=== PATIENT | male | born 1955 | race Caucasian/White ===

== ENCOUNTER 2016-11-05 18:14 | Inpatient (IN) | payer BC ==
[2016-11-05] MEDS ORDERED: Eptifibatide 20 mg/10mL Inj IVP ONE ×2 (18:24→18:26)
[2016-11-05] MEDS ORDERED: Morphine 2 mg/ml ISec IVP STA (18:27)
[2016-11-05] MEDS ORDERED: Morphine 2 mg/ml ISec ONE ×2 (18:34→19:10)
[2016-11-05] MEDS ORDERED: Eptifibatide 0.75 mg/ml 100 ML IV ONE (18:35)
[2016-11-05] MEDS ORDERED: Metoprolol 1 mg/ml Inj IVP STA (18:35)
[2016-11-05] MEDS ORDERED: Metoprolol 1 mg/ml Inj IVP ONE (18:38)
[2016-11-05] MEDS ORDERED: Lidocaine 2% Inj (20ml) ONE (18:38)
[2016-11-05] MEDS ORDERED: Phenylephrine 10 mg/ml Inj ONE (18:39)
[2016-11-05] MEDS ORDERED: Midazolam 2 MG/2 ML VIAL ONE ×2 (18:39→19:06)
[2016-11-05] MEDS ORDERED: Nitroglycerin 50mg in D5W 250 ML IV ONE ×2 (18:41→18:43)
[2016-11-05] MEDS ORDERED: Iodixanol 320 MG/ML 200 ML BOTTLE IV ONE (18:41)
[2016-11-05] MEDS ORDERED: Iodixanol 320 MG/ML 100 ML BOTTLE IV ONE (18:41)
[2016-11-05] MEDS ORDERED: Iohexol 350mgl/ml 50 ML ONE (18:41)
[2016-11-05 18:42] LABS: ADD MANUAL DIFF? NO
[2016-11-05 18:43] LABS: BASO # 0.03 K/mm3 (0.0-2.0); BASO % 0.4 % (0.0-3.0); EOS # 0.3 (0.0-0.7); EOS % 3.6 % (1.5-5.0); GRAN # 4.97 (1.4-6.5); GRAN % 59.3 % (50.0-68.0); HEMATOCRIT 29.1 % (42.0-52.0); LYMPH # 2.6 (1.2-3.4); LYMPH % 30.5 % (22.0-35.0); MEAN CELL VOLUME 72.4 fL (80.0-105.0); MEAN CORPUSCULAR HEMOGLOBIN 21.9 pg (25.0-35.0); MEAN CORPUSCULAR HGB CONC 30.2 g/dl (31.0-37.0); MEAN PLATELET VOLUME 9.6 fl (7.0-11.0); MONO # 0.5 (0.1-0.6); MONO % 6.2 % (1.0-6.0); PLATELET COUNT 239 10^3/uL (120.0-450.0); RED CELL DISTRIBUTION WIDTH 17.3 % (11.5-14.5); WHITE BLOOD COUNT 8.4 10^3/ul (4.5-11.0)
[2016-11-05 18:48] LABS: ALKALINE PHOSPHATASE 65 U/L (38-133); ALT/SGPT 15 U/L (7-56); AST/SGOT 54 U/L (15-59); BILIRUBIN,TOTAL 0.4 mg/dL (0.2-1.3); BLOOD UREA NITROGEN 19 mg/dL (7-21); CALCIUM 8.8 mg/dL (8.4-10.5); CARBON DIOXIDE 27 mmol/L (21-33); CHLORIDE 107 mmol/L (98-107); GFR AFRICAN-AMERICAN > 60; GLUCOSE,RANDOM 173 mg/dL (70-110); INR 1.04 (0.93-1.08); LIPASE 71 U/L (23-300); MAGNESIUM 1.9 mg/dL (1.7-2.2); PARTIAL THROMBOPLASTIN TIME 21.9 Seconds (23.7-30.8); POTASSIUM 3.7 mmol/L (3.6-5.0); SODIUM 146 mmol/L (132-148); TOTAL PROTEIN 7.9 g/dL (5.8-8.3)
--- NOTE | 2016-11-05 18:49 | ED PDOC ---
Arrival/HPI - General Chief Complaint: Chest Pain Time Seen by Provider: 11/05/16 18:22 Historian: Patient - History of Present Illness Narrative History of Present Illness (Text): 11/05/16 18:45 61 y.o. male whose pmhx includes anemia who is BIB EMS because he developed an acute substernal chest pain radiating to both shoulders associated with diaphoresis and n/v shortly prior to calling EMS. The patient had just begun shoveling snow. He took asa prior to EMS arriving. He said he had a heavy lunch earlier this afternoon. No fever or dizziness. Time/Duration: Prior to Arrival Past Medical History - Infectious Disease Hx of Infectious Diseases: None - Cardiac Hx Cardiac Disorders: No - Pulmonary Hx Respiratory Disorders: No - Neurological Hx Neurological Disorder: No - HEENT Hx HEENT Disorder: No - Renal Hx Renal Disorder: No - Endocrine/Metabolic Hx Endocrine Disorders: No - Hematological/Oncological Hx Blood Disorders: Yes - Integumentary Hx Dermatological Disorder: No - Musculoskeletal/Rheumatological Hx Musculoskeletal Disorders: No - Gastrointestinal Hx Gastrointestinal Disorders: Yes (RECTAL BLEEDING) - Genitourinary/Gynecological Hx Genitourinary Disorders: Yes (difficulty urinating) - Psychiatric Hx Psychophysiologic Disorder: No - Anesthesia Hx Anesthesia: No (denies) - Suicidal Assessment Feels Threatened In Home Enviroment: No Family/Social History Family/Social History: CAD/AR Smoking Status: Never Smoked Hx Alcohol Use: No Allergies/Home Meds Allergies/Adverse Reactions: Allergies No Known Allergies Allergy (Verified 01/16/12 14:37) Home Medications: Home Meds Medication Instructions Recorded Confirmed No Known Home Med 11/05/16 11/05/16 Review of Systems - Review of Systems Constitutional: absent: Fatigue, Fevers Eyes: Normal ENT: Normal Respiratory: absent: SOB Cardiovascular: Chest Pain Gastrointestinal: Nausea, Vomiting. absent: Abdominal Pain Genitourinary Male: Normal Musculoskeletal: Normal Skin: Normal Neurological: absent: Headache, Dizziness Endocrine: Normal Hemo/Lymphatic: Normal Psychiatric: Normal Physical Exam Vital Signs Temp Pulse Resp BP Pulse Ox 11/05/16 18:48 73 21 133/103 H 100 11/05/16 18:40 87 22 132/83 100 11/05/16 18:32 150 H 20 133/92 H 97 11/05/16 18:25 98.7 F 78 16 124/89 95 Temperature: Afebrile Blood Pressure: Normal Pulse: Regular Respiratory Rate: Normal Appearance: Positive for: Ill-Appearing Pain Distress: None Mental Status: Positive for: Alert and Oriented X 3 - Systems Exam Head: Present: Atraumatic, Normocephalic Pupils: Present: PERRL Conjunctiva: Present: Normal Mouth: Present: Moist Mucous Membranes Pharnyx: Present: Normal. No: ERYTHEMA Neck: Present: Normal Range of Motion Respiratory/Chest: Present: Clear to Auscultation, Good Air Exchange. No: Respiratory Distress, Accessory Muscle Use Cardiovascular: Present: Regular Rate and Rhythm, Normal S1, S2. No: Murmurs Abdomen: Present: Normal Bowel Sounds. No: Tenderness, Distention, Peritoneal Signs Back: Present: Normal Inspection Upper Extremity: Present: Normal Inspection. No: Cyanosis, Edema Lower Extremity: Present: Normal Inspection. No: Edema Neurological: Present: GCS=15, CN II-XII Intact, Speech Normal Skin: Present: Diaphoretic, Pale. No: Rashes Psychiatric: Present: Alert, Oriented x 3, Normal Insight, Normal Concentration Medical Decision Making ED Course and Treatment: 11/05/16 18:52 61 y.o. male presenting to the ED with acute SSCP and ill-appearing. EKG showing marked acute STEMI. Dr. Osullivan notified immediately. Code Heart called at 18:16. Patient given asa and integrillin (bolus x 2 and drip), per Dr. Osullivan. Also given a dose of lopressor, morphine, and zofran. Still c/o chest pain though appearing more comfortable. Started on nitro drip. 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 11/05/16 19:14 Case also discussed with Dr. Pizano as patient will wind up on her service. She did confirm that he has a history of anemia; she thinks with a usual Hgb of level around 9 - 10, so he is not far from his baseline. - Critical Care Critical Care Minutes: 30 minutes - Lab Interpretations Lab Results: 11/05/16 18:35 11/05/16 18:30 Lab Results 11/05/16 18:38: Blood Type Pending, Antibody Screen Pending, BBK History Checked No verified bt 11/05/16 18:35: WBC 8.4, RBC 4.02, Hgb 8.8 L, Hct 29.1 L, MCV 72.4 L, MCH 21.9 L , MCHC 30.2 L, RDW 17.3 H, Plt Count 239, MPV 9.6, Gran % 59.3, Lymph % (Auto) 30.5, [place] % (Auto) 6.2 H, Eos % (Auto) 3.6, Baso % (Auto) 0.4, Gran # 4.97, Lymph # 2.6, [place] # 0.5, Eos # 0.3, Baso # 0.03 11/05/16 18:30: PT 11.2, INR 1.04, APTT 21.9 L, Sodium 146, Potassium 3.7, Chloride 107, Carbon Dioxide 27, Anion Gap 16, BUN 19, Creatinine 0.8, Est GFR ( Amer) > 60, Est GFR (Non-Af Amer) > 60, Random Glucose 173 H, Calcium 8.8, Magnesium 1.9, Total Bilirubin 0.4, AST 54, ALT 15, Alkaline Phosphatase 65 , Lactate Dehydrogenase 302 L, Total Creatine Kinase 48, Troponin I < 0.01, NT- Pro-B Natriuret Pep 24.1, Total Protein 7.9, Albumin 3.9, Globulin 4.0, Albumin/ Globulin Ratio 1.0 L, Lipase 71 - RAD Interpretation Narrative RAD Interpretations (Text): 11/05/16 18:57 CXR: nad Radiology Orders: 11/05/16 18:25 CHEST PORTABLE [RAD] Stat - EKG Interpretation EKG Interpretation (Text): 11/05/16 18:57 NSR @ 79 with AMINAH v1-v6, I, avL with reciprocal changes inferiorly. Interpreted by ED Physician: Yes Type: 12 lead EKG - Medication Orders Current Medication Orders: Discontinued Medications Aspirin (Aspirin) Confirm Administered Dose 325 mg .ROUTE .STK-MED ONE Stop: 11/05/16 18:24 Last Admin: 11/05/16 18:23 Dose: Aspirin (Aspirin Chewable) 324 mg PO STAT STA Stop: 11/05/16 18:27 Last Admin: 11/05/16 18:26 Dose: Atropine Sulfate (Atropine) Confirm Administered Dose 1 mg .ROUTE .STK-MED ONE Stop: 11/05/16 18:39 Bivalirudin (Angiomax) Confirm Administered Dose 250 mg IV .STK-MED ONE Stop: 11/05/16 18:39 Eptifibatide (Integrilin Bolus) Confirm Administered Dose 20 mg IVP .STK-MED ONE Stop: 11/05/16 18:25 Last Admin: 11/05/16 18:26 Dose: 20 MG IVP Administration Document 11/05/16 18:26 [facility] (Rec: 11/05/16 18:56 [facility] [id number]) Charges for Administration # of IVP Administrations 1 Eptifibatide (Integrilin Bolus) Confirm Administered Dose 20 mg IVP .STK-MED ONE Stop: 11/05/16 18:27 Last Admin: 11/05/16 18:36 Dose: 20 MG IVP Administration Document 11/05/16 18:36 [facility] (Rec: 11/05/16 18:57 [facility] [id number]) Charges for Administration # of IVP Administrations 1 Fentanyl (Fentanyl) Confirm Administered Dose 100 mcg .ROUTE .STK-MED ONE Stop: 11/05/16 18:41 Heparin Sodium (Porcine) (Heparin) Confirm Administered Dose 10,000 units .ROUTE .STK-MED ONE Stop: 11/05/16 18:40 Eptifibatide (Integrilin) Confirm Administered Dose 100 mls @ ud IV .STK-MED ONE Stop: 11/05/16 18:36 Last Admin: 11/05/16 18:36 Dose: 12 MG Comments: 12ml eMAR Start Stop Document 11/05/16 18:36 [facility] (Rec: 11/05/16 19:03 [facility] [id number]) Intravenous Solution Start Date 11/05/16 Start Time 18:36 Nitroglycerin/Dextrose (Nitroglycerin 50 Mg/250 Ml D5w) Confirm Administered Dose 250 mls @ ud IV .STK-MED ONE Stop: 11/05/16 18:42 Last Admin: 11/05/16 18:48 Dose: Heparin Sodium (Porcine) (Heparin 1000 Units/500 Ml Ns) Confirm Administered Dose 1,500 mls @ ud IV .STK-MED ONE Stop: 11/05/16 18:42 Nitroglycerin/Dextrose (Nitroglycerin 50 Mg/250 Ml D5w) Confirm Administered Dose 250 mls @ ud IV .STK-MED ONE Stop: 11/05/16 18:44 Last Admin: 11/05/16 18:44 Dose: 3 MG Comments: 3 ml eMAR Start Stop Document 11/05/16 18:44 [facility] (Rec: 11/05/16 19:06 [facility] [id number]) Intravenous Solution Start Date 11/05/16 Start Time 18:44 Amiodarone HCl/Dextrose (Nexterone 150 Mg In Dextrose 100 Ml (Premix)) Confirm Administered Dose 100 mls @ ud .ROUTE .STK-MED ONE Stop: 11/05/16 19:13 Iodixanol (Visipaque 320 Mg/Ml 100 Ml) Confirm Administered Dose 100 ml IV .STK- MED ONE Stop: 11/05/16 18:42 Iodixanol (Visipaque 320 Mg/Ml 200 Ml) Confirm Administered Dose 200 ml IV .STK- MED ONE Stop: 11/05/16 18:42 Iohexol (Omnipaque 350mg/Ml 50 Ml) Confirm Administered Dose 50 ml .ROUTE .STK- MED ONE Stop: 11/05/16 18:42 Lidocaine HCl (Lidocaine 2% 20ml Vial) Confirm Administered Dose 20 ml .ROUTE .STK-MED ONE Stop: 11/05/16 18:39 Metoprolol Tartrate (Lopressor) 5 mg IVP STAT STA Stop: 11/05/16 18:36 Last Admin: 11/05/16 18:35 Dose: 5 MG IVP Administration Document 11/05/16 18:35 [facility] (Rec: 11/05/16 19:04 [facility] [id number]) Charges for Administration # of IVP Administrations 1 Metoprolol Tartrate (Lopressor) Confirm Administered Dose 5 mg IVP .STK-MED ONE Stop: 11/05/16 18:39 Last Admin: 11/05/16 18:38 Dose: Midazolam HCl (Versed Inj) Confirm Administered Dose 2 mg .ROUTE .STK-MED ONE Stop: 11/05/16 18:40 Midazolam HCl (Versed Inj) Confirm Administered Dose 2 mg .ROUTE .STK-MED ONE Stop: 11/05/16 19:07 Morphine Sulfate (Morphine) 2 mg IVP STAT STA Stop: 11/05/16 18:28 Last Admin: 11/05/16 18:21 Dose: 2 MG MAR Pain Assessment Document 11/05/16 18:21 [facility] (Rec: 11/05/16 18:58 [facility] [id number]) Pain Reassessment Is this a pain reassessment? Yes Sleep Is patient sleeping during reassessment? No Presence of Pain Presence of Pain Yes IVP Administration Document 11/05/16 18:21 [facility] (Rec: 11/05/16 18:58 [facility] [id number]) Charges for Administration # of IVP Administrations 1 Morphine Sulfate (Morphine) Confirm Administered Dose 2 mg .ROUTE .STK-MED ONE Stop: 11/05/16 18:35 Last Admin: 11/05/16 18:34 Dose: Morphine Sulfate (Morphine) Confirm Administered Dose 2 mg .ROUTE .STK-MED ONE Stop: 11/05/16 19:11 Ondansetron HCl (Zofran Inj) 4 mg IVP STAT STA Stop: 11/05/16 18:27 Last Admin: 11/05/16 18:20 Dose: 4 MG IVP Administration Document 11/05/16 18:20 [facility] (Rec: 11/05/16 18:58 [facility] [id number]) Charges for Administration # of IVP Administrations 1 Ondansetron HCl (Zofran Inj) Confirm Administered Dose 4 mg .ROUTE .STK-MED ONE Stop: 11/05/16 18:35 Last Admin: 11/05/16 18:36 Dose: Phenylephrine HCl (Phenylephrine Inj) Confirm Administered Dose 10 mg .ROUTE .STK-MED ONE Stop: 11/05/16 18:40 Ticagrelor (Brilinta) Confirm Administered Dose 180 mg .ROUTE .STK-MED ONE Stop: 11/05/16 18:47 Last Admin: 11/05/16 18:44 Dose: 180 MG Disposition/Present on Arrival - Present on Arrival Any Indicators Present on Arrival: No History of DVT/PE: No History of Uncontrolled Diabetes: No Urinary Catheter: No History of Decub. Ulcer: No History Surgical Site Infection Following: None - Disposition Have Diagnosis and Disposition been Completed?: Yes Diagnosis: Acute ST elevation myocardial infarction (STEMI), Anemia Disposition: HOSPITALIZED Disposition Time: 18:16 Patient Plan: Admission, ICU Patient Problems: Current Active Problems Problem Status Diagnosed Acute ST elevation myocardial infarction (STEMI) Acute Condition: CRITICAL
[2016-11-05 19:01] LABS: TROPONIN I < 0.01 ng/mL
[2016-11-05] MEDS ORDERED: Amiodarone 150 mg/D5W 100 ml 100 ML ONE (19:12)
--- NOTE | 2016-11-05 19:16 | CP.PCM.CON ---
<Danielle Perez - Last Filed: 11/05/16 22:57> History of Present Illness - History of Present Illness History of Present Illness: PGY-[address] Terry ICU consultation: Cardiac Cath pt s/p code heart 61 years old male with chronic anemia brought by EMS for an acute substernal chest pain radiating to both shoulders associated with diaphoresis and n/v shortly after just begun shoveling snow. He took asa prior to EMS arriving. He said he had a heavy lunch earlier this afternoon. No fever or dizziness. EKG on arrival showed acute STEMI. NSR @ 79 with AMINAH v1-v6, avL with reciprical changes inferiorly. Code heart called at 18:16. Pt was given ASA and integrillin (bolus x 2 and drip), lopressor x 1, morphine, zofran. Then started on nitro drip and went to laboratory animal facility supervisor. Pt had V. fib arrest requiring defibrillator to shock. His blood pressure was low from morphine and improves after narcan. Pt had a stenosis in LAD and had a DANIELLE placement. Seed Potato Cutter recommends amiodarone drip x 24 hours with integrillin. BP watch. Pt is in the ICU at this moment. Denies chest pain, SOB, N/V/D/C, dysuria. At baseline, pt has exertional chest pain, relieved at rest, no exertional dyspnea. Able to climb one flight of stairs w/o SOB. use 1 pillow at night. Last stress test was last year. Pt states that it was normal. PMH Chronic Anemia Gastritis Internal and external hemorroids PSH None FH Dad 70s for heart attack SH Denies ever smoke. Drink twice a year. Denies drug All NKDA Med None PMD - Dr. Pizano Seed Potato Cutter - Dr. Palma Past Patient History - Infectious Disease Hx of Infectious Diseases: None - Past Medical History & Family History Past Medical History?: Yes - Past Social History Smoking Status: Never Smoked - CARDIAC Hx Cardiac Disorders: No - PULMONARY Hx Respiratory Disorders: No - NEUROLOGICAL Hx Neurological Disorder: No - HEENT Hx HEENT Problems: No - RENAL Hx Chronic Kidney Disease: No - ENDOCRINE/METABOLIC Hx Endocrine Disorders: No - HEMATOLOGICAL/ONCOLOGICAL Hx Blood Disorders: Yes - INTEGUMENTARY Hx Dermatological Problems: No - MUSCULOSKELETAL/RHEUMATOLOGICAL Hx Musculoskeletal Disorders: No - GASTROINTESTINAL Hx Gastrointestinal Disorders: Yes (RECTAL BLEEDING) - GENITOURINARY/GYNECOLOGICAL Hx Genitourinary Disorders: Yes (difficulty urinating) - PSYCHIATRIC Hx Psychophysiologic Disorder: No - SURGICAL HISTORY Hx Surgeries: No (denies) - ANESTHESIA Hx Anesthesia: No (denies) Meds Allergies/Adverse Reactions: Allergies Allergy/AdvReac Type Severity Reaction Status Date / Time No Known Allergies Allergy Verified 01/16/12 14:37 Physical Exam - Constitutional Appears: No Acute Distress - Head Exam Head Exam: ATRAUMATIC, NORMOCEPHALIC - Eye Exam Eye Exam: EOMI, Normal appearance, PERRL - ENT Exam ENT Exam: Mucous Membranes Moist - Neck Exam Neck exam: Positive for: Normal Inspection - Respiratory Exam Respiratory Exam: Clear to Auscultation Bilateral, NORMAL BREATHING PATTERN. absent: Rales, Rhonchi, Wheezes - Cardiovascular Exam Cardiovascular Exam: REGULAR RHYTHM, +S1, +S2. absent: Systolic Murmur - GI/Abdominal Exam GI & Abdominal Exam: Normal Bowel Sounds, Soft. absent: Distended, Rigid, Tenderness - Extremities Exam Extremities exam: Positive for: normal capillary refill, pedal pulses present. Negative for: calf tenderness, pedal edema Additional comments: R groin dressing d/c/i - Neurological Exam Neurological exam: Alert, Oriented x3 - Skin Skin Exam: Dry, Warm Results - Vital Signs Recent Vital Signs: Last Vital Signs Temp 98.7 F 11/05/16 18:25 Pulse 73 11/05/16 18:48 Resp 21 11/05/16 18:48 BP 133/103 H 11/05/16 18:48 Pulse Ox 100 11/05/16 18:48 - Labs Result Diagrams: 11/05/16 18:35 11/05/16 18:30 Labs: Laboratory Results - last 24 hr 11/05/16 11/05/16 11/05/16 18:30 18:35 18:38 WBC 8.4 RBC 4.02 Hgb 8.8 L Hct 29.1 L MCV 72.4 L MCH 21.9 L MCHC 30.2 L RDW 17.3 H Plt Count 239 MPV 9.6 Gran % 59.3 Lymph % (Auto) 30.5 [place] % (Auto) 6.2 H Eos % (Auto) 3.6 Baso % (Auto) 0.4 Gran # 4.97 Lymph # 2.6 [place] # 0.5 Eos # 0.3 Baso # 0.03 PT 11.2 INR 1.04 APTT 21.9 L Sodium 146 Potassium 3.7 Chloride 107 Carbon Dioxide 27 Anion Gap 16 BUN 19 Creatinine 0.8 Est GFR ( Amer) > 60 Est GFR (Non-Af Amer) > 60 Random Glucose 173 H Calcium 8.8 Magnesium 1.9 Total Bilirubin 0.4 AST 54 ALT 15 Alkaline Phosphatase 65 Lactate Dehydrogenase 302 L Total Creatine Kinase 48 Troponin I < 0.01 NT-Pro-B Natriuret Pep 24.1 Total Protein 7.9 Albumin 3.9 Globulin 4.0 Albumin/Globulin Ratio 1.0 L Lipase 71 BBK History Checked No verified bt Assessment & Plan - Assessment and Plan (Free Text) Plan: 61 M, with Hx of stable angina and chronic anemia hx of IV Fe, had a STEMI today at anterior heart s/p PTCA. DANIELLE placed in LAD. He had v-fib s/p shock. BP was low from morphine and improves on narcan. Neuro: Mentation at baseline CV: Amiodarone drip Brilinta ASA 81 Integrillin drip Lipitor 40 Lisinopril 2.5 Lopressor 25 BID NS @ 100 Check lipid, a1c Pulm: Maintain [id number] Duoneb GI: Protonix ppx Heme: Microcytic anemia at 8.8 SCD unaffected leg Fe study, B12. folate, stool occult Renal/: Monitor Urine output Continue to monitor electrolytes will replace/replete as needed Endo: Maintain euglycemia Check TSH, T4 ID: None S/R/D/w Dr. Terry - Date & Time Date: 11/05/16 Time: 20:25 <Sam Terry MD - Last Filed: 11/06/16 07:22> Meds - Medications Medications: Current Medications Acetaminophen (Tylenol 325mg Tab) 650 mg PO Q4H PRN PRN Reason: Pain, Mild (1-3) Aspirin (Ecotrin) 81 mg PO DAILY RADHA Atorvastatin Calcium (Lipitor) 40 mg PO DIN RADHA Eptifibatide (Integrilin) 100 mls @ 11.322 mls/hr IV .Q8H50M RADHA; 2 MCG/KG/MIN PRN Reason: Protocol Stop: 11/06/16 12:00 Last Admin: 11/06/16 00:20 Dose: 11.322 mls/hr Amiodarone HCl/Dextrose (Nexterone 360 Mg In D5w 200 Ml (Premix)) 200 mls @ 16.667 mls/hr IV .Q12H RADHA; 0.5 MG/MIN PRN Reason: Protocol Last Admin: 11/06/16 02:05 Dose: 16.667 mls/hr Lisinopril (Zestril) 2.5 mg PO DAILY RADHA Metoprolol Tartrate (Lopressor) 25 mg PO BID RADHA Morphine Sulfate (Morphine) 2 mg IVP Q6H PRN PRN Reason: Pain, moderate (4-7) Pantoprazole Sodium (Protonix Inj) 40 mg IVP DAILY RADHA Ticagrelor (Brilinta) 90 mg PO BID RADHA Zolpidem Tartrate (Ambien) 5 mg PO HS PRN PRN Reason: Insomnia Results - Vital Signs Recent Vital Signs: Last Vital Signs Temp 97.5 F L 11/06/16 04:00 Pulse 75 11/06/16 04:00 Resp 22 11/06/16 04:00 BP 114/55 L 11/06/16 04:00 Pulse Ox 97 11/06/16 04:00 - Labs Result Diagrams: 11/06/16 05:30 11/06/16 05:30 Labs: Laboratory Results - last 24 hr 11/05/16 11/05/16 11/05/16 18:30 18:35 18:38 WBC 8.4 RBC 4.02 Hgb 8.8 L Hct 29.1 L MCV 72.4 L MCH 21.9 L MCHC 30.2 L RDW 17.3 H Plt Count 239 MPV 9.6 Gran % 59.3 Lymph % (Auto) 30.5 [place] % (Auto) 6.2 H Eos % (Auto) 3.6 Baso % (Auto) 0.4 Gran # 4.97 Lymph # 2.6 [place] # 0.5 Eos # 0.3 Baso # 0.03 PT 11.2 INR 1.04 APTT 21.9 L Sodium 146 Potassium 3.7 Chloride 107 Carbon Dioxide 27 Anion Gap 16 BUN 19 Creatinine 0.8 Est GFR ( Amer) > 60 Est GFR (Non-Af Amer) > 60 Random Glucose 173 H Calcium 8.8 Magnesium 1.9 Iron TIBC % Saturation Total Bilirubin 0.4 AST 54 ALT 15 Alkaline Phosphatase 65 Lactate Dehydrogenase 302 L Total Creatine Kinase 48 CK-MB (CK-2) CK-MB (CK-2) % Troponin I < 0.01 NT-Pro-B Natriuret Pep 24.1 Total Protein 7.9 Albumin 3.9 Globulin 4.0 Albumin/Globulin Ratio 1.0 L Triglycerides Cholesterol LDL Cholesterol Direct HDL Cholesterol Lipase 71 Free T4 Thyroxine (T4) TSH 3rd Generation Blood Type A POSITIVE Blood Type Confirm Antibody Screen Negative BBK History Checked No verified bt 11/05/16 11/06/16 11/06/16 18:45 02:33 05:30 WBC 12.8 H D 11.4 H RBC 4.41 4.22 Hgb 9.7 L 9.2 L Hct 31.9 L 30.4 L MCV 72.3 L 72.0 L MCH 22.0 L 21.8 L MCHC 30.4 L 30.3 L RDW 17.4 H 17.5 H Plt Count 251 258 MPV 9.7 10.4 Gran % 93.8 H Lymph % (Auto) 3.7 L [place] % (Auto) 2.4 Eos % (Auto) 0.0 L Baso % (Auto) 0.1 Gran # 11.97 H Lymph # 0.5 L [place] # 0.3 Eos # 0.0 Baso # 0.01 PT 11.1 INR 1.03 APTT 23.6 L Sodium 142 142 Potassium 4.7 4.4 Chloride 107 107 Carbon Dioxide 28 27 Anion Gap 12 12 BUN 18 18 Creatinine 0.8 0.7 Est GFR ( Amer) > 60 > 60 Est GFR (Non-Af Amer) > 60 > 60 Random Glucose 159 H 139 H Calcium 8.4 8.2 L Magnesium 1.9 Iron 11 L TIBC 389 % Saturation 3 L Total Bilirubin 0.3 AST 594 H ALT 88 H Alkaline Phosphatase 62 Lactate Dehydrogenase 1888 H Total Creatine Kinase 6320 H CK-MB (CK-2) 400.0 H CK-MB (CK-2) % 6.3 H Troponin I NT-Pro-B Natriuret Pep Total Protein 7.7 Albumin 3.8 Globulin 3.9 Albumin/Globulin Ratio 1.0 L Triglycerides 51 Cholesterol 161 LDL Cholesterol Direct 113 HDL Cholesterol 27 L Lipase Free T4 1.07 Thyroxine (T4) 6.3 TSH 3rd Generation 0.59 Blood Type Blood Type Confirm A POSITIVE Antibody Screen BBK History Checked Attending/Attestation - Attestation I have personally seen and examined this patient.: Yes I have fully participated in the care of the patient.: Yes I have reviewed all pertinent clinical information: Yes Notes (Text): 11/06/16 07:21 -I agree with the above consult note done by the resident physician. Briefly, the patient is a 61 year old man admitted for STEMI and taken directly to the laboratory animal facility supervisor where he received a DANIELLE to the LAD. The procedure was complicated by ventricular tachycardia requiring chest compressions defibrillation. The patient is now stable and chest pain free, on Amioadarone drip.
[2016-11-05] MEDS ORDERED: Naloxone 0.4 mg/ml Inj (Adult) ONE (19:27)
[2016-11-05] MEDS ORDERED: Sodium Chloride 0.9% 1,000 ML IV SCH (19:45)
[2016-11-05] MEDS ORDERED: Amiodarone 360 mg/D5W 200 ml 200 ML IV SCH ×2 (20:00→20:30)
[2016-11-05] MEDS: Eptifibatide 0.75 mg/ml 100 ML IV SCH (20:00)
[2016-11-05] MEDS ORDERED: Amiodarone 150 mg/D5W 100 ml 100 ML IVPB ONE (20:02)
--- NOTE | 2016-11-05 20:31 | CARDCATH ---
PROCEDURE DATE: 11/05/2016 HISTORY: The patient is a 61-year-old male who presents with an acute anterior wall myocardial infar ction to the Emergency Room. He presented to the Emergency Room approximately 30 minutes after his o nset of symptoms which were brought on after shoveling snow. PAST MEDICAL HISTORY: Notable for history of anemia with documented hemorrhoids in the past. No pre vious bleeding history or allergies known by the family. There is no previous cardiac history. The EKG in the Emergency Room showed anterolateral ST elevations across his anterior precordium. The patient was pretreated with p.o. 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 PROCEDURE: Emergency PTCA and stent of an LAD preceded by left heart catheterization with coronary a ngiography and left ventriculogram. The right femoral artery was cannulated with a 6-[place] sheath. The findings on catheterization revealed a left ventricle that showed marked anterior apical to akinetic segments. Estimated ejection fraction is approximately 30%. His coronary anatomy revealed a right dominant circulation. The RCA revealed diffuse atherosclerosis without critical lesions. The left main artery was unremarkable. The circumflex artery and obtuse marginal branches were free of significant disease. The LAD revealed a total occlusion in the proximal LAD with a filling defect consistent with a thromb us. During the catheterization, the patient developed ventricular fibrillation which required defibrillat ion. The patient was defibrillated with 200 joules with reversion to normal sinus rhythm. The patie nt required transient pressors to maintain blood pressure. The patient was given 4000 units of intravenous heparin. The XB guiding catheter was placed in the ostium of the left main. An 0.014 ATW wire was used to crop puller ss the total occlusion. A 2.0 balloon was utilized to predilate the lesion. A 3.5 mm x 15 mm drug-eluting stent was placed and deployed at 12 atmospheres of pressure. Repeat co ronary angiography revealed an excellent result with no residual stenosis and SENDY 3 flow. Cessation of electrical irritability of the left ventricle with obtained after the 150 IV bolus of amiodarone as well as reperfusion in his anterior wall. Angio-Seal was used to close the femoral artery site. The patient tolerated the procedure well. In summary, the procedure was successful for an emergency PTCA and stent of an occluded proximal LAD preceded by cardiac catheterization which reveals single vessel disease and marked anteroapical hypok inesis. The procedure was complicated by an episode of ventricular fibrillation requiring defibrillation. Given these findings, the patient will remain on Integrilin for 18 hours, intravenous amiodarone for 24 hours, and will be transferred to the CCU. He is transferred to the CCU in stable condition. Dave Osullivan MD cc: [id number] TT: 11/05/2016 20:30:06 rn
[2016-11-05 21:28] VITALS: BMI 25.8
[2016-11-06] MEDS: Eptifibatide 0.75 mg/ml 100 ML IV SCH ×2 (00:20→10:17)
[2016-11-06] MEDS ORDERED: Amiodarone 360 mg/D5W 200 ml 200 ML IV SCH (02:00)
[2016-11-06] MEDS ORDERED: Morphine 2 mg/ml ISec IVP ONE (02:28)
[2016-11-06 02:41] LABS: ADD MANUAL DIFF? NO
[2016-11-06 02:52] LABS: ALKALINE PHOSPHATASE 62 U/L (38-133); ALT/SGPT 88 U/L (7-56); AST/SGOT 594 U/L (15-59); BASO # 0.01 K/mm3 (0.0-2.0); BASO % 0.1 % (0.0-3.0); BILIRUBIN,TOTAL 0.3 mg/dL (0.2-1.3); BLOOD UREA NITROGEN 18 mg/dL (7-21); CALCIUM 8.4 mg/dL (8.4-10.5); CARBON DIOXIDE 28 mmol/L (21-33); CHLORIDE 107 mmol/L (98-107); GFR AFRICAN-AMERICAN > 60; GLUCOSE,RANDOM 159 mg/dL (70-110); GRAN # 11.97 (1.4-6.5); GRAN % 93.8 % (50.0-68.0); HEMATOCRIT 31.9 % (42.0-52.0); LYMPH # 0.5 (1.2-3.4); LYMPH % 3.7 % (22.0-35.0); MAGNESIUM 1.9 mg/dL (1.7-2.2); MEAN CELL VOLUME 72.3 fL (80.0-105.0); MEAN CORPUSCULAR HGB CONC 30.4 g/dl (31.0-37.0); MEAN PLATELET VOLUME 9.7 fl (7.0-11.0); MONO # 0.3 (0.1-0.6); MONO % 2.4 % (1.0-6.0); PLATELET COUNT 251 10^3/uL (120.0-450.0); POTASSIUM 4.7 mmol/L (3.6-5.0); RED CELL DISTRIBUTION WIDTH 17.4 % (11.5-14.5); SODIUM 142 mmol/L (132-148); TOTAL PROTEIN 7.7 g/dL (5.8-8.3); WHITE BLOOD COUNT 12.8 10^3/ul (4.5-11.0)
[2016-11-06 02:58] LABS: INR 1.03 (0.93-1.08); PARTIAL THROMBOPLASTIN TIME 23.6 Seconds (23.7-30.8)
[2016-11-06 06:39] LABS: HEMATOCRIT 30.4 % (42.0-52.0); MEAN CORPUSCULAR HEMOGLOBIN 21.8 pg (25.0-35.0); MEAN CORPUSCULAR HGB CONC 30.3 g/dl (31.0-37.0); MEAN PLATELET VOLUME 10.4 fl (7.0-11.0); PLATELET COUNT 258 10^3/uL (120.0-450.0); RED CELL DISTRIBUTION WIDTH 17.5 % (11.5-14.5); WHITE BLOOD COUNT 11.4 10^3/ul (4.5-11.0)
[2016-11-06 06:40] LABS: BLOOD UREA NITROGEN 18 mg/dL (7-21); CALCIUM 8.2 mg/dL (8.4-10.5); CARBON DIOXIDE 27 mmol/L (21-33); CHLORIDE 107 mmol/L (98-107); CHOLESTEROL 161 mg/dL (130-200); GFR AFRICAN-AMERICAN > 60; GLUCOSE,RANDOM 139 mg/dL (70-110); POTASSIUM 4.4 mmol/L (3.6-5.0); SODIUM 142 mmol/L (132-148)
[2016-11-06 06:48] LABS: ADD MANUAL DIFF? YES; IRON 11 ug/dL (45-180)
[2016-11-06 06:56] LABS: FREE T4 1.07 ng/dL (0.78-2.19); T4 6.3 ug/dL (5.5-11.0)
[2016-11-06 07:09] LABS: THYROID STIMULATING HORMONE 0.59 mIU/mL (0.46-4.68)
[2016-11-06] MEDS ORDERED: Morphine 2 mg/ml ISec IVP PRN (07:14)
--- NOTE | 2016-11-06 07:54 | CP.CCUPN ---
<Kaley Ivory - Last Filed: 11/06/16 13:08> CCU Subjective - Physician Review Events Since Last Encounter (Free Text): 11/06/16 08:08 Patient seen and examined bedside. Still complaining of substernal CP and nausea. Has not had any episodes of emesis. Patient denies abd pain, SOB. 11/06/16 12:09 Patient taken back to label cutter by cardiology team, new troponin 181. Critical Care Time Spent (in minutes): 35 CCU Objective - Vital Signs / Intake & Output Vital Signs (Last 4 hours): Vital Signs Temp Pulse Resp BP Pulse Ox 11/06/16 06:00 68 14 123/83 97 11/06/16 05:00 72 22 108/72 99 11/06/16 04:28 67 21 97 11/06/16 04:00 97.5 F L 75 22 114/55 L 97 11/06/16 03:57 84 97 Intake and Output (Last 8hrs): Intake & Output 11/05/16 11/06/16 11/06/16 22:59 06:59 14:59 Intake Total 901 Output Total 350 Balance 551 Weight 160 lb 161 lb 1.6 oz Intake: IV 781 Right Hand 400 Right Antecubital 132 Right External Jugular 249 Oral 120 Output: Urine 350 Urine, Voided 350 Emesis 0 Other: # Voids Urine, Voided 1 # Bowel Movements 0 - Physical Exam Head: Positive for: Atraumatic, Normocephalic Pupils: Positive for: PERRL Conjunctiva: Positive for: Normal Mouth: Positive for: Moist Mucous Membranes Pharnyx: Positive for: Normal. Negative for: ERYTHEMA Neck: Positive for: Normal Range of Motion Respiratory/Chest: Positive for: Clear to Auscultation, Good Air Exchange. Negative for: Respiratory Distress, Accessory Muscle Use Cardiovascular: Positive for: Regular Rate and Rhythm, Normal S1, S2. Negative for: Murmurs Abdomen: Positive for: Normal Bowel Sounds. Negative for: Tenderness, Distention, Peritoneal Signs Back: Positive for: Normal Inspection Upper Extremity: Positive for: Normal Inspection. Negative for: Cyanosis, Edema Lower Extremity: Positive for: Normal Inspection. Negative for: Edema Neurological: Positive for: GCS=15, CN II-XII Intact, Speech Normal Skin: Positive for: Diaphoretic, Pale. Negative for: Rashes Psychiatric: Positive for: Alert, Oriented x 3, Normal Insight, Normal Concentration - Medications Active Medications: Active Medications Generic Name Dose Route Start Last Admin Trade Name Freq PRN Reason Stop Dose Admin Acetaminophen 650 mg 11/05/16 19:40 Tylenol 325mg Tab PO Q4H PRN Pain, Mild (1-3) Aspirin 81 mg 11/06/16 10:00 Ecotrin PO DAILY RADHA Atorvastatin Calcium 40 mg 11/06/16 17:00 Lipitor PO DIN RADHA Eptifibatide 100 mls @ 11.322 mls/hr 11/05/16 19:45 11/06/16 00:20 Integrilin IV 11/06/16 12:00 11.322 mls/hr .Q8H50M RADHA Administration Protocol 2 MCG/KG/MIN Amiodarone HCl/Dextrose 200 mls @ 16.667 mls/hr 11/06/16 02:00 11/06/16 02:05 Nexterone 360 Mg In D5w 200 Ml (Premix) IV 16.667 mls/hr .Q12H RADHA Administration Protocol 0.5 MG/MIN Lisinopril 2.5 mg 11/06/16 10:00 Zestril PO DAILY RADHA Metoprolol Tartrate 25 mg 11/06/16 10:00 Lopressor PO BID RADHA Morphine Sulfate 2 mg 11/06/16 07:14 Morphine IVP Q6H PRN Pain, moderate (4-7) Nitroglycerin 0.4 mg 11/06/16 07:45 11/06/16 07:46 Nitrostat Sl Tab SL 11/06/16 07:56 0.4 mg Q5M RADHA Administration Pantoprazole Sodium 40 mg 11/06/16 10:00 Protonix Inj IVP DAILY RADHA Ticagrelor 90 mg 11/06/16 10:00 Brilinta PO BID RADHA Zolpidem Tartrate 5 mg 11/05/16 19:40 Ambien PO HS PRN Insomnia - Patient Studies Lab Studies: Lab Studies 11/06/16 11/06/16 11/05/16 Range/Units 05:30 02:33 18:45 WBC 11.4 H 12.8 H D (4.5-11.0) 10^3/ul RBC 4.22 4.41 (3.5-6.1) 10^6/uL Hgb 9.2 L 9.7 L (14.0-18.0) gm/dL Hct 30.4 L 31.9 L (42.0-52.0) % MCV 72.0 L 72.3 L (80.0-105.0) fL MCH 21.8 L 22.0 L (25.0-35.0) pg MCHC 30.3 L 30.4 L (31.0-37.0) g/dl RDW 17.5 H 17.4 H (11.5-14.5) % Plt Count 258 251 (120.0-450.0) 10^3/uL MPV 10.4 9.7 (7.0-11.0) fl Gran % 93.8 H (50.0-68.0) % Lymph % (Auto) 3.7 L (22.0-35.0) % [place] % (Auto) 2.4 (1.0-6.0) % Eos % (Auto) 0.0 L (1.5-5.0) % Baso % (Auto) 0.1 (0.0-3.0) % Gran # 11.97 H (1.4-6.5) Lymph # 0.5 L (1.2-3.4) [place] # 0.3 (0.1-0.6) Eos # 0.0 (0.0-0.7) Baso # 0.01 (0.0-2.0) K/mm3 PT 11.1 (9.9-11.8) Seconds INR 1.03 (0.93-1.08) APTT 23.6 L (23.7-30.8) Seconds Sodium 142 142 (132-148) mmol/L Potassium 4.4 4.7 (3.6-5.0) mmol/L Chloride 107 107 (98-107) mmol/L Carbon Dioxide 27 28 (21-33) mmol/L Anion Gap 12 12 (10-20) BUN 18 18 (7-21) mg/dL Creatinine 0.7 0.8 (0.5-1.4) mg/dL Est GFR ( Amer) > 60 > 60 Est GFR (Non-Af Amer) > 60 > 60 Random Glucose 139 H 159 H (70-110) mg/dL Calcium 8.2 L 8.4 (8.4-10.5) mg/dL Magnesium 1.9 (1.7-2.2) mg/dL Iron 11 L (45-180) ug/dL TIBC 389 (261-462) ug/dL % Saturation 3 L (20-55) % Total Bilirubin 0.3 (0.2-1.3) mg/dL AST 594 H (15-59) U/L ALT 88 H (7-56) U/L Alkaline Phosphatase 62 (38-133) U/L Lactate Dehydrogenase 1888 H (333-699) U/L Total Creatine Kinase 6320 H (35-230) U/L CK-MB (CK-2) 400.0 H (0.0-3.6) ng/mL CK-MB (CK-2) % 6.3 H (2.5-3.0) % Troponin I ng/mL NT-Pro-B Natriuret Pep (0-450) pg/mL Total Protein 7.7 (5.8-8.3) g/dL Albumin 3.8 (3.0-4.8) g/dL Globulin 3.9 gm/dL Albumin/Globulin Ratio 1.0 L (1.1-1.8) Triglycerides 51 (35-160) mg/dL Cholesterol 161 (130-200) mg/dL LDL Cholesterol Direct 113 (0-129) mg/dL HDL Cholesterol 27 L (29-60) mg/dL Lipase (23-300) U/L Free T4 1.07 (0.78-2.19) ng/dL Thyroxine (T4) 6.3 (5.5-11.0) ug/dL TSH 3rd Generation 0.59 (0.46-4.68) mIU/mL Blood Type Blood Type Confirm A POSITIVE Antibody Screen BBK History Checked 11/05/16 11/05/16 11/05/16 Range/Units 18:38 18:35 18:30 WBC 8.4 (4.5-11.0) 10^3/ul RBC 4.02 (3.5-6.1) 10^6/uL Hgb 8.8 L (14.0-18.0) gm/dL Hct 29.1 L (42.0-52.0) % MCV 72.4 L (80.0-105.0) fL MCH 21.9 L (25.0-35.0) pg MCHC 30.2 L (31.0-37.0) g/dl RDW 17.3 H (11.5-14.5) % Plt Count 239 (120.0-450.0) 10^3/uL MPV 9.6 (7.0-11.0) fl Gran % 59.3 (50.0-68.0) % Lymph % (Auto) 30.5 (22.0-35.0) % [place] % (Auto) 6.2 H (1.0-6.0) % Eos % (Auto) 3.6 (1.5-5.0) % Baso % (Auto) 0.4 (0.0-3.0) % Gran # 4.97 (1.4-6.5) Lymph # 2.6 (1.2-3.4) [place] # 0.5 (0.1-0.6) Eos # 0.3 (0.0-0.7) Baso # 0.03 (0.0-2.0) K/mm3 PT 11.2 (9.9-11.8) Seconds INR 1.04 (0.93-1.08) APTT 21.9 L (23.7-30.8) Seconds Sodium 146 (132-148) mmol/L Potassium 3.7 (3.6-5.0) mmol/L Chloride 107 (98-107) mmol/L Carbon Dioxide 27 (21-33) mmol/L Anion Gap 16 (10-20) BUN 19 (7-21) mg/dL Creatinine 0.8 (0.5-1.4) mg/dL Est GFR ( Amer) > 60 Est GFR (Non-Af Amer) > 60 Random Glucose 173 H (70-110) mg/dL Calcium 8.8 (8.4-10.5) mg/dL Magnesium 1.9 (1.7-2.2) mg/dL Iron (45-180) ug/dL TIBC (261-462) ug/dL % Saturation (20-55) % Total Bilirubin 0.4 (0.2-1.3) mg/dL AST 54 (15-59) U/L ALT 15 (7-56) U/L Alkaline Phosphatase 65 (38-133) U/L Lactate Dehydrogenase 302 L (333-699) U/L Total Creatine Kinase 48 (35-230) U/L CK-MB (CK-2) (0.0-3.6) ng/mL CK-MB (CK-2) % (2.5-3.0) % Troponin I < 0.01 ng/mL NT-Pro-B Natriuret Pep 24.1 (0-450) pg/mL Total Protein 7.9 (5.8-8.3) g/dL Albumin 3.9 (3.0-4.8) g/dL Globulin 4.0 gm/dL Albumin/Globulin Ratio 1.0 L (1.1-1.8) Triglycerides (35-160) mg/dL Cholesterol (130-200) mg/dL LDL Cholesterol Direct (0-129) mg/dL HDL Cholesterol (29-60) mg/dL Lipase 71 (23-300) U/L Free T4 (0.78-2.19) ng/dL Thyroxine (T4) (5.5-11.0) ug/dL TSH 3rd Generation (0.46-4.68) mIU/mL Blood Type A POSITIVE Blood Type Confirm Antibody Screen Negative BBK History Checked No verified bt Laboratory Results - last 24 hr 11/05/16 11/05/16 11/05/16 18:30 18:35 18:38 WBC 8.4 RBC 4.02 Hgb 8.8 L Hct 29.1 L MCV 72.4 L MCH 21.9 L MCHC 30.2 L RDW 17.3 H Plt Count 239 MPV 9.6 Gran % 59.3 Lymph % (Auto) 30.5 [place] % (Auto) 6.2 H Eos % (Auto) 3.6 Baso % (Auto) 0.4 Gran # 4.97 Lymph # 2.6 [place] # 0.5 Eos # 0.3 Baso # 0.03 PT 11.2 INR 1.04 APTT 21.9 L Sodium 146 Potassium 3.7 Chloride 107 Carbon Dioxide 27 Anion Gap 16 BUN 19 Creatinine 0.8 Est GFR ( Amer) > 60 Est GFR (Non-Af Amer) > 60 Random Glucose 173 H Calcium 8.8 Magnesium 1.9 Iron TIBC % Saturation Total Bilirubin 0.4 AST 54 ALT 15 Alkaline Phosphatase 65 Lactate Dehydrogenase 302 L Total Creatine Kinase 48 CK-MB (CK-2) CK-MB (CK-2) % Troponin I < 0.01 NT-Pro-B Natriuret Pep 24.1 Total Protein 7.9 Albumin 3.9 Globulin 4.0 Albumin/Globulin Ratio 1.0 L Triglycerides Cholesterol LDL Cholesterol Direct HDL Cholesterol Lipase 71 Free T4 Thyroxine (T4) TSH 3rd Generation Blood Type A POSITIVE Blood Type Confirm Antibody Screen Negative BBK History Checked No verified bt 11/05/16 11/06/16 11/06/16 18:45 02:33 05:30 WBC 12.8 H D 11.4 H RBC 4.41 4.22 Hgb 9.7 L 9.2 L Hct 31.9 L 30.4 L MCV 72.3 L 72.0 L MCH 22.0 L 21.8 L MCHC 30.4 L 30.3 L RDW 17.4 H 17.5 H Plt Count 251 258 MPV 9.7 10.4 Gran % 93.8 H Lymph % (Auto) 3.7 L [place] % (Auto) 2.4 Eos % (Auto) 0.0 L Baso % (Auto) 0.1 Gran # 11.97 H Lymph # 0.5 L [place] # 0.3 Eos # 0.0 Baso # 0.01 PT 11.1 INR 1.03 APTT 23.6 L Sodium 142 142 Potassium 4.7 4.4 Chloride 107 107 Carbon Dioxide 28 27 Anion Gap 12 12 BUN 18 18 Creatinine 0.8 0.7 Est GFR ( Amer) > 60 > 60 Est GFR (Non-Af Amer) > 60 > 60 Random Glucose 159 H 139 H Calcium 8.4 8.2 L Magnesium 1.9 Iron 11 L TIBC 389 % Saturation 3 L Total Bilirubin 0.3 AST 594 H ALT 88 H Alkaline Phosphatase 62 Lactate Dehydrogenase 1888 H Total Creatine Kinase 6320 H CK-MB (CK-2) 400.0 H CK-MB (CK-2) % 6.3 H Troponin I NT-Pro-B Natriuret Pep Total Protein 7.7 Albumin 3.8 Globulin 3.9 Albumin/Globulin Ratio 1.0 L Triglycerides 51 Cholesterol 161 LDL Cholesterol Direct 113 HDL Cholesterol 27 L Lipase Free T4 1.07 Thyroxine (T4) 6.3 TSH 3rd Generation 0.59 Blood Type Blood Type Confirm A POSITIVE Antibody Screen BBK History Checked EKG/Cardiology Studies: Cardiology / EKG Studies 11/05/16 18:22 EKG [ELECTROCARDIOGRAM] Stat Comment: Reason For Exam: CHEST PAIN 11/05/16 19:38 ELECTROCARDIOGRAM Urgent Comment: 12 lead EKG upon arrival in unit Reason For Exam: post ptca 11/05/16 19:45 ELECTROCARDIOGRAM DAILY Comment: Reason For Exam: chest pain 11/06/16 02:22 EKG [ELECTROCARDIOGRAM] Stat Comment: Reason For Exam: new onset 3/10 chest pain goint to back 11/06/16 07:42 EKG [ELECTROCARDIOGRAM] Stat Comment: Reason For Exam: CP 11/06/16 19:45 ELECTROCARDIOGRAM DAILY Comment: Reason For Exam: chest pain Review of Systems - Constitutional Constitutional: absent: Fever, Chills - EENT Eyes: absent: Change in Vision Ears: absent: Dizziness - Cardiovascular Cardiovascular: Chest Pain. absent: Dyspnea - Respiratory Respiratory: absent: Dyspnea, Pain on Inspiration - Gastrointestinal Gastrointestinal: Nausea. absent: Abdominal Pain, Vomiting - Genitourinary Genitourinary: absent: Dysuria - Neurological Neurological: absent: Headaches Critical Care Progress Note - Ventilator Checklist PUD Prophalyxis: Yes DVT Prophylaxis: Yes - Nutrition Nutrition: Nutrition Category Date Time Status Heart Healthy Diet [DIET] Diets 11/06/16 Breakfast Ordered Assessment/Plan - Assessment and Plan (Free Text) Assessment: 61 yo M w h/o chronic anemia and gastritis admitted to ICU with anterolateral STEMI now s/p PCI with DANIELLE to LAD, course complicated by need for repeat cath this morning Plan: Neuro: AAOx3, NAD. Maintain normothermia CV: s/p anterolateral STEMI with DANIELLE to LAD. No need for additional stents on repeat procedure. 2D ECHO LVEF 55% Continue cardiac meds as per cardio - amio, lasix, brilinta, lopressor, lisinopril, ASA, Morphine PRN CP Pulm: Maintain SpO2>90. No active issues. GI: GI ppx Renal: renal function stable. Continue to monitor Endo: No acute issues ID: Afebrile. No leukocytosis. No signs of infection. Will continue to monitor. Heme: Microcytic anemia of iron deficiency. Hb 9.2 today. No signs of bleeding. Continue to monitor. DVT/GI ppx: Protonix, HHD - Date & Time Date: 11/06/16 Time: 13:11 <Lucius Andres - Last Filed: 11/06/16 13:34> CCU Objective - Vital Signs / Intake & Output Vital Signs (Last 4 hours): Vital Signs Pulse BP 11/06/16 09:47 89 115/61 Intake and Output (Last 8hrs): Intake & Output 11/05/16 11/06/16 11/06/16 22:59 06:59 14:59 Intake Total 901 Output Total 350 Balance 551 Weight 160 lb 161 lb 1.6 oz Intake: IV 781 Right Hand 400 Right Antecubital 132 Right External Jugular 249 Oral 120 Output: Urine 350 Urine, Voided 350 Emesis 0 Other: Voiding Method Urinal # Voids Urine, Voided 1 # Bowel Movements 0 - Medications Active Medications: Active Medications Generic Name Dose Route Start Last Admin Trade Name Freq PRN Reason Stop Dose Admin Acetaminophen 650 mg 11/05/16 19:40 Tylenol 325mg Tab PO Q4H PRN Pain, Mild (1-3) Amiodarone HCl 400 mg 11/06/16 12:30 Cordarone PO BID [facility] Aspirin 81 mg 11/06/16 10:00 11/06/16 09:46 Ecotrin PO 81 mg DAILY RADHA Administration Atorvastatin Calcium 40 mg 11/06/16 17:00 Lipitor PO DIN RADHA Furosemide 40 mg 11/06/16 22:00 Lasix IVP Q12 RADHA Lisinopril 2.5 mg 11/06/16 10:00 11/06/16 09:47 Zestril PO 2.5 mg DAILY RAHDA Administration Metoprolol Tartrate 25 mg 11/06/16 10:00 11/06/16 09:47 Lopressor PO 25 mg BID RADHA Administration Morphine Sulfate 2 mg 11/06/16 07:14 11/06/16 10:13 Morphine IVP 2 mg Q6H PRN Administration Pain, moderate (4-7) Ondansetron HCl 4 mg 11/06/16 08:09 Zofran Inj IVP Q4H PRN Nausea/Vomiting Pantoprazole Sodium 40 mg 11/06/16 10:00 11/06/16 09:47 Protonix Inj IVP 40 mg DAILY RADHA Administration Ticagrelor 90 mg 11/06/16 10:00 11/06/16 09:46 Brilinta PO 90 mg BID RADHA Administration Zolpidem Tartrate 5 mg 11/05/16 19:40 Ambien PO HS PRN Insomnia - Patient Studies Lab Studies: Lab Studies 11/06/16 11/06/16 11/06/16 Range/Units 11:20 08:00 05:30 WBC 11.4 H (4.5-11.0) 10^3/ul RBC 4.22 (3.5-6.1) 10^6/uL Hgb 9.2 L (14.0-18.0) gm/dL Hct 30.4 L (42.0-52.0) % MCV 72.0 L (80.0-105.0) fL MCH 21.8 L (25.0-35.0) pg MCHC 30.3 L (31.0-37.0) g/dl RDW 17.5 H (11.5-14.5) % Plt Count 258 (120.0-450.0) 10^3/uL MPV 10.4 (7.0-11.0) fl Gran % (50.0-68.0) % Lymph % (Auto) (22.0-35.0) % [place] % (Auto) (1.0-6.0) % Eos % (Auto) (1.5-5.0) % Baso % (Auto) (0.0-3.0) % Gran # (1.4-6.5) Lymph # (1.2-3.4) [place] # (0.1-0.6) Eos # (0.0-0.7) Baso # (0.0-2.0) K/mm3 Neutrophils % (Manual) 90 H (50.0-70.0) % Band Neutrophils % 2 (0-2) % Lymphocytes % (Manual) 6 L (22.0-35.0) % Monocytes % (Manual) 2 (1.0-6.0) % Platelet Evaluation Normal (NORMAL) Polychromasia Slight Hypochromasia 1+ Poikilocytosis (manual Slight Anisocytosis (manual) 2+ Microcytosis (manual) 2+ Ovalocytes Slight Rouleaux Slight PT (9.9-11.8) Seconds INR (0.93-1.08) APTT (23.7-30.8) Seconds Sodium 142 (132-148) mmol/L Potassium 4.4 (3.6-5.0) mmol/L Chloride 107 (98-107) mmol/L Carbon Dioxide 27 (21-33) mmol/L Anion Gap 12 (10-20) BUN 18 (7-21) mg/dL Creatinine 0.7 (0.5-1.4) mg/dL Est GFR ( Amer) > 60 Est GFR (Non-Af Amer) > 60 Random Glucose 139 H (70-110) mg/dL Calcium 8.2 L (8.4-10.5) mg/dL Magnesium (1.7-2.2) mg/dL Iron 11 L (45-180) ug/dL TIBC 389 (261-462) ug/dL % Saturation 3 L (20-55) % Transferrin 304.89 (206-381) mg/dL Total Bilirubin (0.2-1.3) mg/dL AST (15-59) U/L ALT (7-56) U/L Alkaline Phosphatase (38-133) U/L Lactate Dehydrogenase 2193 H (333-699) U/L Total Creatine Kinase 6036 H (35-230) U/L CK-MB (CK-2) 451.0 H (0.0-3.6) ng/mL CK-MB (CK-2) % 7.5 H (2.5-3.0) % Troponin I 181.00 H* D ng/mL Total Protein (5.8-8.3) g/dL Albumin (3.0-4.8) g/dL Globulin gm/dL Albumin/Globulin Ratio (1.1-1.8) Triglycerides 51 (35-160) mg/dL Cholesterol 161 (130-200) mg/dL LDL Cholesterol Direct 113 (0-129) mg/dL HDL Cholesterol 27 L (29-60) mg/dL Free T4 1.07 (0.78-2.19) ng/dL Thyroxine (T4) 6.3 (5.5-11.0) ug/dL TSH 3rd Generation 0.59 (0.46-4.68) mIU/mL Urine Color Yellow (YELLOW) Urine Appearance Clear (CLEAR) Urine pH 6.0 (4.7-8.0) Ur Specific [place] >= 1.030 (1.005-1.035) Urine Protein Negative (<30 mg/dL) mg/dL Urine Glucose (UA) 500 H (NEGATIVE) mg/dL Urine Ketones Negative (NEGATIVE) mg/dL Urine Blood Negative (NEGATIVE) Urine Nitrate Negative (NEGATIVE) Urine Bilirubin Negative (NEGATIVE) Urine Urobilinogen 0.2 (<1 E.U./dL) E.U./dL Ur Leukocyte Esterase Negative (NEGATIVE) Kell/uL 11/06/16 Range/Units 02:33 WBC 12.8 H D (4.5-11.0) 10^3/ul RBC 4.41 (3.5-6.1) 10^6/uL Hgb 9.7 L (14.0-18.0) gm/dL Hct 31.9 L (42.0-52.0) % MCV 72.3 L (80.0-105.0) fL MCH 22.0 L (25.0-35.0) pg MCHC 30.4 L (31.0-37.0) g/dl RDW 17.4 H (11.5-14.5) % Plt Count 251 (120.0-450.0) 10^3/uL MPV 9.7 (7.0-11.0) fl Gran % 93.8 H (50.0-68.0) % Lymph % (Auto) 3.7 L (22.0-35.0) % [place] % (Auto) 2.4 (1.0-6.0) % Eos % (Auto) 0.0 L (1.5-5.0) % Baso % (Auto) 0.1 (0.0-3.0) % Gran # 11.97 H (1.4-6.5) Lymph # 0.5 L (1.2-3.4) [place] # 0.3 (0.1-0.6) Eos # 0.0 (0.0-0.7) Baso # 0.01 (0.0-2.0) K/mm3 Neutrophils % (Manual) (50.0-70.0) % Band Neutrophils % (0-2) % Lymphocytes % (Manual) (22.0-35.0) % Monocytes % (Manual) (1.0-6.0) % Platelet Evaluation (NORMAL) Polychromasia Hypochromasia Poikilocytosis (manual Anisocytosis (manual) Microcytosis (manual) Ovalocytes Rouleaux PT 11.1 (9.9-11.8) Seconds INR 1.03 (0.93-1.08) APTT 23.6 L (23.7-30.8) Seconds Sodium 142 (132-148) mmol/L Potassium 4.7 (3.6-5.0) mmol/L Chloride 107 (98-107) mmol/L Carbon Dioxide 28 (21-33) mmol/L Anion Gap 12 (10-20) BUN 18 (7-21) mg/dL Creatinine 0.8 (0.5-1.4) mg/dL Est GFR ( Amer) > 60 Est GFR (Non-Af Amer) > 60 Random Glucose 159 H (70-110) mg/dL Calcium 8.4 (8.4-10.5) mg/dL Magnesium 1.9 (1.7-2.2) mg/dL Iron (45-180) ug/dL TIBC (261-462) ug/dL % Saturation (20-55) % Transferrin (206-381) mg/dL Total Bilirubin 0.3 (0.2-1.3) mg/dL AST 594 H (15-59) U/L ALT 88 H (7-56) U/L Alkaline Phosphatase 62 (38-133) U/L Lactate Dehydrogenase 1888 H (333-699) U/L Total Creatine Kinase 6320 H (35-230) U/L CK-MB (CK-2) 400.0 H (0.0-3.6) ng/mL CK-MB (CK-2) % 6.3 H (2.5-3.0) % Troponin I ng/mL Total Protein 7.7 (5.8-8.3) g/dL Albumin 3.8 (3.0-4.8) g/dL Globulin 3.9 gm/dL Albumin/Globulin Ratio 1.0 L (1.1-1.8) Triglycerides (35-160) mg/dL Cholesterol (130-200) mg/dL LDL Cholesterol Direct (0-129) mg/dL HDL Cholesterol (29-60) mg/dL Free T4 (0.78-2.19) ng/dL Thyroxine (T4) (5.5-11.0) ug/dL TSH 3rd Generation (0.46-4.68) mIU/mL Urine Color (YELLOW) Urine Appearance (CLEAR) Urine pH (4.7-8.0) Ur Specific [place] (1.005-1.035) Urine Protein (<30 mg/dL) mg/dL Urine Glucose (UA) (NEGATIVE) mg/dL Urine Ketones (NEGATIVE) mg/dL Urine Blood (NEGATIVE) Urine Nitrate (NEGATIVE) Urine Bilirubin (NEGATIVE) Urine Urobilinogen (<1 E.U./dL) E.U./dL Ur Leukocyte Esterase (NEGATIVE) Kell/uL Laboratory Results - last 24 hr 11/06/16 11/06/16 11/06/16 02:33 05:30 08:00 WBC 12.8 H D 11.4 H RBC 4.41 4.22 Hgb 9.7 L 9.2 L Hct 31.9 L 30.4 L MCV 72.3 L 72.0 L MCH 22.0 L 21.8 L MCHC 30.4 L 30.3 L RDW 17.4 H 17.5 H Plt Count 251 258 MPV 9.7 10.4 Gran % 93.8 H Lymph % (Auto) 3.7 L [place] % (Auto) 2.4 Eos % (Auto) 0.0 L Baso % (Auto) 0.1 Gran # 11.97 H Lymph # 0.5 L [place] # 0.3 Eos # 0.0 Baso # 0.01 Neutrophils % (Manual) 90 H Band Neutrophils % 2 Lymphocytes % (Manual) 6 L Monocytes % (Manual) 2 Platelet Evaluation Normal Polychromasia Slight Hypochromasia 1+ Poikilocytosis (manual Slight Anisocytosis (manual) 2+ Microcytosis (manual) 2+ Ovalocytes Slight Rouleaux Slight PT 11.1 INR 1.03 APTT 23.6 L Sodium 142 142 Potassium 4.7 4.4 Chloride 107 107 Carbon Dioxide 28 27 Anion Gap 12 12 BUN 18 18 Creatinine 0.8 0.7 Est GFR ( Amer) > 60 > 60 Est GFR (Non-Af Amer) > 60 > 60 Random Glucose 159 H 139 H Calcium 8.4 8.2 L Magnesium 1.9 Iron 11 L TIBC 389 % Saturation 3 L Transferrin 304.89 Total Bilirubin 0.3 AST 594 H ALT 88 H Alkaline Phosphatase 62 Lactate Dehydrogenase 1888 H 2193 H Total Creatine Kinase 6320 H 6036 H CK-MB (CK-2) 400.0 H 451.0 H CK-MB (CK-2) % 6.3 H 7.5 H Troponin I 181.00 H* D Total Protein 7.7 Albumin 3.8 Globulin 3.9 Albumin/Globulin Ratio 1.0 L Triglycerides 51 Cholesterol 161 LDL Cholesterol Direct 113 HDL Cholesterol 27 L Free T4 1.07 Thyroxine (T4) 6.3 TSH 3rd Generation 0.59 Urine Color Urine Appearance Urine pH Ur Specific [place] Urine Protein Urine Glucose (UA) Urine Ketones Urine Blood Urine Nitrate Urine Bilirubin Urine Urobilinogen Ur Leukocyte Esterase 11/06/16 11:20 WBC RBC Hgb Hct MCV MCH MCHC RDW Plt Count MPV Gran % Lymph % (Auto) [place] % (Auto) Eos % (Auto) Baso % (Auto) Gran # Lymph # [place] # Eos # Baso # Neutrophils % (Manual) Band Neutrophils % Lymphocytes % (Manual) Monocytes % (Manual) Platelet Evaluation Polychromasia Hypochromasia Poikilocytosis (manual Anisocytosis (manual) Microcytosis (manual) Ovalocytes Rouleaux PT INR APTT Sodium Potassium Chloride Carbon Dioxide Anion Gap BUN Creatinine Est GFR ( Amer) Est GFR (Non-Af Amer) Random Glucose Calcium Magnesium Iron TIBC % Saturation Transferrin Total Bilirubin AST ALT Alkaline Phosphatase Lactate Dehydrogenase Total Creatine Kinase CK-MB (CK-2) CK-MB (CK-2) % Troponin I Total Protein Albumin Globulin Albumin/Globulin Ratio Triglycerides Cholesterol LDL Cholesterol Direct HDL Cholesterol Free T4 Thyroxine (T4) TSH 3rd Generation Urine Color Yellow Urine Appearance Clear Urine pH 6.0 Ur Specific [place] >= 1.030 Urine Protein Negative Urine Glucose (UA) 500 H Urine Ketones Negative Urine Blood Negative Urine Nitrate Negative Urine Bilirubin Negative Urine Urobilinogen 0.2 Ur Leukocyte Esterase Negative EKG/Cardiology Studies: Cardiology / EKG Studies 11/06/16 02:22 EKG [ELECTROCARDIOGRAM] Stat Comment: Reason For Exam: new onset 3/10 chest pain goint to back 11/06/16 07:42 EKG [ELECTROCARDIOGRAM] Stat Comment: Reason For Exam: CP Attending/Attestation - Attestation I have personally seen and examined this patient.: Yes I have fully participated in the care of the patient.: Yes I have reviewed all pertinent clinical information: Yes Notes (Text): 11/06/16 13:33 The patient was seen and examined at the bedside. Patient care was discussed with resident Medical records, lab studies, and imaging were reviewed and management issues were discussed and formulated. Last 24H events reviewed. Agree with above treatment plans as outlined in 's note Continue management as per cardiology team
[2016-11-06 08:08] LABS: ANISOCYTOSIS 2+; BAND 2 % (0-2); HYPOCHROMIA 1+; MICROCYTOSIS 2+; NEUTROPHIL 90 % (50.0-70.0); PLATELET ESTIMATE NORMAL (NORMAL); POIKILOCYTOSIS SLIGHT; POLYCHROMASIA SLIGHT
[2016-11-06 08:09] LABS: OVALOCYTES SLIGHT
--- NOTE | 2016-11-06 08:37 | PN ---
DATE: 11/06/2016 The patient complains of atypical chest pain which is nondescript. PHYSICAL EXAMINATION: VITAL SIGNS: Blood pressure 123/83, heart rates in the 60s. NECK: Negative JVD. LUNGS: Without rales. HEART: Reveals S1, S2. EXTREMITIES: Without edema. EKG shows evolving anterior wall IN. LABORATORY DATA: Hemoglobin is 9.2. Chemistries: The BUN and creatinine are unremarkable. IMPRESSION: 1. Status post acute anterior wall myocardial infarction. 2. Status post successful percutaneous transluminal coronary angioplasty and stent of an occluded le ft anterior descending. 3. Ventricular fibrillation. 4. Recurrent chest pain post myocardial infarction. PLAN: Given these findings, will try nitroglycerin to see if we can relieve pain. If necessary, mor phine will be used. Dave Osullivan MD cc: [id number] TT: 11/06/2016 08:36:27 Confirmation # [id number] Dictation # [id number] mn
--- NOTE | 2016-11-06 10:00 | RAD ---
HISTORY: chest pain COMPARISON: No prior. FINDINGS: LUNGS: No active pulmonary disease. PLEURA: No significant pleural effusion identified, no pneumothorax apparent. CARDIOVASCULAR: Normal. OSSEOUS STRUCTURES: No significant abnormalities. VISUALIZED UPPER ABDOMEN: Normal. OTHER FINDINGS: None. IMPRESSION: No active disease.
[2016-11-06] MEDS ORDERED: Lidocaine 2% Inj (20ml) ONE (11:29)
[2016-11-06] MEDS ORDERED: Iodixanol 320 mg/ml 150 ml Bottle IV ONE (11:30)
[2016-11-06] MEDS ORDERED: Iohexol 350mgl/ml 50 ML ONE (11:30)
[2016-11-06 11:42] LABS: URINE BILIRUBIN NEGATIVE (NEGATIVE); URINE BLOOD NEGATIVE (NEGATIVE); URINE GLUCOSE (UA) 500 mg/dL (NEGATIVE); URINE KETONE NEGATIVE (NEGATIVE); URINE LEUKOCYTE ESTERASE NEGATIVE Leu/uL (NEGATIVE); URINE PROTEIN NEGATIVE mg/dL (<30 mg/dL); URINE UROBILINOGEN 0.2 E.U./dL (<1 E.U./dL)
[2016-11-06 11:44] LABS: URINE APPEARANCE CLEAR (CLEAR); URINE COLOR YELLOW (YELLOW)
[2016-11-06] MEDS ORDERED: Nitroglycerin 2% Ointment Foilpak UD TOP SCH (12:00)
[2016-11-06] MEDS ORDERED: Midazolam 2 MG/2 ML VIAL ONE (12:01)
[2016-11-06 12:17] LABS: TRANSFERRIN 304.89 mg/dL (206-381)
--- NOTE | 2016-11-06 13:43 | CARDCATH ---
PROCEDURE DATE: 11/06/2016 HISTORY: The patient is status post emergency PTCA and stent of an occluded LAD that resulted in an acute anterior wall myocardial infarction yesterday. This morning, the patient developed chest pain again. This was unrelieved with sublingual nitroglycerin. His symptoms were increasing in nature. Because of his ongoing symptoms, the patient was brought back for cardiac catheterization. PROCEDURE: Left heart catheterization with coronary angiography. The left femoral artery was cannulated with a 6-Latvian sheath. There were no complications. The findings on catheterization revealed a left main artery that was unremarkable. The LAD at the previously occluded site was widely patent with a patent stent in the proximal LAD and SENDY 3 flow. The circumflex artery and obtuse marginal branches were unchanged. LVEDP was measured with a pigtail catheter in the left ventricle. His LVEDP was 20 mmHg. Manual compression was used to close the femoral artery site. The patient tolerated the procedure well. In summary, the procedure revealed a widely patent LAD with a proximal LAD stent at the previous [facility] PTCA site during his acute anterior wall myocardial infarction yesterday. His LVEDP is high consistent with his symptoms of CHF that resulted in shortness of breath. Given these findings, the patient's chest pain does not represent re-narrowing or acute thrombosis of his stent ____. The LAD has SENDY 3 flow. We will obtain an echocardiogram to rule out a pericarditis and effusion. We will continue IV Lasix. Dave Osullivan MD cc: [phone] TT: 11/06/2016 13:42:21 sn
--- NOTE | 2016-11-06 16:31 | CARD ---
APPROVED REPORT EKG Measurement Heart [id number] [place] 166P45 [id number] <Conclusion> Normal sinus rhythm Left axis deviation, LAHB IRBBB Evolving ASMI with QS V 1 - 3 now STTW changes
--- NOTE | 2016-11-06 16:40 | CARD ---
APPROVED REPORT EKG Measurement Heart [id number] [place] [id number] [id number] <Conclusion> Normal sinus rhythm Left axis deviation RBBB Anteroseptal infarct with QS V 1 - 4 STTW changes
[2016-11-06 18:04] LABS: FOLATE 9.8 ng/mL
[2016-11-06] MEDS ORDERED: Iron Sucrose 100 mg/5 ml Inj (RENAL) IVP ONE (19:28)
[2016-11-06] MEDS ORDERED: Docusate-Senna 50 mg-8.6 mg Tab PO STA (21:24)
--- NOTE | 2016-11-07 02:09 | HP ---
HISTORY OF PRESENT ILLNESS: The patient is a 61-year-old known to me from office practice. The chasidy ent usually comes to me for cold, cough, and sore throat. I usually see him once a year; however, he was noted to have anemia. He had blood transfusion few years ago. He was worked up by other physic neil for endoscopy and colonoscopy, and was found to be unremarkable. He was referred to [facility] and was advised to take iron supplementation, but he has not been very compliant with that; however, on 11/05 after snowstorm, he tried to shovel the snow, but after 5 minutes of his exertion he starte d to have chest pain. The patient state that he used to have chest pain, especially when he goes uph ill, but this chest pain was more intense, so he called his who called ambulance and he was brou ght to Emergency Room. He was found to have ST elevation TX, so he was taken to [facility], and he was found to have acute anterior wall TX, so he ended up having angioplasty of his LAD. He was fo und to have marked anterior and apical hypokinesia with estimated ejection fraction of 30%. His righ t coronary was dominant, RCA revealed diffuse atherosclerosis without critical lesions. PAST MEDICAL HISTORY: Significant for chronic anemia and history of hemorrhoid, once in a while he b calin. ALLERGIES: He is not allergic to any medications. MEDICATIONS AT HOME: He is not on any medication at home. SOCIAL HISTORY: Denies smoking, drinking, or alcohol use, socially drinks once in a while. REVIEW OF SYSTEMS: The patient was seen in [facility], complained of shortness of breath. PHYSICAL EXAMINATION: GENERAL: He is awake and alert, communicative, complaining of shortness of breath when he lies down. VITAL SIGNS: He is afebrile, pulse 75, respirations 25, blood pressure 96/58. LUNGS: Bilateral good air flow. He has bilateral soft crackle. HEART: S1, S2 audible. ABDOMEN: Soft, nontender, no rebound, no guarding. NEUROLOGIC: The patient is awake and alert, communicative. LABORATORY DATA: His WBC today is 11.4, hemoglobin 9.2, hematocrit 30.4, platelet of 258. PT 11.1, INR 1.03, PTT 23.6. Chemistry: Sodium 142, potassium 4.4, chloride 107, CO2 of 27, BUN 18, creatini ne 0.7, blood sugar is 139, calcium 8.2,iron is 11, saturation is 3. Troponin is 103. ASSESSMENT: 1. Acute anterior wall myocardial infarction, status post left anterior descending angioplasty. 2. Chronic anemia. 3. B12 deficiency. 4. Congestive heart failure with ejection fraction of 30%. 5. Cardiomyopathy. PLAN: Currently, the patient is on aspirin. He is getting Brilinta. He is on amiodarone. He is on Lasix and metoprolol. He is getting Protonix and lisinopril. I will add for B12 intramuscular one injection and gave him one iron infusion. Currently, he is in ICU. Followup his electrolytes and CB C in a.m. Rand Pizano MD cc: [phone] TT: 11/07/2016 02:08:56 in
[2016-11-07 05:27] LABS: EOS % 0.1 % (1.5-5.0); GRAN # 11.87 (1.4-6.5); HEMATOCRIT 30.1 % (42.0-52.0); LYMPH # 0.7 (1.2-3.4); LYMPH % 5.3 % (22.0-35.0); MEAN CELL VOLUME 71.3 fL (80.0-105.0); MEAN CORPUSCULAR HGB CONC 30.9 g/dl (31.0-37.0); MEAN PLATELET VOLUME 10.3 fl (7.0-11.0); MONO % 7.6 % (1.0-6.0); PLATELET COUNT 226 10^3/uL (120.0-450.0); RED CELL DISTRIBUTION WIDTH 17.4 % (11.5-14.5); WHITE BLOOD COUNT 13.6 10^3/ul (4.5-11.0)
[2016-11-07 05:39] LABS: ALKALINE PHOSPHATASE 59 U/L (38-133); ALT/SGPT 79 U/L (7-56); AST/SGOT 342 U/L (15-59); BILIRUBIN,TOTAL 0.9 mg/dL (0.2-1.3); BLOOD UREA NITROGEN 18 mg/dL (7-21); CALCIUM 8.6 mg/dL (8.4-10.5); CARBON DIOXIDE 34 mmol/L (21-33); CHLORIDE 100 mmol/L (98-107); GFR AFRICAN-AMERICAN > 60; GLUCOSE,RANDOM 114 mg/dL (70-110); MAGNESIUM 1.9 mg/dL (1.7-2.2); POTASSIUM 3.4 mmol/L (3.6-5.0); SODIUM 141 mmol/L (132-148); TOTAL PROTEIN 7.7 g/dL (5.8-8.3)
[2016-11-07 06:13] LABS: ADD MANUAL DIFF? NO
[2016-11-07] MEDS ORDERED: Potassium Chloride 20 mEq ER Tab PO STA (07:41)
[2016-11-07] MEDS: POLYETHYLENE GLYCOL 3350 17 GM/Dose PACKET PO SCH (09:28)
--- NOTE | 2016-11-07 09:58 | CARD ---
APPROVED REPORT EKG Measurement Heart [id number] [place] [id number] <Conclusion> Normal sinus rhythm Incomplete right bundle branch block Anteroseptal infarct, recent T wave inversions Prolonged QTc
--- NOTE | 2016-11-07 11:08 | CP.CCUPN ---
<Kaley Ivory - Last Filed: 11/07/16 12:35> CCU Subjective - Physician Review Events Since Last Encounter (Free Text): 11/07/16 12:35 Patient seen and examined bedside. No acute events overnight. Patient denies CP , SOB, abd pain, n/v/d/c, fevers, chills. Patient tolerating PO diet. Troponins continue to improve. Patient had repeat catheterization yesterday due to persistent CP but did not require any additional stenting. Critical Care Time Spent (in minutes): 30 CCU Objective - Vital Signs / Intake & Output Vital Signs (Last 4 hours): Vital Signs Pulse BP 11/07/16 09:29 101/61 11/07/16 07:47 80 Intake and Output (Last 8hrs): Intake & Output 11/06/16 11/07/16 11/07/16 22:59 06:59 14:59 Intake Total 949 220 Output Total 875 900 Balance 74 -680 Weight 145 lb 14.4 oz Intake: IV 449 100 Right External Jugular 249 Left Hand 200 100 Oral 500 120 Output: Urine 875 900 Urine, Voided 875 900 Emesis 0 Other: Voiding Method Urinal Urinal # Voids Urine, Voided 3 2 # Bowel Movements 2 - Physical Exam Head: Positive for: Atraumatic, Normocephalic Pupils: Positive for: PERRL Extroacular Muscles: Positive for: EOMI Conjunctiva: Positive for: Normal Mouth: Positive for: Moist Mucous Membranes Pharnyx: Positive for: Normal. Negative for: ERYTHEMA Neck: Positive for: Normal Range of Motion Respiratory/Chest: Positive for: Clear to Auscultation, Good Air Exchange. Negative for: Respiratory Distress, Accessory Muscle Use Cardiovascular: Positive for: Regular Rate and Rhythm, Normal S1, S2. Negative for: Murmurs Abdomen: Positive for: Normal Bowel Sounds. Negative for: Tenderness, Distention, Peritoneal Signs Back: Positive for: Normal Inspection Upper Extremity: Positive for: Normal Inspection. Negative for: Cyanosis, Edema Lower Extremity: Positive for: Normal Inspection. Negative for: Edema Neurological: Positive for: GCS=15, CN II-XII Intact, Speech Normal Skin: Positive for: Diaphoretic, Pale. Negative for: Rashes Psychiatric: Positive for: Alert, Oriented x 3, Normal Insight, Normal Concentration - Medications Active Medications: Active Medications Generic Name Dose Route Start Last Admin Trade Name Freq PRN Reason Stop Dose Admin Acetaminophen 650 mg 11/05/16 19:40 Tylenol 325mg Tab PO Q4H PRN Pain, Mild (1-3) Amiodarone HCl 400 mg 11/06/16 12:30 11/07/16 09:29 Cordarone PO 400 mg BID RADHA Administration Aspirin 81 mg 11/06/16 10:00 11/07/16 09:29 Ecotrin PO 81 mg DAILY RADHA Administration Atorvastatin Calcium 40 mg 11/06/16 17:00 11/06/16 18:46 Lipitor PO 40 mg DIN RADHA Administration Docusate Sodium 100 mg 11/07/16 10:00 11/07/16 09:43 Colace PO 100 mg DAILY RADHA Administration Furosemide 40 mg 11/06/16 22:00 11/07/16 09:29 Lasix IVP 40 mg Q12 RADHA Administration Lisinopril 2.5 mg 11/06/16 10:00 11/07/16 09:29 Zestril PO 2.5 mg DAILY RADHA Administration Metoprolol Tartrate 25 mg 11/06/16 10:00 11/07/16 09:29 Lopressor PO 25 mg BID RADHA Administration Morphine Sulfate 2 mg 11/06/16 07:14 11/06/16 10:13 Morphine IVP 2 mg Q6H PRN Administration Pain, moderate (4-7) Ondansetron HCl 4 mg 11/06/16 08:09 Zofran Inj IVP Q4H PRN Nausea/Vomiting Pantoprazole Sodium 40 mg 11/06/16 10:00 11/07/16 10:54 Protonix Inj IVP 40 mg DAILY RADHA Administration Polyethylene Glycol 17 gm 11/07/16 10:00 11/07/16 09:28 Miralax PO 17 gm DAILY RADHA Administration Ticagrelor 90 mg 11/06/16 10:00 11/07/16 09:29 Brilinta PO 90 mg BID RADHA Administration Zolpidem Tartrate 5 mg 11/05/16 19:40 Ambien PO HS PRN Insomnia - Patient Studies Lab Studies: Lab Studies 11/07/16 11/06/16 11/06/16 Range/Units 05:22 16:00 11:20 WBC 13.6 H (4.5-11.0) 10^3/ul RBC 4.22 (3.5-6.1) 10^6/uL Hgb 9.3 L (14.0-18.0) gm/dL Hct 30.1 L (42.0-52.0) % MCV 71.3 L (80.0-105.0) fL MCH 22.0 L (25.0-35.0) pg MCHC 30.9 L (31.0-37.0) g/dl RDW 17.4 H (11.5-14.5) % Plt Count 226 (120.0-450.0) 10^3/uL MPV 10.3 (7.0-11.0) fl Gran % 87.0 H (50.0-68.0) % Lymph % (Auto) 5.3 L (22.0-35.0) % [place] % (Auto) 7.6 H (1.0-6.0) % Eos % (Auto) 0.1 L (1.5-5.0) % Baso % (Auto) 0.0 (0.0-3.0) % Gran # 11.87 H (1.4-6.5) Lymph # 0.7 L (1.2-3.4) [place] # 1.0 H (0.1-0.6) Eos # 0.0 (0.0-0.7) Baso # 0.00 (0.0-2.0) K/mm3 Sodium 141 (132-148) mmol/L Potassium 3.4 L (3.6-5.0) mmol/L Chloride 100 (98-107) mmol/L Carbon Dioxide 34 H (21-33) mmol/L Anion Gap 10 (10-20) BUN 18 (7-21) mg/dL Creatinine 0.9 (0.5-1.4) mg/dL Est GFR ( Amer) > 60 Est GFR (Non-Af Amer) > 60 Random Glucose 114 H (70-110) mg/dL Hemoglobin A1c (4.2-6.5) % Calcium 8.6 (8.4-10.5) mg/dL Phosphorus 3.0 (2.5-4.5) mg/dL Magnesium 1.9 (1.7-2.2) mg/dL Transferrin (206-381) mg/dL Total Bilirubin 0.9 (0.2-1.3) mg/dL AST 342 H (15-59) U/L ALT 79 H (7-56) U/L Alkaline Phosphatase 59 (38-133) U/L Lactate Dehydrogenase 1978 H (333-699) U/L Total Creatine Kinase 4479 H (35-230) U/L CK-MB (CK-2) 252.0 H (0.0-3.6) ng/mL CK-MB (CK-2) % 5.6 H (2.5-3.0) % Troponin I 103.00 H* D ng/mL Total Protein 7.7 (5.8-8.3) g/dL Albumin 3.9 (3.0-4.8) g/dL Globulin 3.9 gm/dL Albumin/Globulin Ratio 1.0 L (1.1-1.8) Vitamin B12 (239-931) pg/mL Folate ng/mL Urine Color Yellow (YELLOW) Urine Appearance Clear (CLEAR) Urine pH 6.0 (4.7-8.0) Ur Specific [place] >= 1.030 (1.005-1.035) Urine Protein Negative (<30 mg/dL) mg/dL Urine Glucose (UA) 500 H (NEGATIVE) mg/dL Urine Ketones Negative (NEGATIVE) mg/dL Urine Blood Negative (NEGATIVE) Urine Nitrate Negative (NEGATIVE) Urine Bilirubin Negative (NEGATIVE) Urine Urobilinogen 0.2 (<1 E.U./dL) E.U./dL Ur Leukocyte Esterase Negative (NEGATIVE) Kell/uL 11/06/16 11/06/16 Range/Units 05:30 02:33 WBC (4.5-11.0) 10^3/ul RBC (3.5-6.1) 10^6/uL Hgb (14.0-18.0) gm/dL Hct (42.0-52.0) % MCV (80.0-105.0) fL MCH (25.0-35.0) pg MCHC (31.0-37.0) g/dl RDW (11.5-14.5) % Plt Count (120.0-450.0) 10^3/uL MPV (7.0-11.0) fl Gran % (50.0-68.0) % Lymph % (Auto) (22.0-35.0) % [place] % (Auto) (1.0-6.0) % Eos % (Auto) (1.5-5.0) % Baso % (Auto) (0.0-3.0) % Gran # (1.4-6.5) Lymph # (1.2-3.4) [place] # (0.1-0.6) Eos # (0.0-0.7) Baso # (0.0-2.0) K/mm3 Sodium (132-148) mmol/L Potassium (3.6-5.0) mmol/L Chloride (98-107) mmol/L Carbon Dioxide (21-33) mmol/L Anion Gap (10-20) BUN (7-21) mg/dL Creatinine (0.5-1.4) mg/dL Est GFR ( Amer) Est GFR (Non-Af Amer) Random Glucose (70-110) mg/dL Hemoglobin A1c 5.9 (4.2-6.5) % Calcium (8.4-10.5) mg/dL Phosphorus (2.5-4.5) mg/dL Magnesium (1.7-2.2) mg/dL Transferrin 304.89 (206-381) mg/dL Total Bilirubin (0.2-1.3) mg/dL AST (15-59) U/L ALT (7-56) U/L Alkaline Phosphatase (38-133) U/L Lactate Dehydrogenase (333-699) U/L Total Creatine Kinase (35-230) U/L CK-MB (CK-2) (0.0-3.6) ng/mL CK-MB (CK-2) % (2.5-3.0) % Troponin I 228.00 H* D ng/mL Total Protein (5.8-8.3) g/dL Albumin (3.0-4.8) g/dL Globulin gm/dL Albumin/Globulin Ratio (1.1-1.8) Vitamin B12 < 159 L (239-931) pg/mL Folate 9.8 ng/mL Urine Color (YELLOW) Urine Appearance (CLEAR) Urine pH (4.7-8.0) Ur Specific [place] (1.005-1.035) Urine Protein (<30 mg/dL) mg/dL Urine Glucose (UA) (NEGATIVE) mg/dL Urine Ketones (NEGATIVE) mg/dL Urine Blood (NEGATIVE) Urine Nitrate (NEGATIVE) Urine Bilirubin (NEGATIVE) Urine Urobilinogen (<1 E.U./dL) E.U./dL Ur Leukocyte Esterase (NEGATIVE) Kell/uL Laboratory Results - last 24 hr 11/06/16 11/06/16 11/06/16 02:33 05:30 11:20 WBC RBC Hgb Hct MCV MCH MCHC RDW Plt Count MPV Gran % Lymph % (Auto) [place] % (Auto) Eos % (Auto) Baso % (Auto) Gran # Lymph # [place] # Eos # Baso # Sodium Potassium Chloride Carbon Dioxide Anion Gap BUN Creatinine Est GFR ( Amer) Est GFR (Non-Af Amer) Random Glucose Hemoglobin A1c 5.9 Calcium Phosphorus Magnesium Transferrin 304.89 Total Bilirubin AST ALT Alkaline Phosphatase Lactate Dehydrogenase Total Creatine Kinase CK-MB (CK-2) CK-MB (CK-2) % Troponin I 228.00 H* D Total Protein Albumin Globulin Albumin/Globulin Ratio Vitamin B12 < 159 L Folate 9.8 Urine Color Yellow Urine Appearance Clear Urine pH 6.0 Ur Specific [place] >= 1.030 Urine Protein Negative Urine Glucose (UA) 500 H Urine Ketones Negative Urine Blood Negative Urine Nitrate Negative Urine Bilirubin Negative Urine Urobilinogen 0.2 Ur Leukocyte Esterase Negative 11/06/16 11/07/16 16:00 05:22 WBC 13.6 H RBC 4.22 Hgb 9.3 L Hct 30.1 L MCV 71.3 L MCH 22.0 L MCHC 30.9 L RDW 17.4 H Plt Count 226 MPV 10.3 Gran % 87.0 H Lymph % (Auto) 5.3 L [place] % (Auto) 7.6 H Eos % (Auto) 0.1 L Baso % (Auto) 0.0 Gran # 11.87 H Lymph # 0.7 L [place] # 1.0 H Eos # 0.0 Baso # 0.00 Sodium 141 Potassium 3.4 L Chloride 100 Carbon Dioxide 34 H Anion Gap 10 BUN 18 Creatinine 0.9 Est GFR ( Amer) > 60 Est GFR (Non-Af Amer) > 60 Random Glucose 114 H Hemoglobin A1c Calcium 8.6 Phosphorus 3.0 Magnesium 1.9 Transferrin Total Bilirubin 0.9 AST 342 H ALT 79 H Alkaline Phosphatase 59 Lactate Dehydrogenase 1978 H Total Creatine Kinase 4479 H CK-MB (CK-2) 252.0 H CK-MB (CK-2) % 5.6 H Troponin I 103.00 H* D Total Protein 7.7 Albumin 3.9 Globulin 3.9 Albumin/Globulin Ratio 1.0 L Vitamin B12 Folate Urine Color Urine Appearance Urine pH Ur Specific [place] Urine Protein Urine Glucose (UA) Urine Ketones Urine Blood Urine Nitrate Urine Bilirubin Urine Urobilinogen Ur Leukocyte Esterase Review of Systems - Constitutional Constitutional: absent: Fever, Chills - EENT Eyes: absent: Change in Vision, Diplopia Ears: absent: Dizziness - Cardiovascular Cardiovascular: absent: Chest Pain, Dyspnea, Lightheadedness, Palpitations - Respiratory Respiratory: absent: Cough, Dyspnea, Pain on Inspiration - Gastrointestinal Gastrointestinal: absent: Abdominal Pain, Diarrhea, Nausea, Vomiting - Genitourinary Genitourinary: absent: Difficulty Urinating, Dysuria - Integumentary Integumentary: absent: New Lesions - Neurological Neurological: absent: Focal Weakness, Headaches - Endocrine Endocrine: absent: Palpitations Critical Care Progress Note - Ventilator Checklist PUD Prophalyxis: Yes DVT Prophylaxis: Yes Assessment/Plan - Assessment and Plan (Free Text) Assessment: 61 yo M w h/o chronic anemia and gastritis admitted to ICU with anterolateral STEMI now s/p PCI with DANIELLE to LAD Plan: Neuro: AAOx3, NAD. Maintain normothermia CV: s/p anterolateral STEMI with DANIELLE to LAD. No need for additional stents on repeat procedure. 2D ECHO LVEF 55% Continue cardiac meds as per cardio - amio, lasix, brilinta, lopressor, lisinopril, ASA, Morphine PRN CP Pulm: Maintain SpO2>90. No active issues. GI: GI ppx Transaminitis improving. Avoid hepatotoxins Renal: renal function stable. Continue to monitor Endo: No acute issues ID: Afebrile. No leukocytosis. No signs of infection. Will continue to monitor. Heme: Microcytic anemia of significant iron deficiency and B12 deficiency. Hb 9.3 today and stable. No signs of bleeding. As per the patient and his , patient is up to date with colonoscopy, which is reportedly normal. Continue to monitor CBC. Will start B12 and Ferrous sulfate supplementation FEN: HHD Mild hypokalemia 3.4. Mag 1.9 today. Will replace 40mg PO KCl and 1g Mag sulfate DVT/GI ppx: Protonix, HHD, SCDs, PT/OT Dispo: Transfer to telemetry - Date & Time Date: 11/07/16 Time: 12:42 <Lucius Andres - Last Filed: 11/07/16 13:19> CCU Objective - Vital Signs / Intake & Output Vital Signs (Last 4 hours): Vital Signs BP 11/07/16 09:29 101/61 Intake and Output (Last 8hrs): Intake & Output 11/06/16 11/07/16 11/07/16 22:59 06:59 14:59 Intake Total 949 220 120 Output Total 875 900 500 Balance 74 -680 -380 Weight 145 lb 14.4 oz Intake: IV 449 100 120 Right External Jugular 249 Left Hand 200 100 120 Oral 500 120 Output: Urine 875 900 500 Urine, Voided 875 900 500 Emesis 0 Other: Voiding Method Urinal Urinal # Voids Urine, Voided 3 2 # Bowel Movements 2 1 - Medications Active Medications: Active Medications Generic Name Dose Route Start Last Admin Trade Name Freq PRN Reason Stop Dose Admin Acetaminophen 650 mg 11/05/16 19:40 Tylenol 325mg Tab PO Q4H PRN Pain, Mild (1-3) Amiodarone HCl 200 mg 11/07/16 11:21 Cordarone PO BID RADHA Aspirin 81 mg 11/06/16 10:00 11/07/16 09:29 Ecotrin PO 81 mg DAILY RADHA Administration Atorvastatin Calcium 40 mg 11/06/16 17:00 11/06/16 18:46 Lipitor PO 40 mg DIN RADHA Administration Cyanocobalamin 1,000 mcg 11/07/16 12:15 11/07/16 13:12 Vitamin B12 1000 Mcg Tab PO 1,000 mcg DAILY RADHA Administration Ferrous Sulfate 324 mg 11/07/16 14:00 11/07/16 13:12 Feosol PO 324 mg TID RADHA Administration Furosemide 40 mg 11/08/16 10:00 Lasix PO DAILY RADHA Lisinopril 2.5 mg 11/06/16 10:00 11/07/16 09:29 Zestril PO 2.5 mg DAILY RADHA Administration Metoprolol Tartrate 25 mg 11/06/16 10:00 11/07/16 09:29 Lopressor PO 25 mg BID RADHA Administration Morphine Sulfate 2 mg 11/06/16 07:14 11/06/16 10:13 Morphine IVP 2 mg Q6H PRN Administration Pain, moderate (4-7) Ondansetron HCl 4 mg 11/06/16 08:09 Zofran Inj IVP Q4H PRN Nausea/Vomiting Polyethylene Glycol 17 gm 11/07/16 10:00 11/07/16 09:28 Miralax PO 17 gm DAILY RADHA Administration Ticagrelor 90 mg 11/06/16 10:00 11/07/16 09:29 Brilinta PO 90 mg BID RADHA Administration Zolpidem Tartrate 5 mg 11/05/16 19:40 Ambien PO HS PRN Insomnia - Patient Studies Lab Studies: Microbiology Studies 11/05/16 20:27 MRSA Culture (Admit) - Final Naris MRSA NOT DETECTED Lab Studies 11/07/16 11/06/16 11/06/16 Range/Units 05:22 16:00 05:30 WBC 13.6 H (4.5-11.0) 10^3/ul RBC 4.22 (3.5-6.1) 10^6/uL Hgb 9.3 L (14.0-18.0) gm/dL Hct 30.1 L (42.0-52.0) % MCV 71.3 L (80.0-105.0) fL MCH 22.0 L (25.0-35.0) pg MCHC 30.9 L (31.0-37.0) g/dl RDW 17.4 H (11.5-14.5) % Plt Count 226 (120.0-450.0) 10^3/uL MPV 10.3 (7.0-11.0) fl Gran % 87.0 H (50.0-68.0) % Lymph % (Auto) 5.3 L (22.0-35.0) % [place] % (Auto) 7.6 H (1.0-6.0) % Eos % (Auto) 0.1 L (1.5-5.0) % Baso % (Auto) 0.0 (0.0-3.0) % Gran # 11.87 H (1.4-6.5) Lymph # 0.7 L (1.2-3.4) [place] # 1.0 H (0.1-0.6) Eos # 0.0 (0.0-0.7) Baso # 0.00 (0.0-2.0) K/mm3 Sodium 141 (132-148) mmol/L Potassium 3.4 L (3.6-5.0) mmol/L Chloride 100 (98-107) mmol/L Carbon Dioxide 34 H (21-33) mmol/L Anion Gap 10 (10-20) BUN 18 (7-21) mg/dL Creatinine 0.9 (0.5-1.4) mg/dL Est GFR ( Amer) > 60 Est GFR (Non-Af Amer) > 60 Random Glucose 114 H (70-110) mg/dL Hemoglobin A1c 5.9 (4.2-6.5) % Calcium 8.6 (8.4-10.5) mg/dL Phosphorus 3.0 (2.5-4.5) mg/dL Magnesium 1.9 (1.7-2.2) mg/dL Total Bilirubin 0.9 (0.2-1.3) mg/dL AST 342 H (15-59) U/L ALT 79 H (7-56) U/L Alkaline Phosphatase 59 (38-133) U/L Lactate Dehydrogenase 1978 H (333-699) U/L Total Creatine Kinase 4479 H (35-230) U/L CK-MB (CK-2) 252.0 H (0.0-3.6) ng/mL CK-MB (CK-2) % 5.6 H (2.5-3.0) % Troponin I 103.00 H* D ng/mL Total Protein 7.7 (5.8-8.3) g/dL Albumin 3.9 (3.0-4.8) g/dL Globulin 3.9 gm/dL Albumin/Globulin Ratio 1.0 L (1.1-1.8) Vitamin B12 < 159 L (239-931) pg/mL Folate 9.8 ng/mL 17 Range/Units 02:33 WBC (4.5-11.0) 10^3/ul RBC (3.5-6.1) 10^6/uL Hgb (14.0-18.0) gm/dL Hct (42.0-52.0) % MCV (80.0-105.0) fL MCH (25.0-35.0) pg MCHC (31.0-37.0) g/dl RDW (11.5-14.5) % Plt Count (120.0-450.0) 10^3/uL MPV (7.0-11.0) fl Gran % (50.0-68.0) % Lymph % (Auto) (22.0-35.0) % [place] % (Auto) (1.0-6.0) % Eos % (Auto) (1.5-5.0) % Baso % (Auto) (0.0-3.0) % Gran # (1.4-6.5) Lymph # (1.2-3.4) [place] # (0.1-0.6) Eos # (0.0-0.7) Baso # (0.0-2.0) K/mm3 Sodium (132-148) mmol/L Potassium (3.6-5.0) mmol/L Chloride (98-107) mmol/L Carbon Dioxide (21-33) mmol/L Anion Gap (10-20) BUN (7-21) mg/dL Creatinine (0.5-1.4) mg/dL Est GFR ( Amer) Est GFR (Non-Af Amer) Random Glucose (70-110) mg/dL Hemoglobin A1c (4.2-6.5) % Calcium (8.4-10.5) mg/dL Phosphorus (2.5-4.5) mg/dL Magnesium (1.7-2.2) mg/dL Total Bilirubin (0.2-1.3) mg/dL AST (15-59) U/L ALT (7-56) U/L Alkaline Phosphatase (38-133) U/L Lactate Dehydrogenase (333-699) U/L Total Creatine Kinase (35-230) U/L CK-MB (CK-2) (0.0-3.6) ng/mL CK-MB (CK-2) % (2.5-3.0) % Troponin I 228.00 H* D ng/mL Total Protein (5.8-8.3) g/dL Albumin (3.0-4.8) g/dL Globulin gm/dL Albumin/Globulin Ratio (1.1-1.8) Vitamin B12 (239-931) pg/mL Folate ng/mL Laboratory Results - last 24 hr 11/06/16 11/06/16 11/06/16 02:33 05:30 16:00 WBC RBC Hgb Hct MCV MCH MCHC RDW Plt Count MPV Gran % Lymph % (Auto) [place] % (Auto) Eos % (Auto) Baso % (Auto) Gran # Lymph # [place] # Eos # Baso # Sodium Potassium Chloride Carbon Dioxide Anion Gap BUN Creatinine Est GFR ( Amer) Est GFR (Non-Af Amer) Random Glucose Hemoglobin A1c 5.9 Calcium Phosphorus Magnesium Total Bilirubin AST ALT Alkaline Phosphatase Lactate Dehydrogenase 1978 H Total Creatine Kinase 4479 H CK-MB (CK-2) 252.0 H CK-MB (CK-2) % 5.6 H Troponin I 228.00 H* D 103.00 H* D Total Protein Albumin Globulin Albumin/Globulin Ratio Vitamin B12 < 159 L Folate 9.8 11/07/16 05:22 WBC 13.6 H RBC 4.22 Hgb 9.3 L Hct 30.1 L MCV 71.3 L MCH 22.0 L MCHC 30.9 L RDW 17.4 H Plt Count 226 MPV 10.3 Gran % 87.0 H Lymph % (Auto) 5.3 L [place] % (Auto) 7.6 H Eos % (Auto) 0.1 L Baso % (Auto) 0.0 Gran # 11.87 H Lymph # 0.7 L [place] # 1.0 H Eos # 0.0 Baso # 0.00 Sodium 141 Potassium 3.4 L Chloride 100 Carbon Dioxide 34 H Anion Gap 10 BUN 18 Creatinine 0.9 Est GFR ( Amer) > 60 Est GFR (Non-Af Amer) > 60 Random Glucose 114 H Hemoglobin A1c Calcium 8.6 Phosphorus 3.0 Magnesium 1.9 Total Bilirubin 0.9 AST 342 H ALT 79 H Alkaline Phosphatase 59 Lactate Dehydrogenase Total Creatine Kinase CK-MB (CK-2) CK-MB (CK-2) % Troponin I Total Protein 7.7 Albumin 3.9 Globulin 3.9 Albumin/Globulin Ratio 1.0 L Vitamin B12 Folate Attending/Attestation - Attestation I have personally seen and examined this patient.: Yes I have fully participated in the care of the patient.: Yes I have reviewed all pertinent clinical information: Yes Notes (Text): 11/07/16 13:19 The patient was seen and examined at the bedside. Patient care was discussed with resident Medical records, lab studies, and imaging were reviewed and management issues were discussed and formulated. Last 24H events reviewed. Agree with above treatment plans as outlined in 's note CCM f\u 25min
--- NOTE | 2016-11-07 11:45 | PN ---
DATE: 11/07/2016 The patient is doing well, no shortness of breath, no chest pain. PHYSICAL EXAMINATION: VITAL SIGNS: Blood pressure 101/61, heart rate is in the 80s. NECK: Negative JVD. LUNGS: Without rales. HEART: Reveals S1, S2. EXTREMITIES: Without edema. LABORATORY DATA: The potassium is 3.4, which is replaced. Hemoglobin is 9.3. IMPRESSION: 1. Status post acute anterior wall myocardial infarction. 2. Status post emergency percutaneous transluminal coronary angioplasty and stent of an occluded lef t anterior descending. 3. Ischemic dilated cardiomyopathy. 4. Episode of ventricular fibrillation. 5. Anemia. The patient is doing well. We will discontinue his Lasix to 40 once a day. We will decrease his amiodarone to 200 b.i.d. We briana l transfer the patient to telemetry where the patient needs to start ambulating. Dave Osullivan MD cc: [phone] TT: 11/07/2016 11:44:42 Confirmation # [id number] Dictation # [id number] jn
--- NOTE | 2016-11-07 13:06 | CARD ---
APPROVED REPORT EKG Measurement Heart [id number] DC 162P51 [id number] <Conclusion> Normal sinus rhythm RBBB Left anterior fascicular block ST elevation, consider anterolateral injury or acute infarct ACUTE MA
--- NOTE | 2016-11-07 15:01 | PN ---
DATE: 11/07/2016 The patient is a 61-year-old, seen and examined, lying in bed. He seems to be comfortable. He is mu ch less short of breath today. No complaint of chest pain. He went to receiver/laborer yesterday again. Re peat catheterization did not show anymore thrombosis or stenosis and doing well. PHYSICAL EXAMINATION: VITAL SIGNS: He is afebrile, pulse 80, respirations 24, blood pressure 101/61. LUNGS: Bilateral fair airflow, no rhonchi or crackle. HEART: S1, S2 audible. No murmur. ABDOMEN: Soft, nontender, no rebound, no guarding. NEUROLOGIC: The patient is awake and alert, communicative, moves all extremities. LABORATORY EXAMINATION: WBC is 13.6, hemoglobin 9.3, hematocrit 30, platelet 226. Chemistry: Sodiu m 141, potassium 3.4, chloride 100, CO2 34, BUN 18, creatinine 0.9, blood sugar 140. His AST 342, AL T 79. ASSESSMENT: 1. Status post acute myocardial infarction and he sustained acute anterior wall myocardial infarctio n, status post code heart and had angioplasty done for left anterior descending. 2. Congestive heart failure secondary to ischemia and dilated cardiomyopathy. 3. Status post ventricular fibrillation. 4. B12 deficiency. 5. Iron deficiency. 6. Acute on chronic anemia. PLAN: The patient is being discharged from ICU. He will be transferred to telemetry. He will be am bulated. We will give him another iron infusion and 1 more dose of B12 and encourage ambulation. We will follow up patient in a.m. Discussed with patient's who is by the bedside. Rand Pizano MD cc: [phone] TT: 11/07/2016 15:00:17 Confirmation # [id number] Dictation # [id number]
[2016-11-08 06:10] LABS: ADD MANUAL DIFF? NO
[2016-11-08 06:20] LABS: BASO # 0.02 K/mm3 (0.0-2.0); BASO % 0.2 % (0.0-3.0); EOS # 0.1 (0.0-0.7); EOS % 1.2 % (1.5-5.0); GRAN # 7.82 (1.4-6.5); GRAN % 77.8 % (50.0-68.0); HEMATOCRIT 29.2 % (42.0-52.0); LYMPH # 0.9 (1.2-3.4); LYMPH % 8.6 % (22.0-35.0); MEAN CELL VOLUME 71.6 fL (80.0-105.0); MEAN CORPUSCULAR HEMOGLOBIN 21.8 pg (25.0-35.0); MEAN CORPUSCULAR HGB CONC 30.5 g/dl (31.0-37.0); MEAN PLATELET VOLUME 10.1 fl (7.0-11.0); MONO # 1.2 (0.1-0.6); MONO % 12.2 % (1.0-6.0); PLATELET COUNT 201 10^3/uL (120.0-450.0); RED CELL DISTRIBUTION WIDTH 17.4 % (11.5-14.5)
[2016-11-08 06:42] LABS: ALKALINE PHOSPHATASE 60 U/L (38-133); ALT/SGPT 61 U/L (7-56); AST/SGOT 188 U/L (15-59); BLOOD UREA NITROGEN 26 mg/dL (7-21); CALCIUM 8.5 mg/dL (8.4-10.5); CARBON DIOXIDE 33 mmol/L (21-33); CHLORIDE 101 mmol/L (95-110); GFR AFRICAN-AMERICAN > 60; GLUCOSE,RANDOM 96 mg/dL (70-110); MAGNESIUM 2.1 mg/dL (1.7-2.2); PHOSPHOROUS 2.5 mg/dL (2.5-4.5); POTASSIUM 3.3 mmol/L (3.6-5.0); SODIUM 141 mmol/L (132-148); TOTAL PROTEIN 7.6 g/dL (5.8-8.3)
[2016-11-08] MEDS: POLYETHYLENE GLYCOL 3350 17 GM/Dose PACKET PO SCH (10:04)
[2016-11-08] MEDS ORDERED: Potassium Chloride 20 mEq/15 ml LIQ UD PO STA (12:53)
--- NOTE | 2016-11-08 14:50 | DS ---
The patient is a 61-year-old, seen and examined, sitting in chair, comfortable. No shortness of kacy th, no chest pain. Eating and tolerating, ambulating. PHYSICAL EXAMINATION: VITAL SIGNS: He is afebrile, pulse 76, respirations 20, blood pressure 99/62. LUNGS: Bilateral good airflow, no rhonchi or crackle. HEART: S1, S2 audible. ABDOMEN: Soft, nontender, no rebound, no guarding. LABORATORY EXAM: WBC is 10, hemoglobin 8.9, hematocrit 29, platelet of 201. Chemistry: Sodium 41, potassium 3.3, chloride 101, CO2 33, BUN 26, creatinine 0.9, blood sugar of 96. LFTs shows AST 188, ALT 61. His potassium is 3.3. ASSESSMENT AND PLAN: 1. Status post acute myocardial infarction anterior wall, status post left anterior descending angio plasty. 2. Hypertension. 3. History of anemia. 4. B12 deficiency. 5. Iron deficiency. PLAN: The patient is currently on Brilinta, amiodarone, aspirin 81 daily, ferrous sulfate 320 daily. He will be given 40 mEq of potassium today. He is on Lasix 40 daily, atorvastatin 40 mg daily, met oprolol 25 twice a day and lisinopril 2.5 daily. Will follow up this patient in office in a week. Rand Pizano MD cc: [phone] TT: 11/08/2016 14:49:31 jn
--- NOTE | 2016-11-08 17:57 | PN ---
DATE: 11/08/[address] Dave Osullivan. The patient denies any chest pain or shortness of breath at this time. PHYSICAL EXAMINATION: VITAL SIGNS: Blood pressure 103/64, heart rate 78, temperature 98.8, respiration 20. HEENT: Normocephalic. NECK: No JVD. CHEST: Clear. HEART: S1, S2 regular. EXTREMITIES: No edema. LABORATORIES: CBC: WBC 10, hemoglobin 8.9, hematocrit 29.2, platelet count 201,000. SMA-7: Sodium 141, potassium 3.3, chloride 101, CO2 of 33, glucose 96, BUN 26, creatinine 0.9. ASSESSMENT: 1. Status post anterior wall myocardial infarction. 2. Status post coronary stenting total occlusion of the left anterior descending. 3. Reported ventricular fibrillation. 4. Hypokalemia. 5. Ischemic cardiomyopathy. RECOMMENDATIONS: Continue current amiodarone at 200 mg twice a day. Continue Brilinta 90 mg twice a day, Lasix at 40 mg once a day, Lipitor at 40 mg once a day, Lopressor 25 mg twice a day, Zestril at 2.5 mg once a day. The patient received 40 mEq of oral potassium today and I will maintain 20 mEq o rally daily. I will followup BMP in a.m. I did review the echocardiograph study which revealed mode [id number] depressed ejection fraction. There was no evidence of pericardial effusion. Luis Daniel Riley MD cc: [id number] TT: 11/08/2016 17:56:22 Confirmation # [id number] Dictation # [id number]
[2016-11-09 05:30] VITALS: O2SAT 95
[2016-11-09] MEDS ORDERED: Potassium Chloride 20 mEq ER Tab PO SCH (08:00)
[2016-11-09 09:35] LABS: BLOOD UREA NITROGEN 21 mg/dL (7-21); CARBON DIOXIDE 31 mmol/L (21-33); CHLORIDE 100 mmol/L (98-107); GFR AFRICAN-AMERICAN > 60; GLUCOSE,RANDOM 145 mg/dL (70-110); POTASSIUM 3.8 mmol/L (3.6-5.0); SODIUM 138 mmol/L (132-148)
[2016-11-09] MEDS: POLYETHYLENE GLYCOL 3350 17 GM/Dose PACKET PO SCH (10:28)
[2016-11-09 12:11] VITALS: BP 112/74; PULSE 80; RESP 20; TEMP 98.4
--- NOTE | 2016-11-09 13:03 | DS ---
The patient is a 61-year-old, seen and examined, ambulating, goes a little tachycardic, went up to 10 0 with no chest pain. Mild shortness of breath, no nausea, vomiting, no diarrhea. PHYSICAL EXAMINATION: VITAL SIGNS: He is afebrile, pulse 80, respirations 20, blood pressure 112/74. LUNGS: Bilateral good airflow, no rhonchi or crackle. HEART: S1, S2 audible. No murmur. ABDOMEN: Soft, nontender, no rebound, no guarding. NEUROLOGIC: The patient is awake and alert, communicative. LABORATORY EXAM: WBC is 10, hemoglobin 8.9, hematocrit 29, platelet 201. Chemistry: Sodium 138, po tassium 3.8, chloride 100, CO2 31, BUN 21, creatinine 1.0, blood sugar 145. ASSESSMENT AND PLAN: 1. Status post acute myocardial infarction with anterior wall IL, status post angioplasty already. 2. Post myocardial infarction cardiomyopathy. 3. Episodic ventricular fibrillation, currently on amiodarone. 4. Ischemic cardiomyopathy. 5. Anemia. 6. B12 deficiency. 7. Iron deficiency. PLAN: The patient is being discharged home today. He is advised to get engaged in cardiac rehab. Mable hollins is being discharged home on Brilinta 90 mg twice a day, Metoprolol tartrate 12.5 b.i.d., Lisinopril 2.5 daily, Lasix 40 mg daily, K-Dur 20 mEq daily, Lipitor 40 mg daily, aspirin 81 daily, amiodarone 200 twice a day. He will follow with Dr. Osullivan this coming . Rand Pizano MD cc: [phone] TT: 11/09/2016 13:02:23 ln
--- NOTE | 2016-11-09 15:27 | PN ---
DATE: 11/09/2016 The patient denies any chest pain or shortness of breath at this time. VITAL SIGNS: Blood pressure 112/74, heart rate 80, temperature 98.4, respirations 20. HENT: Pale conjunctivae. CHEST: Minimal basal rhonchi. HEART: S1, S2 regular. EXTREMITIES: No edema, and no groin hematoma. LABORATORIES: Today's SMA-7 is within normal limits except for glucose of 145. ASSESSMENT: 1. Status post anterior wall myocardial infarction with successful stenting to the left anterior desc ending. 2. Status post ventricular fibrillation. 3. Ischemic cardiomyopathy. 4. Improved hypokalemia. RECOMMENDATIONS: The patient can be discharged on Brilinta 90 mg twice a day, amiodarone 200 mg twic e a day, aspirin 81 mg once a day, K-Dur 20 mEq once a day, Lasix 40 mg once a day, Lipitor 40 mg onc e a day, Lopressor 25 mg twice a day, and lisinopril 2.5 mg once a day. I emphasized with the patien t and his the absolute need for compliance with antiplatelet therapy for at least 1 year. Luis Daniel Riley MD cc: [phone] TT: 11/09/2016 15:27:10 Confirmation # [id number] Dictation # [id number] jn
--- NOTE | 2016-11-11 11:33 | CARD ---
APPROVED REPORT EXAM: Two-dimensional and M-mode echocardiogram with Doppler and color Doppler. INDICATION Pericarditis LV Function:SystolicDiastolic 2D DIMENSIONS Left Atrium (2D)3.7 (1.6-4.0cm)IVSd1.0 (0.7-1.1cm) LVDd5.1 (3.9-5.9cm)PWd1.0 (0.7-1.1cm) LVDs4.2 (2.5-4.0cm)FS (%) 18.1 % LVEF (%)37.3 (>50%) M-Mode DIMENSIONS Aortic Root3.20 (2.2-3.7cm)Aortic Cusp Exc.1.90 (1.5-2.0cm) Aortic Valve AoV Peak Krfufwou080.0cm/Joaquin Peak GR.7mmHg Mitral Valve MV E Odsnguoa51.5cm/sMV A Kzduomui42.6cm/sE/A ratio0.8 TDI E/Lateral E'0.0E/Medial E'0.0 Tricuspid Valve TR Peak Oqzzlwkw964gq/sRAP JJCONAGJ04plZfYW Peak Gr.18mmHg [id number] LEFT VENTRICLE The systolic function is moderately impaired. Septal motion abnormality RIGHT VENTRICLE The right ventricle is normal size. ATRIA The left atrium is mildly dilated. The right atrium size is normal. AORTIC VALVE The aortic valve is thickened but opens well. There is trace to mild aortic regurgitation. MITRAL VALVE The mitral valve is thickened but opens well. Mitral regurgitation is trace to mild. TRICUSPID VALVE The tricuspid valve leaflets are thickened , but open well. There is mild tricuspid regurgitation. There is no pulmonary hypertension. PERICARDIAL EFFUSION There is a small pericardial effusion. <Conclusion> LV hypokinesis with septal wall motion abnormality AoV sclerosis Dilated LA Mild TR, AI Trace MR No pulmonary hypertension
== END 2016-11-09 14:06 | disposition home or self-care (01) | DRG 248 ==
LOC: ED 18:14 → CATH 18:40 → CCU 19:40 → CATH 19:40 → CCU 19:58 → 2RSO 11-07 12:50
PROVIDERS: ADMIT Internal Medicine Cardiovascular Disease; ATTEND Internal Medicine Cardiovascular Disease
PROC: 02703DZ Dilation of Coronary Artery, One Artery with Intraluminal Device, Percutaneous Approach (ICD-10-PCS; principal; 2016-11-05)
PROC: 4A023N7 Measurement of Cardiac Sampling and Pressure, Left Heart, Percutaneous Approach (ICD-10-PCS; 2016-11-05)
PROC: B2111ZZ Fluoroscopy of Multiple Coronary Arteries using Low Osmolar Contrast (ICD-10-PCS; 2016-11-05)
PROC: B2151ZZ Fluoroscopy of Left Heart using Low Osmolar Contrast (ICD-10-PCS; 2016-11-05)
PROC: 5A2204Z Restoration of Cardiac Rhythm, Single (ICD-10-PCS; 2016-11-05)
PROC: 3E033PZ Introduction of Platelet Inhibitor into Peripheral Vein, Percutaneous Approach (ICD-10-PCS; 2016-11-05)
DX: I21.02 ST elevation (STEMI) myocardial infarction involving left anterior descending coronary artery (principal); I49.01 Ventricular fibrillation; I47.2 Ventricular tachycardia; I42.0 Dilated cardiomyopathy; I25.82 Chronic total occlusion of coronary artery; I50.9 Heart failure, unspecified; D62 Acute posthemorrhagic anemia; I97.791 Other intraoperative cardiac functional disturbances during other surgery; I10 Essential (primary) hypertension; E53.8 Deficiency of other specified B group vitamins; E87.6 Hypokalemia; I25.10 Atherosclerotic heart disease of native coronary artery without angina pectoris; I25.5 Ischemic cardiomyopathy; K29.70 Gastritis, unspecified, without bleeding; Z82.49 Family history of ischemic heart disease and other diseases of the circulatory system; Y84.0 Cardiac catheterization as the cause of abnormal reaction of the patient, or of later complication, without mention of misadventure at the time of the procedure; Z87.19 Personal history of other diseases of the digestive system; R40.2412 Glasgow coma scale score 13-15, at arrival to emergency department; D50.0 Iron deficiency anemia secondary to blood loss (chronic)

== ENCOUNTER 2017-01-30 08:04 | Day surgery (SDC) | payer BC ==
[2017-01-29 10:29] VITALS: BMI 22.6
[2017-01-30 08:40] LABS: ADD MANUAL DIFF? NO
[2017-01-30 08:43] VITALS: RESP 18
[2017-01-30 08:51] LABS: BASO # 0.05 K/mm3 (0.0-2.0); BASO % 0.9 % (0.0-3.0); EOS # 0.3 (0.0-0.7); EOS % 4.5 % (1.5-5.0); GRAN # 3.94 (1.4-6.5); GRAN % 71.1 % (50.0-68.0); HEMATOCRIT 30.5 % (42.0-52.0); LYMPH # 0.9 (1.2-3.4); LYMPH % 16.6 % (22.0-35.0); MEAN CELL VOLUME 74.8 fL (80.0-105.0); MEAN CORPUSCULAR HEMOGLOBIN 22.1 pg (25.0-35.0); MEAN CORPUSCULAR HGB CONC 29.5 g/dl (31.0-37.0); MONO # 0.4 (0.1-0.6); MONO % 6.9 % (1.0-6.0); PLATELET COUNT 372 10^3/uL (120.0-450.0); RED CELL DISTRIBUTION WIDTH 17.1 % (11.5-14.5); WHITE BLOOD COUNT 5.5 10^3/ul (4.5-11.0)
[2017-01-30 08:52] LABS: BLOOD UREA NITROGEN 13 mg/dL (7-21); CALCIUM 9.3 mg/dL (8.4-10.5); CARBON DIOXIDE 27 mmol/L (21-33); CHLORIDE 107 mmol/L (98-107); CHOLESTEROL 127 mg/dL (130-200); GFR AFRICAN-AMERICAN > 60; GLUCOSE,RANDOM 92 mg/dL (70-110); POTASSIUM 3.9 mmol/L (3.6-5.0); SODIUM 142 mmol/L (132-148)
[2017-01-30 08:53] LABS: PARTIAL THROMBOPLASTIN TIME 26.4 Seconds (23.7-30.8)
[2017-01-30] MEDS ORDERED: Lidocaine 2% Inj (20ml) ONE (09:54)
[2017-01-30] MEDS ORDERED: Iohexol 350mgl/ml 50 ML ONE (09:54)
[2017-01-30] MEDS ORDERED: Midazolam 2 MG/2 ML VIAL ONE ×2 (10:36→11:13)
[2017-01-30] MEDS ORDERED: Iohexol 350 MG/100 ML VIAL ONE (11:18)
[2017-01-30] MEDS ORDERED: Sodium Chloride 0.9% 1,000 ML IV SCH (11:45)
[2017-01-30 12:09] VITALS: TEMP 97.3; O2SAT 100
--- NOTE | 2017-01-30 12:35 | CARDCATH ---
PROCEDURE DATE: 01/30/2017 HISTORY OF PRESENT ILLNESS: The patient is a 62-year-old male who is status post acute anterior wall myocardial infarction with October of this year. He presents with recurrence of angina-like symptoms. The patient was noncompliant with all his medications other than Brilinta. After extensive discussio n, the patient agreed to go back on his aspirin as well as his beta blockers and statin therapy. Because of ongoing symptoms, repeat catheterization was advised. PROCEDURE: Left heart catheterization with coronary angiography and left ventriculogram. The right femoral artery was cannulated with a 6-Cymraes sheath. There were no complications. The findings on catheterization revealed a left ventricle that revealed apical akinesis. His overall LV function was approximately 50%. His coronary anatomy revealed a right dominant circulation. The RCA revealed intimal irregularities without critical lesions. In the mid portion of the PDA, the re is a 50% stenosis noted. Left main artery was unremarkable. The LAD revealed a patent stent in the proximal portion, which was his infarct related artery. The second diagonal vessel revealed a 50% stenosis in the mid portion. The circumflex artery and obtuse marginal branches were free of significant disease. Manual compression was used to close the femoral artery site. The patient tolerated the procedure well. SUMMARY: The procedure revealed: 1. A patent stent in the left anterior descending. 2. Markedly improved left ventricular function from his acute anterior wall angiogram. 3. A 50% stenosis in the posterior descending artery and a 50% stenosis in the second diagonal vesse l. Given these findings, the patient's treatment will need to be compliant with his medical therapy. An exercise program would be appropriate. Dave Osullivan MD cc: [phone] TT: 01/30/2017 12:34:55 en
--- NOTE | 2017-01-30 13:25 | CARD ---
APPROVED REPORT EKG Measurement Heart [id number] HI 162P47 [id number] <Conclusion> Normal sinus rhythm Anteroseptal infarct, age undetermined T wave abnormality, consider lateral ischemia LAD
[2017-01-30 15:47] VITALS: BP 113/76; PULSE 64
== END 2017-01-30 17:40 | disposition home or self-care (01) ==
LOC: CATH 08:04
PROVIDERS: ATTEND Internal Medicine Cardiovascular Disease
DX: I25.119 Atherosclerotic heart disease of native coronary artery with unspecified angina pectoris (principal); E78.00 Pure hypercholesterolemia, unspecified; Z91.14 Patient's other noncompliance with medication regimen; I25.2 Old myocardial infarction
CPT/HCPCS: 36415; 80048; 80061; 85025; 85610; 85730; 86850; 86900; 93005; 93458; 99152; C1769; C2629; J1644; J2250; J3010; J7040 ×2; Q9967 ×2

== ENCOUNTER 2017-07-04 10:23 | Inpatient (IN) | payer BC ==
[2017-07-04 10:58] VITALS: BMI 23.3
--- NOTE | 2017-07-04 11:04 | ED PDOC ---
Arrival/HPI - General Time Seen by Provider: 07/04/17 10:24 Historian: Patient - History of Present Illness Narrative History of Present Illness (Text): 07/04/17 11:01 62 y/o male, pmh including STEMI (as per patient) in 04/2016 with repeat cardiac cath with 50% stenosis on the PDA in 01/2017 as he was having chest pain , nkda, c/o chest pain on and off with exertional for 1 month and stated that he had bright red rectal bleeding (on and off x 1 month now) with iron defiency anemia which he is following up with DR. Pizano and Dr. Richard. Pt. stated that he received a call today from Dr. Richard that to tell him to come to the ER as he is "very anemia." Pt. stated that he does admit that he feels fatigue recently, been having on and off chest pain x 1 month, no night sweat, no weight loss. Pt. he is on the statin/beta yury and brillinta. Pt. has no ecchymosis or hematuria. Pt. has no active chest pain or shortness of breath, no other medical or psychological complaints. Past Medical History - Provider Review Nursing Documentation Reviewed: Yes - Infectious Disease Hx of Infectious Diseases: None - Cardiac Hx Cardiac Disorders: Yes Hx ID: Yes (cardiac cath "I think one stent") Hx Hypertension: Yes Hx Pacemaker: No - Pulmonary Hx Respiratory Disorders: No - Neurological Hx Neurological Disorder: No Hx Paralysis: No - HEENT Hx HEENT Disorder: No - Renal Hx Renal Disorder: No - Endocrine/Metabolic Hx Endocrine Disorders: No - Hematological/Oncological Hx Blood Disorders: Yes Hx Blood Transfusions: Yes (FEW YRS AGO) Hx Blood Transfusion Reaction: No - Integumentary Hx Dermatological Disorder: No - Musculoskeletal/Rheumatological Hx Musculoskeletal Disorders: No - Gastrointestinal Hx Gastrointestinal Disorders: Yes (RECTAL BLEEDING) - Genitourinary/Gynecological Hx Genitourinary Disorders: Yes (difficulty urinating) - Psychiatric Hx Psychophysiologic Disorder: No Hx Emotional Abuse: No Hx Physical Abuse: No Hx Substance Use: No - Surgical History Hx Cardiac Catheterization: Yes Hx Coronary Stent: Yes ("I think one stent.") - Anesthesia Hx Anesthesia: Yes Hx Anesthesia Reactions: No Hx Malignant Hyperthermia: No - Suicidal Assessment Feels Threatened In Home Enviroment: No Family/Social History - Physician Review Nursing Documentation Reviewed: Yes Family/Social History: Unknown Family HX Smoking Status: Never Smoked Hx Alcohol Use: No Hx Substance Use: No Allergies/Home Meds Allergies/Adverse Reactions: Allergies No Known Allergies Allergy (Verified 01/16/12 14:37) Home Medications: Home Meds Medication Instructions Recorded Confirmed Desloratadine [Clarinex] 5 mg PO DAILY 07/04/17 07/04/17 Simvastatin [Zocor] 40 mg PO DAILY 07/04/17 07/04/17 Review of Systems - Review of Systems Constitutional: Fatigue. absent: Fevers Eyes: absent: Vision Changes ENT: absent: Hearing Changes Respiratory: absent: SOB, Cough Cardiovascular: Chest Pain Gastrointestinal: Hematochezia. absent: Abdominal Pain, Nausea, Vomiting Skin: absent: Rash, Pruritis Neurological: absent: Headache, Dizziness Psychiatric: absent: Anxiety, Depression, Suicidal Ideation Physical Exam Vital Signs Reviewed: Yes Vital Signs Temp Pulse Resp BP Pulse Ox 07/04/17 13:48 97.6 F 65 17 120/75 07/04/17 13:27 97.7 F 67 19 129/70 100 07/04/17 13:13 97.8 F 65 19 126/80 100 07/04/17 12:45 66 18 124/68 100 07/04/17 11:30 98.0 F 79 18 126/65 100 07/04/17 10:23 98.6 F 89 17 129/67 100 Temperature: Afebrile Blood Pressure: Normal Pulse: Regular Respiratory Rate: Normal Appearance: Positive for: Non-Toxic, Ill-Appearing, Other (+pale) Pain Distress: None Mental Status: Positive for: Alert and Oriented X 3 - Systems Exam Head: Present: Atraumatic, Normocephalic Pupils: Present: PERRL Extroacular Muscles: Present: EOMI Conjunctiva: Present: Normal Mouth: Present: Moist Mucous Membranes Neck: Present: Normal Range of Motion Respiratory/Chest: Present: Clear to Auscultation, Good Air Exchange. No: Respiratory Distress, Accessory Muscle Use Cardiovascular: Present: Regular Rate and Rhythm, Normal S1, S2. No: Murmurs Abdomen: Present: Normal Bowel Sounds. No: Tenderness, Distention, Peritoneal Signs, Rebound, Guarding Rectal: Present: Hemorrhoids (multiple external hemorrhoids and non-thrombosed) , Normal Rectal Tone, Other (Female Rubbish Collection Supervisor: DATA VISUALIZATION DEVELOPER Soraya Goddard, there is guaiac positive with repeated test. ). No: Occult Blood, Rectal Tenderness, Gross Blood, Melena, Fissures, Nodule/Mass/Lesions Back: Present: Normal Inspection Upper Extremity: Present: Normal Inspection. No: Cyanosis, Edema Lower Extremity: Present: Normal Inspection. No: Edema Neurological: Present: GCS=15, Speech Normal, Motor Func Grossly Intact, Gait Normal, Memory Normal Skin: Present: Dry, Pale. No: Rashes Psychiatric: Present: Alert, Oriented x 3, Normal Insight, Normal Concentration Medical Decision Making ED Course and Treatment: 07/04/17 11:05 -labs/ua/pt/ptt/type and screen -chest xray -ekg -IVF -observe and reassess 07/04/17 12:28 -EKG: NSR @ 69 BPM, RBBB, no obvious ST elevation or depression, no T wave inversion. -Chest xray show no active disease. -Labs are non-significant except significant anemia with hgb 6.5, symptomatic, will transfuse with 2 units with consents obtained verbal and written. Benadryl and tylenol ordered as well. -Coagulation and platate within normal limit. -pt. is guaiac positive with multiple external hemorrhoids. -Pt. will need admission to the hospital for GI/Hematology and Cardiology consult, not stable to be discharged, will start transfusing. 07/04/17 12:43 -Case discussed with DR. Anna and he agreed on the admission, he will put in the admission order. -I discussed the case and labs with the pmd DR. Pizano, agreed to admit the patient and have DR. Jack Pa (GI) and DR. Dave Osullivan (Baggage Smasher) added to the consult. 07/04/17 13:52 -Case discussed and sign off to Dr. Pizano, she will follow up the medical care and pending labs. - Critical Care Critical Care Minutes: 30 minutes Narrative Critical Care (Text): 07/04/17 12:29 -blood transfusion and severe anemia with lower GI bleed. -Chest pain - Lab Interpretations Lab Results: 07/04/17 11:35 07/04/17 11:35 Lab Results 07/04/17 11:35: Blood Type A POSITIVE, Antibody Screen Negative, Crossmatch See Detail, BBK History Checked Patient has bt 07/04/17 11:35: WBC 4.1 L D, RBC 3.06 L, Hgb 6.5 L*, Hct 21.7 L, MCV 70.9 L, MCH 21.2 L, MCHC 30.0 L, RDW 17.0 H, Plt Count 250, MPV 9.3, Gran % 65.7, Lymph % (Auto) 19.5 L, [place] % (Auto) 9.9 H, Eos % (Auto) 4.4, Baso % (Auto) 0.5, Gran # 2.67, Lymph # 0.8 L, [place] # 0.4, Eos # 0.2, Baso # 0.02 07/04/17 11:35: Sodium 142, Potassium 4.0, Chloride 107, Carbon Dioxide 27, Anion Gap 12, BUN 10, Creatinine 0.7 L, Est GFR ( Amer) > 60, Est GFR ( Non-Af Amer) > 60, Random Glucose 98, Calcium 8.9, Magnesium 1.9, Total Bilirubin 0.6, AST 33, ALT 38, Alkaline Phosphatase 48, Lactate Dehydrogenase 300 L, Total Creatine Kinase 58, Troponin I < 0.01 D, Total Protein 7.4, Albumin 4.0, Globulin 3.4, Albumin/Globulin Ratio 1.2 07/04/17 11:35: PT 11.9, INR 1.08, APTT 27.6 I have reviewed the lab results: Yes Interpretation: Abnormal lab values (Hgb 6.5) - RAD Interpretation Radiology Orders: 07/04/17 11:07 CHEST PORTABLE [RAD] Stat Chest xray: HISTORY: medical clearance COMPARISON: 11/05/2016 FINDINGS: LUNGS: No active pulmonary disease. PLEURA: No significant pleural effusion identified, no pneumothorax apparent. CARDIOVASCULAR: Normal. OSSEOUS STRUCTURES: No significant abnormalities. VISUALIZED UPPER ABDOMEN: Normal. OTHER FINDINGS: None. IMPRESSION: No active disease. Hazardous Materials Handler: Radiologist - Medication Orders Current Medication Orders: Sodium Chloride (Sodium Chloride 0.9%) 1,000 mls @ 100 mls/hr IV .Q10H RADHA Last Admin: 07/04/17 11:33 Dose: 100 mls/hr eMAR Start Stop Document 07/04/17 11:33 SF (Rec: 07/04/17 11:34 [email or web address]) Intravenous Solution Start Date 07/04/17 Start Time 11:34 End Date 07/04/17 Discontinued Medications Acetaminophen (Tylenol 325mg Tab) 650 mg PO STAT STA Stop: 07/04/17 12:25 Last Admin: 07/04/17 13:00 Dose: 650 mg Diphenhydramine HCl (Benadryl) 25 mg IVP STAT STA Stop: 07/04/17 12:25 Last Admin: 07/04/17 13:00 Dose: 25 mg IVP Administration Document 07/04/17 13:00 SF (Rec: 07/04/17 13:00 [email or web address]) Charges for Administration # of IVP Administrations 1 - PA / SALES AGENT PROTECTIVE SERVICE / Resident Statement MD/DO has reviewed & agrees with the documentation as recorded. Disposition/Present on Arrival - Present on Arrival Any Indicators Present on Arrival: No History of DVT/PE: No History of Uncontrolled Diabetes: No Urinary Catheter: No History of Decub. Ulcer: No History Surgical Site Infection Following: None - Disposition Have Diagnosis and Disposition been Completed?: Yes Diagnosis: Hemorrhoids, Lower GI bleed, Symptomatic anemia, Exertional chest pain Disposition: HOSPITALIZED Disposition Time: 12:28 Patient Plan: Admission, Telemetry Patient Problems: Current Active Problems Problem Status Onset Hemorrhoids Acute Lower GI bleed Acute Symptomatic anemia Acute Exertional chest pain Acute Condition: GUARDED
--- NOTE | 2017-07-04 11:24 | RAD ---
HISTORY: medical clearance COMPARISON: 11/05/2016 FINDINGS: LUNGS: No active pulmonary disease. PLEURA: No significant pleural effusion identified, no pneumothorax apparent. CARDIOVASCULAR: Normal. OSSEOUS STRUCTURES: No significant abnormalities. VISUALIZED UPPER ABDOMEN: Normal. OTHER FINDINGS: None. IMPRESSION: No active disease.
[2017-07-04] MEDS: Sodium Chloride 0.9% 1,000 ML IV SCH ×2 (11:33→23:23)
[2017-07-04 11:49] LABS: BASO # 0.02 K/mm3 (0.0-2.0); BASO % 0.5 % (0.0-3.0); EOS # 0.2 (0.0-0.7); EOS % 4.4 % (1.5-5.0); GRAN # 2.67 (1.4-6.5); GRAN % 65.7 % (50.0-68.0); LYMPH # 0.8 (1.2-3.4); LYMPH % 19.5 % (22.0-35.0); MEAN CELL VOLUME 70.9 fl (80.0-105.0); MEAN CORPUSCULAR HEMOGLOBIN 21.2 pg (25.0-35.0); MEAN PLATELET VOLUME 9.3 fl (7.0-11.0); MONO # 0.4 (0.1-0.6); MONO % 9.9 % (1.0-6.0); WHITE BLOOD COUNT 4.1 10^3/ul (4.5-11.0)
[2017-07-04 11:54] LABS: HEMATOCRIT 21.7 % (42.0-52.0)
[2017-07-04 12:08] LABS: INR 1.08 (0.93-1.08); PARTIAL THROMBOPLASTIN TIME 27.6 Seconds (25.1-36.5)
[2017-07-04 12:10] LABS: ALB/GLOB RATIO 1.2 (1.1-1.8); ALKALINE PHOSPHATASE 48 U/L (38-126); ALT/SGPT 38 U/L (7-56); AST/SGOT 33 U/L (17-59); BILIRUBIN,TOTAL 0.6 mg/dL (0.2-1.3); BLOOD UREA NITROGEN 10 mg/dL (7-21); CALCIUM 8.9 mg/dL (8.4-10.5); CARBON DIOXIDE 27 mmol/L (21-33); CHLORIDE 107 mmol/L (98-107); GFR AFRICAN-AMERICAN > 60; GLUCOSE,RANDOM 98 mg/dL (70-110); MAGNESIUM 1.9 mg/dL (1.7-2.2); SODIUM 142 mmol/L (132-148); TOTAL PROTEIN 7.4 g/dL (5.8-8.3)
[2017-07-04 12:24] LABS: TROPONIN I < 0.01 ng/mL
[2017-07-04] MEDS ORDERED: DiphenhydrAMINE 50 mg/ml Inj IVP STA (12:24)
[2017-07-04 14:31] LABS: URINE BILIRUBIN NEGATIVE (NEGATIVE); URINE BLOOD NEGATIVE (NEGATIVE); URINE GLUCOSE (UA) NEGATIVE (NEGATIVE); URINE KETONE NEGATIVE (NEGATIVE); URINE LEUKOCYTE ESTERASE NEGATIVE Leu/uL (NEGATIVE); URINE PROTEIN NEGATIVE mg/dL (<30 mg/dL); URINE UROBILINOGEN 0.2 E.U./dL (<1 E.U./dL)
[2017-07-04 14:32] LABS: URINE APPEARANCE CLEAR (CLEAR); URINE COLOR STRAW (YELLOW)
--- NOTE | 2017-07-04 15:34 | CARD ---
APPROVED REPORT EKG Measurement Heart [id number] TN 154P57 [id number] <Conclusion> Normal sinus rhythm Poor R Progression V1-V4.
--- NOTE | 2017-07-04 18:59 | CP.PCM.CON ---
<Swetha Jamison - Last Filed: 07/04/17 19:00> History of Present Illness - History of Present Illness History of Present Illness: Surgery: Dr. Ross Pt is a 62M with PMHx significant for HTN, HLD, Iron deficiency anemia, CAD s/p PTCA with stents in October, on Brilinta who was sent to the ER by his PMD due to low H/H. Pt states he has a hx of GI bleeding and has been admitted to the hospital in the past for such symptoms. He states he has been seeing blood in the toilet for the past week or so but thought it would stop as it does usually. He admits to bright red blood that covers the entire toilet bowl. Yesterday he went to see his PMD and had blood work done, and this morning he was called and told to go to the ER. He denies any other symptoms at this time such as light headedness, dizziness, F/C, N/V, chest pain or SOB. Pt states his last EGD/colonoscopy was in 2013 and it was normal. Currently, denies any pain or other symptoms. Review of Systems - Review of Systems All systems: reviewed and no additional remarkable complaints except (as per HPI ) Past Patient History - Infectious Disease Hx of Infectious Diseases: None - Past Medical History & Family History Past Medical History?: Yes - Past Social History Smoking Status: Never Smoked - CARDIAC Hx Cardiac Disorders: Yes Hx Heart Attack: Yes Hx Hypertension: Yes Hx Pacemaker: No - PULMONARY Hx Respiratory Disorders: No - NEUROLOGICAL Hx Neurological Disorder: No Hx Paralysis: No - HEENT Hx HEENT Problems: No - RENAL Hx Chronic Kidney Disease: No - ENDOCRINE/METABOLIC Hx Endocrine Disorders: No - HEMATOLOGICAL/ONCOLOGICAL Hx Blood Disorders: Yes Hx Blood Transfusions: Yes (FEW YRS AGO) Hx Blood Transfusion Reaction: No - INTEGUMENTARY Hx Dermatological Problems: No - MUSCULOSKELETAL/RHEUMATOLOGICAL Hx Musculoskeletal Disorders: No - GASTROINTESTINAL Hx Gastrointestinal Disorders: Yes (RECTAL BLEEDING) - PSYCHIATRIC Hx Psychophysiologic Disorder: No Hx Emotional Abuse: No Hx Physical Abuse: No Hx Substance Use: No - SURGICAL HISTORY Hx Cardiac Catheterization: Yes Hx Coronary Stent: Yes - ANESTHESIA Hx Anesthesia: Yes Hx Anesthesia Reactions: No Hx Malignant Hyperthermia: No Meds Allergies/Adverse Reactions: Allergies Allergy/AdvReac Type Severity Reaction Status Date / Time No Known Allergies Allergy Verified 01/16/12 14:37 - Medications Medications: Current Medications Atorvastatin Calcium (Lipitor) 40 mg PO HS [facility] Sodium Chloride (Sodium Chloride 0.9%) 1,000 mls @ 100 mls/hr IV .Q10H [facility] Last Admin: 07/04/17 11:33 Dose: 100 mls/hr Metoprolol Tartrate (Lopressor) 25 mg PO BID [facility] Last Admin: 07/04/17 17:37 Dose: Not Given Pantoprazole Sodium (Protonix Ec Tab) 40 mg PO 0630 [facility] Ticagrelor (Brilinta) 90 mg PO BID [facility] Last Admin: 07/04/17 17:38 Dose: 90 mg Physical Exam - Constitutional Appears: Well, No Acute Distress - Head Exam Head Exam: ATRAUMATIC, NORMOCEPHALIC - Eye Exam Eye Exam: Normal appearance - ENT Exam ENT Exam: Mucous Membranes Moist - Respiratory Exam Respiratory Exam: NORMAL BREATHING PATTERN - Cardiovascular Exam Cardiovascular Exam: RRR - GI/Abdominal Exam GI & Abdominal Exam: Soft. absent: Distended, Guarding, Tenderness - Rectal Exam Rectal Exam: Hemorrhoids (external) Additional comments: good rectal tone, no blood - Extremities Exam Extremities exam: Positive for: full ROM - Neurological Exam Neurological exam: Alert, Oriented x3 - Skin Skin Exam: Dry, Warm Results - Vital Signs Recent Vital Signs: Last Vital Signs Temp 97.8 F 07/04/17 18:07 Pulse 71 07/04/17 18:07 Resp 16 07/04/17 18:07 BP 125/65 07/04/17 18:07 Pulse Ox 100 07/04/17 14:08 - Labs Result Diagrams: 07/04/17 11:35 07/04/17 11:35 Labs: Laboratory Results - last 24 hr 07/04/17 14:13 Urine Color Straw Urine Appearance Clear Urine pH 6.0 Ur Specific [place] 1.010 Urine Protein Negative Urine Glucose (UA) Negative Urine Ketones Negative Urine Blood Negative Urine Nitrate Negative Urine Bilirubin Negative Urine Urobilinogen 0.2 Ur Leukocyte Esterase Negative Assessment & Plan - Assessment and Plan (Free Text) Assessment: 62M with GI bleed & hemorrhoids Plan: - unlikley that hemorrhoids are the cause of pt's GI bleed - GI is on board and pt's getting 2 units PRBCs - cont to monitor H/H - f/u GI recs - will cont to follow - d/w Dr. Cody Jamison, PGY-3 Surgery <Sea Ross - Last Filed: 07/05/17 08:56> Meds - Medications Medications: Current Medications Atorvastatin Calcium (Lipitor) 40 mg PO HS [facility] Last Admin: 07/04/17 21:25 Dose: 40 mg Sodium Chloride (Sodium Chloride 0.9%) 1,000 mls @ 100 mls/hr IV .Q10H [facility] Last Admin: 07/05/17 02:00 Dose: 100 mls/hr Metoprolol Tartrate (Lopressor) 25 mg PO BID [facility] Last Admin: 07/04/17 17:37 Dose: Not Given Pantoprazole Sodium (Protonix Ec Tab) 40 mg PO 0630 [facility] Last Admin: 07/05/17 05:46 Dose: 40 mg Polyethylene Glycol (Miralax) 17 gm PO BID [facility] Results - Vital Signs Recent Vital Signs: Last Vital Signs Temp 97.7 F 07/05/17 06:00 Pulse 71 07/05/17 06:00 Resp 20 07/05/17 06:00 BP 96/55 L 07/05/17 06:00 Pulse Ox 95 07/05/17 06:00 - Labs Result Diagrams: 07/05/17 06:00 07/05/17 06:00 Labs: Laboratory Results - last 24 hr 07/04/17 07/05/17 07/05/17 14:13 06:00 06:00 WBC 5.8 D RBC 3.61 Hgb 8.2 L Hct 26.7 L MCV 74.0 L D MCH 22.7 L MCHC 30.7 L RDW 18.6 H Plt Count 234 MPV 9.8 Gran % 73.4 H Lymph % (Auto) 15.6 L [place] % (Auto) 7.8 H Eos % (Auto) 3.0 Baso % (Auto) 0.2 Gran # 4.23 Lymph # 0.9 L [place] # 0.5 Eos # 0.2 Baso # 0.01 Sodium 142 Potassium 4.2 Chloride 111 H Carbon Dioxide 27 Anion Gap 8 L BUN 11 Creatinine 0.8 Est GFR ( Amer) > 60 Est GFR (Non-Af Amer) > 60 Random Glucose 94 Calcium 8.9 Total Bilirubin 1.0 AST 37 ALT 33 Alkaline Phosphatase 46 Total Protein 6.7 Albumin 3.5 Globulin 3.1 Albumin/Globulin Ratio 1.1 Urine Color Straw Urine Appearance Clear Urine pH 6.0 Ur Specific [place] 1.010 Urine Protein Negative Urine Glucose (UA) Negative Urine Ketones Negative Urine Blood Negative Urine Nitrate Negative Urine Bilirubin Negative Urine Urobilinogen 0.2 Ur Leukocyte Esterase Negative Assessment & Plan - Assessment and Plan (Free Text) Assessment: note incorrect: Most likely hemorrhoids are causal in chr anemia(Iron 11/last colonoscopy revealed only symptomatic Int Hemorrhoids) The patients Brilinta-ASA prevent more definitive Rx now Pt is transfused 2 UPRBC to Hgb 8.2 I have initiated Miralax now. The pt WILL NEED EGD-Colonoscopy I can Rubber Band his hemorrhoids in the office as an out patient This consult done under my direct supervision Galina Ross MD FACS
--- NOTE | 2017-07-04 19:37 | HP ---
HISTORY OF PRESENT ILLNESS: The patient is 62-year-old, known to me from office practice and previous admission, has been having anemia. For that, he was referred to Dr. Richard, who did blood work and was found to have low hemoglobin of 6.5, so he was referred to emergency room. Because of his recent coronary artery disease episode, he was referred to get blood transfusion. He complained of chest pain, complained of generalized weakness, complained of getting shortness of breath. Denies any fever or chills. PAST MEDICAL HISTORY: Significant for; 1. Chronic anemia. The patient states he had hemorrhoids, that he was bleeding intermittently for sometime. 2. Coronary artery disease, status post recent angioplasty in which he had acute anterior wall DC and has left anterior descending angioplasty done. 3. B12 deficiency. 4. Cardiomyopathy with ejection fraction of 30%. ALLERGIES: HE IS NOT ALLERGIC TO ANY MEDICATION. MEDICATIONS AT HOME: He is on Lipitor 40 mg daily, Brilinta 90 mg twice a day, Clarinex as needed, aspirin 81 daily, Zocor 40 mg daily, metoprolol 25 twice a day. SOCIAL HISTORY: He is . He has two children and denies smoking. 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 REVIEW OF SYSTEMS: Some chest discomfort, shortness of breath and feeling weak and dizzy. PHYSICAL EXAMINATION: GENERAL: He is awake, alert, oriented, and communicative. VITAL SIGNS: He is afebrile, pulse 71, respirations 16, blood pressure 125/65. LUNGS: Bilateral fair airflow. No rhonchi or crackles. HEART: S1 and S2 audible. ABDOMEN: Soft, nontender, no rebound, and no guarding. NEUROLOGIC: He is awake, alert, oriented, and communicative. LABORATORY EXAM: WBC 4.1, hemoglobin 6.5, hematocrit 21.7, and platelets 250. PT 11.9 and INR 1.08. Chemistry: Sodium 142, potassium 4.0, chloride 107, CO2 of 27, BUN 10, creatinine 0.7, and blood sugar of 98. LDH is 300. Urine analysis is unremarkable. ASSESSMENT: 1. Symptomatic anemia. 2. Stool Hemoccult positive. 3. Coronary artery disease status post recent left anterior descending angioplasty. 4. B12 deficiency. The patient had colonoscopy done by Dr. King, and it was unremarkable. PLAN: We will transfuse him 2 pack RBCs. We will start him on beta-yury, hold for aspirin, start him on Protonix, heart-healthy diet, GI evaluation by Dr. Pa, and cardiology evaluation by Dr. Osullivan has been requested. Dr. Richard will follow up for anemia workup. Rand Pizano MD
[2017-07-05] MEDS: Sodium Chloride 0.9% 1,000 ML IV SCH ×2 (02:00→21:24)
--- NOTE | 2017-07-05 05:04 | CON ---
DATE: This patient was seen and evaluated earlier. HISTORY OF PRESENT ILLNESS: This is a 62-year-old patient with history of coronary artery disease status post PCI in 01/2017. The patient had a PCI and stent placement in 10/2016. The patient had a repeat cardiac catheterization done again on 01/30/2017, on Brilinta and aspirin, was found to be anemic. The patient has some rectal bleeding with constipation, on iron supplement for anemia, so the patient was subsequently being followed by Dr. Richard for iron infusion, was found to have a low blood count and was advised to go to the ER. The patient has been complaining of episodes of rectal bleeding for the last two weeks more than before. No history of any melena. No history of vomiting blood. She had a history of rectal bleeding before and she had an endoscopy and a colonoscopy done in [address] King, was found to have hemorrhoids - both internal and external hemorrhoids and gastritis. The patient has been having on and off episodes of bleeding, nothing significant like recently. This bleeding problem becomes more complicated because of this PCI and she has been started on Brilinta. PAST MEDICAL HISTORY: Other past medical history is significant as above. ALLERGIES: NO KNOWN DRUG ALLERGIES. SOCIAL HISTORY: Denies smoking or alcohol. REVIEW OF SYSTEMS: Positive as above. Other systems are reviewed. PHYSICAL EXAMINATION GENERAL: The patient is lying in the bed, not in acute distress. VITAL SIGNS: Temperature is 97.8, pulse is 71, blood pressure 125/65, and respirations 16. HEENT: Atraumatic, anicteric. NECK: Supple. HEART: S1, S2 heard. LUNGS: Bilateral air entry present. ABDOMEN: Soft. There is no mass palpable. No tenderness. EXTREMITIES: No edema, no cyanosis. RECTAL: Examination was deferred. The patient mentioned to me this was done before and told to have hemorrhoids. LABORATORY DATA: Hemoglobin is 6.5, hematocrit 21.7, WBC is 4.1, and platelets 250. Chemistry is essentially unremarkable. IMPRESSION: This is a 62-year-old patient with a history of coronary artery disease status post placement of the stent in 10/2016. The patient had a repeat cardiac catheterization done in 01/2017, now admitted with severe anemia, more episodes of bleeding for the last two weeks. The patient has been on intravenous iron by Dr. Jose Manuel . The concern now we have is that the patient says that she is losing blood from the gastrointestinal system most likely, and the patient needs to be on Brilinta because of the drug-eluting stent. I did discuss with Dr. Pizano at length. The reasonable thing is to closely monitor the hemoglobin and hematocrit and transfuse to keep the hematocrit around 30. The patient would benefit from diagnostic esophagogastroduodenoscopy and colonoscopy. We will discuss with Cardiology also prior to that. We will continue to closely monitor care and suggest further management based on the clinical course. Jack Pa MD
[2017-07-05] MEDS: Pantoprazole 40 mg EC Tab PO SCH (05:46)
[2017-07-05 07:11] LABS: BASO # 0.01 K/mm3 (0.0-2.0); BASO % 0.2 % (0.0-3.0); EOS # 0.2 (0.0-0.7); GRAN # 4.23 (1.4-6.5); GRAN % 73.4 % (50.0-68.0); HEMATOCRIT 26.7 % (42.0-52.0); LYMPH # 0.9 (1.2-3.4); LYMPH % 15.6 % (22.0-35.0); MEAN CORPUSCULAR HEMOGLOBIN 22.7 pg (25.0-35.0); MEAN CORPUSCULAR HGB CONC 30.7 g/dl (31.0-37.0); MEAN PLATELET VOLUME 9.8 fl (7.0-11.0); MONO # 0.5 (0.1-0.6); MONO % 7.8 % (1.0-6.0); RED CELL DISTRIBUTION WIDTH 18.6 % (11.5-14.5); WHITE BLOOD COUNT 5.8 10^3/ul (4.5-11.0)
[2017-07-05 07:16] LABS: ALB/GLOB RATIO 1.1 (1.1-1.8); ALKALINE PHOSPHATASE 46 U/L (38-126); ALT/SGPT 33 U/L (7-56); AST/SGOT 37 U/L (17-59); BLOOD UREA NITROGEN 11 mg/dL (7-21); CALCIUM 8.9 mg/dL (8.4-10.5); CARBON DIOXIDE 27 mmol/L (21-33); CHLORIDE 111 mmol/L (98-107); GFR AFRICAN-AMERICAN > 60; GLUCOSE,RANDOM 94 mg/dL (70-110); POTASSIUM 4.2 mmol/L (3.6-5.0); SODIUM 142 mmol/L (132-148); TOTAL PROTEIN 6.7 g/dL (5.8-8.3)
--- NOTE | 2017-07-05 08:08 | CP.PCM.PCO ---
Physician Communication Note - Physician Communication Note Physician Communication Note: BRB rectal bleed/[id number]/Brilinta rx-needs EGD-COLONOSCOPY PRE RB hem
--- NOTE | 2017-07-05 08:13 | CP.PCM.PN ---
Subjective - Date & Time of Evaluation Date of Evaluation: 07/05/17 Time of Evaluation: 07:15 - Subjective Subjective: General surgery progress note for Dr. Ross-Yun Glaser, PGY-1 Pt S & E at bedside. Pt reports no BMs overnight, no blood per rectum. No problems overnight, denies F & C, N & V, chest pain, other complaints. Objective - Vital Signs/Intake and Output Vital Signs (last 24 hours): Temp Pulse Resp BP Pulse Ox 97.7 F 71 20 96/55 L 95 07/05/17 06:00 07/05/17 06:00 07/05/17 06:00 07/05/17 06:00 07/05/17 06:00 Intake and Output: 07/05/17 07/05/17 06:59 18:59 Intake Total 865 Output Total 1100 Balance -235 - Medications Medications: Current Medications Atorvastatin Calcium (Lipitor) 40 mg PO HS [facility] Last Admin: 07/04/17 21:25 Dose: 40 mg Sodium Chloride (Sodium Chloride 0.9%) 1,000 mls @ 100 mls/hr IV .Q10H [facility] Last Admin: 07/05/17 02:00 Dose: 100 mls/hr Metoprolol Tartrate (Lopressor) 25 mg PO BID [facility] Last Admin: 07/04/17 17:37 Dose: Not Given Pantoprazole Sodium (Protonix Ec Tab) 40 mg PO 0630 [facility] Last Admin: 07/05/17 05:46 Dose: 40 mg Polyethylene Glycol (Miralax) 17 gm PO BID [facility] - Labs Labs: 07/05/17 06:00 07/05/17 06:00 PT 11.9 SECONDS (9.4-12.5) 07/04/17 11:35 INR 1.08 (0.93-1.08) 07/04/17 11:35 APTT 27.6 Seconds (25.1-36.5) 07/04/17 11:35 - Constitutional Appears: Non-toxic, No Acute Distress - Head Exam Head Exam: ATRAUMATIC, NORMAL INSPECTION, NORMOCEPHALIC - Eye Exam Eye Exam: EOMI, Normal appearance - ENT Exam ENT Exam: Mucous Membranes Moist, Normal Exam - Neck Exam Neck Exam: Full ROM, Normal Inspection - Respiratory Exam Respiratory Exam: NORMAL BREATHING PATTERN - GI/Abdominal Exam GI & Abdominal Exam: Soft. absent: Distended, Firm, Guarding, Tenderness - Neurological Exam Neurological Exam: Alert, Awake, CN II-XII Intact, Oriented x3 - Psychiatric Exam Psychiatric exam: Normal Affect, Normal Mood - Skin Skin Exam: Dry, Intact, Normal Color, Warm Assessment and Plan - Assessment and Plan (Free Text) Assessment: 62M w/GI bleed & hemorrhoids s/p blood transfusion x 2, no current GI bleeding; GI recs for possible EGD/C-scope Plan: Monitor H/H Cont CLD GI following Further recs as per Dr. Cody MACKEY attending Glaser, PGY-3
[2017-07-05] MEDS: POLYETHYLENE GLYCOL 3350 17 GM/Dose PACKET PO SCH ×2 (09:49→18:11)
--- NOTE | 2017-07-05 11:28 | CON ---
DATE: 07/05/2017 CONSULT REQUESTED BY: Rand Pizano MD REASON FOR CONSULTATION: Severe anemia and gastrointestinal bleed. HISTORY OF PRESENT ILLNESS: Mr. Newton is a 62-year-old male who was seen in the office yesterday for severe anemia, hemoglobin was found to be 6.9 g/dL, he was advised to come to the hospital for further management. He had recent myocardial infarction and underwent recent angioplasty. He has history of chronic rectal bleeding likely from hemorrhoid. He had colonoscopy done in 2013, which was negative for mass or lesion. He continues to have bleeding frequently. He has shortness of breath on exertion and fatigue. He denies any abdominal pain. CABG and recent angioplasty. Currently on Brilinta. PAST MEDICAL HISTORY: 1. Chronic anemia. 2. Chronic rectal bleeding. 3. Coronary artery disease. 4. B12 deficiency. 5. Cardiomyopathy, ejection fraction of 30%. PAST SURGICAL HISTORY: Angioplasty. ALLERGIES: NO KNOWN DRUG ALLERGIES. HOME MEDICATIONS: Lipitor 40 mg daily, Brilinta 90 mg twice a day, Clarinex p.r.n., Zocor 40 mg daily, and metoprolol 25 twice a day. SOCIAL HISTORY: and lives at home. PERSONAL HISTORY: Nonsmoker. No history of alcohol abuse. REVIEW OF SYSTEMS: As per HPI. Rest of 12-point review of systems reviewed and negative. PHYSICAL EXAMINATION GENERAL: Comfortable in bed, in no acute distress. VITAL SIGNS: Afebrile with temperature of 97, respiratory rate of 18 per minute, and blood pressure of 125/60. CARDIOVASCULAR: S1 and S2 normal. No murmur and no gallop. ABDOMEN: Soft and nontender. No hepatosplenomegaly. EXTREMITIES: No edema. CHEST: Air entry present and equal bilateral. No added sound. CENTRAL NERVOUS SYSTEM: Alert and oriented x3. No focal sensory or motor deficits. SKIN: No petechiae and no rash. LABORATORY DATA: White count of 5.8, hemoglobin of 8.2, yesterday was 6.5, hematocrit of 26.7, and platelets of 234. Sodium of 142, potassium of 4.2, creatinine of 0.8, calcium of 8.9, and total bilirubin of 1. AST of 37, ALT of 33, and alkaline phosphatase of 46. Coags normal. ASSESSMENT: 1. Severe anemia. 2. Chronic rectal bleeding. 3. Coronary artery disease, status post recent angioplasty. 4. B12 deficiency. PLAN: He was transfused 2 units of PRBCs yesterday and I will transfuse 2 units of PRBC today. Hemoglobin is 8.2. He has low ejection fraction of 30%, coronary artery disease. He has severe iron deficiency. He will need continuous of IV iron, which can be done as an outpatient. GI consultation, Dr. Pa requested, he will plan EGD and colonoscopy. I will do CEA level with next lab draw. Carolyn is on hold for EGD. Thank you Dr. Pizano for allowing us to participate in Mr. Newton's care. Nery Richard MD MTDIsa
--- NOTE | 2017-07-05 13:29 | PN ---
DATE: 07/05/2017 REASON FOR FOLLOWUP: Covering Dr. Dave Osullivan/Dr. Riley. Dr. Riley asked me to see the patient Dr. Osullivan. History of coronary artery disease, admitted with GI bleed. SUBJECTIVE: Denies any chest pain, shortness of breath, or any palpitation. OBJECTIVE: GENERAL: Lying flat in the bed, states that when he went to the bathroom, he has fresh bright red blood per rectum. No chest pain. VITAL SIGNS: Temperature afebrile. Heart rate 80, blood pressure 111/68. HEENT: Intact. NECK: Supple. No carotid bruit or thyromegaly. CHEST: Clear to auscultation. HEART: S1 and S2, regular. ABDOMEN: Soft. EXTREMITIES: Clubbing and cyanosis negative. LABORATORY DATA: Blood workup as follow: WBC 5.8, hemoglobin 8.2, hematocrit 26.7, platelet count 234. Chemistry shows sodium 140, potassium 4.2, chloride 111, carbon dioxide 26, anion gap of 8, BUN 11, creatinine 0.8. IMPRESSION: Bright red blood per rectum, gastrointestinal bleed, history of anemia, history of coronary artery disease, history of anterior wall myocardial infarction, history of percutaneous transluminal coronary angioplasty of left anterior descending in October of this year, decreased left ventricular function. So far, no evidence of acute myocardial infarction, no evidence of acute coronary artery syndrome, bright red blood per rectum. RECOMMENDATIONS: Hold aspirin and Plavix, because . Continue beta-yury. Continue IV fluid. Keep hemoglobin around 10. We will follow with you. Overall LV function is preserved 50% on last cath 01/30/2017, when the patient presented with anginal symptom. Recommendation as mentioned. Continue IV fluid, monitor I's and O's, keep hemoglobin at 10. We will follow closely. Continue beta-yury. Continue atorvastatin. We will transfer care on Friday to Dr. Dave Osullivan. Gustavo Batista MD
--- NOTE | 2017-07-05 20:02 | PN ---
DATE: 07/05/2017 SUBJECTIVE: This patient was seen and evaluated earlier today. The patient still had episodes of bleeding, bright red blood per rectum with the bowel movement this morning. The patient did receive blood transfusion yesterday. The patient is still on Brilinta. PHYSICAL EXAMINATION: VITAL SIGNS: Temperature 98.5, pulse 57, blood pressure 106/70 and respirations 16. HEENT: Atraumatic. Anicteric. NECK: Supple. HEART: S1 and S2 heard. LUNGS: Bilateral air entry present. ABDOMEN: Soft. There is no mass. No tenderness. EXTREMITIES: No edema. No cyanosis. LABORATORY DATA: Hemoglobin 8.2, hematocrit 26.7, WBC 5.8 and platelets 234. Chemistry is essentially unremarkable. B12 level is low 199. IMPRESSION: This 62-year-old patient with coronary artery disease status post percutaneous coronary intervention in 10/2016 had a drug-eluting stent placement on Brilinta and aspirin. The patient admitted with severe anemia. The patient has a history of bleeding per rectum, more perfused by the last 2 weeks prior to the admission. The patient is being followed by Dr. 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 The patient still continues to have some bright red blood per rectum. The concern is the ongoing bleeding. Since the patient has drug-eluting stent, the concern is stopping this antiplatelet therapy. I did discuss with Dr. Pizano. We will also discuss with commercial portfolio manager. PLAN: Continue to monitor the blood count and if there is an active ongoing bleeding, then we may have to consider diagnostic endoscopic evaluation and if the patient's bleeding stopped and stable, then it can be done as an outpatient, if it is active ongoing, we will consider during this admission. Any episodes of sever bleeding then we will cut-up bleeding scan. The patient also will continue empirical PPI therapy. The patient did have an endoscopy and colonoscopy in 2013 had only hemorrhoids and gastritis at that time. I did discuss with the patient today. The patient is still on clear liquid diet. We will continue it. Thank you very much for allowing me to participate in the care of this patient. Jack Pa MD [facility] # [id number]
--- NOTE | 2017-07-05 22:43 | PN ---
DATE: SUBJECTIVE: The patient is a 62-year-old, seen and examined, lying in bed, and complain of feeling very tired. He states legs hurt. He still having bright red rectal bleeding. PHYSICAL EXAMINATION: VITAL SIGNS: He is afebrile, pulse 64, respirations 16, and blood pressure 124/68. LUNGS: Bilateral fair airflow. No rhonchi or crackle. HEART: S1 and S2 audible. ABDOMEN: Soft and nontender. No rebound. No guarding. NEUROLOGIC: He is awake, alert, oriented, and communicative. LABORATORY DATA: The patent received 2 blood transfusions. Followup CBC; WBC 5.8, hemoglobin 8.2, hematocrit 26.7, and platelets 234. Chemistry; sodium 142, potassium 4.2, chloride 111, CO2 of 26, BUN 11, and creatinine 0.8. Blood sugar of 94. ASSESSMENT AND PLAN: 1. Active rectal bleeding. 2. Status post myocardial infarction and angioplasty. 3. Blood loss anemia. 4. History of constipation. 5. Recurrent rectal bleeding secondary to hemorrhoid. He has GI workup done in 2013. Workup was negative. At this point, he will give him packed RBCs. He is off of Brilinta for now. Aspirin has been stopped. Also currently, the patient is on PPI. Dr. Batista and Dr. Ross input noted and appreciated. We will follow up his CBC and CMP in a.m. Rand Pizano MD
[2017-07-06] MEDS: Sodium Chloride 0.9% 1,000 ML IV SCH ×3 (05:00→17:28)
[2017-07-06] MEDS: Pantoprazole 40 mg EC Tab PO SCH (05:55)
[2017-07-06 06:18] LABS: BASO # 0.04 K/mm3 (0.0-2.0); BASO % 0.6 % (0.0-3.0); EOS # 0.3 (0.0-0.7); EOS % 3.7 % (1.5-5.0); GRAN # 4.79 (1.4-6.5); GRAN % 68.2 % (50.0-68.0); LYMPH # 1.1 (1.2-3.4); LYMPH % 15.6 % (22.0-35.0); MEAN CELL VOLUME 77.1 fl (80.0-105.0); MEAN CORPUSCULAR HEMOGLOBIN 24.3 pg (25.0-35.0); MEAN CORPUSCULAR HGB CONC 31.5 g/dl (31.0-37.0); MEAN PLATELET VOLUME 10.3 fl (7.0-11.0); MONO # 0.8 (0.1-0.6); MONO % 11.9 % (1.0-6.0); RED CELL DISTRIBUTION WIDTH 19.5 % (11.5-14.5)
[2017-07-06 06:38] LABS: ALB/GLOB RATIO 1.1 (1.1-1.8); ALKALINE PHOSPHATASE 54 U/L (38-126); ALT/SGPT 46 U/L (7-56); AST/SGOT 39 U/L (17-59); BLOOD UREA NITROGEN 11 mg/dL (7-21); CALCIUM 8.6 mg/dL (8.4-10.5); CARBON DIOXIDE 27 mmol/L (21-33); CHLORIDE 108 mmol/L (95-110); GFR AFRICAN-AMERICAN > 60; GLUCOSE,RANDOM 86 mg/dL (70-110); POTASSIUM 3.5 mmol/L (3.6-5.0); SODIUM 141 mmol/L (132-148); TOTAL PROTEIN 7.1 g/dL (5.8-8.3)
--- NOTE | 2017-07-06 08:15 | CP.PCM.PN ---
<Yun Glaser - Last Filed: 07/06/17 08:12> Subjective - Date & Time of Evaluation Date of Evaluation: 07/06/17 Time of Evaluation: 07:30 - Subjective Subjective: General surgery progress note for Dr. Ross-Yun Glaser, PGY-1 Pt S & E at bedside. Pt reports episode of bloody BM yesterday afternoon. No further episodes of blooding overnight. No other problems/complaints. Objective - Vital Signs/Intake and Output Vital Signs (last 24 hours): Temp Pulse Resp BP Pulse Ox 98.2 F 66 20 100/54 L 99 07/06/17 06:00 07/06/17 06:00 07/06/17 06:00 07/06/17 06:00 07/06/17 06:00 Intake and Output: 07/06/17 07/06/17 06:59 18:59 Intake Total 1680 Balance 1680 - Medications Medications: Current Medications Atorvastatin Calcium (Lipitor) 40 mg PO HS [facility] Last Admin: 07/05/17 21:23 Dose: 40 mg Sodium Chloride (Sodium Chloride 0.9%) 1,000 mls @ 100 mls/hr IV .Q10H [facility] Last Admin: 07/06/17 05:00 Dose: 100 mls/hr Metoprolol Tartrate (Lopressor) 25 mg PO BID [facility] Last Admin: 07/05/17 18:10 Dose: 25 mg Pantoprazole Sodium (Protonix Ec Tab) 40 mg PO 0630 [facility] Last Admin: 07/06/17 05:55 Dose: 40 mg Polyethylene Glycol (Miralax) 17 gm PO BID [facility] Last Admin: 07/05/17 18:11 Dose: 17 gm - Labs Labs: 07/06/17 05:30 07/06/17 05:30 PT 11.9 SECONDS (9.4-12.5) 07/04/17 11:35 INR 1.08 (0.93-1.08) 07/04/17 11:35 APTT 27.6 Seconds (25.1-36.5) 07/04/17 11:35 - Constitutional Appears: Non-toxic, No Acute Distress - Head Exam Head Exam: ATRAUMATIC, NORMAL INSPECTION, NORMOCEPHALIC - Eye Exam Eye Exam: EOMI, Normal appearance - ENT Exam ENT Exam: Mucous Membranes Moist, Normal Exam - Neck Exam Neck Exam: Full ROM, Normal Inspection - Respiratory Exam Respiratory Exam: Clear to Ausculation Bilateral, NORMAL BREATHING PATTERN - Cardiovascular Exam Cardiovascular Exam: REGULAR RHYTHM, +S1, +S2 - GI/Abdominal Exam GI & Abdominal Exam: Soft, Normal Bowel Sounds. absent: Distended, Firm, Guarding, Rigid, Tenderness - Rectal Exam Rectal Exam: NORMAL INSPECTION (scant stool in rectal vault, no nury blood, external hemorrhoids visualized) - Extremities Exam Extremities Exam: Full ROM, Normal Inspection - Back Exam Back Exam: NORMAL INSPECTION - Neurological Exam Neurological Exam: Alert, Awake, CN II-XII Intact, Oriented x3 - Psychiatric Exam Psychiatric exam: Normal Affect, Normal Mood - Skin Skin Exam: Dry, Intact, Normal Color, Warm Assessment and Plan - Assessment and Plan (Free Text) Assessment: 62M w/GI bleed & hemorrhoids with episode of blood per rectum yesterday with BM Plan: Monitor H/H Cont CLD Cont Miralax as per Dr Ross GI recs/following- monitor H/H, will consider EGD if continues to bleed vs. outpt EGD; bleeding scan if continues to bleed, cont CLD Surgical team will DW attending Jailyn, PGY-3 <Sea Ross - Last Filed: 07/07/17 21:31> Objective - Vital Signs/Intake and Output Vital Signs (last 24 hours): Temp Pulse Resp BP Pulse Ox 98 F 86 17 118/68 98 07/07/17 18:00 07/07/17 19:02 07/07/17 18:00 07/07/17 19:02 07/07/17 06:00 - Medications Medications: Current Medications Aspirin (Ecotrin) 81 mg PO DAILY [facility] Last Admin: 07/07/17 09:47 Dose: 81 mg Atorvastatin Calcium (Lipitor) 40 mg PO HS [facility] Last Admin: 07/06/17 22:23 Dose: 40 mg Cyanocobalamin (Vitamin B12 1000 Mcg/Ml Inj) 1,000 mcg IM DAILY [facility] Last Admin: 07/07/17 09:41 Dose: 1,000 mcg Folic Acid (Folic Acid) 1 mg PO DAILY [facility] Last Admin: 07/07/17 09:47 Dose: 1 mg Sodium Chloride (Sodium Chloride 0.9%) 1,000 mls @ 100 mls/hr IV .Q10H [facility] Last Admin: 07/07/17 14:14 Dose: 100 mls/hr Metoprolol Tartrate (Lopressor) 25 mg PO BID [facility] Last Admin: 07/07/17 19:02 Dose: 25 mg Pantoprazole Sodium (Protonix Ec Tab) 40 mg PO 0630 [facility] Last Admin: 07/07/17 05:48 Dose: 40 mg Polyethylene Glycol (Miralax) 17 gm PO BID [facility] Last Admin: 07/07/17 19:02 Dose: Not Given - Labs Labs: 07/07/17 07:00 07/07/17 07:00 PT 11.9 SECONDS (9.4-12.5) 07/04/17 11:35 INR 1.08 (0.93-1.08) 07/04/17 11:35 APTT 27.6 Seconds (25.1-36.5) 07/04/17 11:35 Assessment and Plan - Assessment and Plan (Free Text) Plan: Off Brilinta day 2/Still bleeding Rx 2 more Units PRBC/Miralax BID/Cl liquids Pt will need Colonoscopy If surgically emergent Platelet Rx will be used EGD should be done BUT unlikely source of bleeding Nursing will now record Bowel Movement bleeding This consult done under my supervision Galina Ross MD FACS
[2017-07-06] MEDS: POLYETHYLENE GLYCOL 3350 17 GM/Dose PACKET PO SCH ×2 (09:44→17:24)
[2017-07-06] MEDS ORDERED: Potassium Chloride 20 mEq ER Tab PO ONE (11:18)
--- NOTE | 2017-07-06 15:29 | PN ---
DATE: 07/06/2017 REASON FOR DICTATION: Covering Dr. Dave Osullivan. REASON FOR CONSULTATION: Coronary artery disease, history of anterior wall OK, history of PTCA in October, and admitted with lower GI bleed. SUBJECTIVE: Denies any chest pain, shortness of breath, or any palpitations. OBJECTIVE: GENERAL: Still passing bright red blood per rectum. VITAL SIGNS: Temperature afebrile, heart rate 70, and blood pressure 104/59. HEENT: PERRLA. Extraocular muscles intact. NECK: Supple. No carotid bruits or thyromegaly. CHEST: Clear to auscultation. HEART: S1 and S2 regular. ABDOMEN: Soft. EXTREMITIES: Clubbing or cyanosis negative. LABORATORY DATA: Blood workup as follows; WBC 7, hemoglobin 10.4, hematocrit 33.0, and platelet count 235. Chemistry shows sodium 145, potassium 3.5, chloride 108, carbon dioxide 27, anion gap of 10, BUN 11, and creatinine 0.8. IMPRESSION: Gastrointestinal bleed, bright red blood per rectum, anemia, status post packed red blood cell transfusion, history of anterior wall myocardial infarction, status post probably angioplasty in 10/2016, and preserved left ventricular function. So far, no evidence of acute myocardial infarction. RECOMMENDATIONS: Aspirin and Plavix on hold because of active gastrointestinal bleed, continue beta-yury, continue IV fluid, and keep hemoglobin 10. We will follow with you. Preserved LV function. We will transfer care tomorrow to Dr. Dave Osullivan. Supplement electrolytes and repeat the lab in the morning. Gustavo Batista MD
--- NOTE | 2017-07-06 19:14 | CP.PCM.PN ---
Subjective - Date & Time of Evaluation Date of Evaluation: 07/06/17 Time of Evaluation: 10:00 - Subjective Subjective: DATE: 07/06/2017 HISTORY OF PRESENT ILLNESS: Mr. Newton is a 62-year-old male who was seen in the office yesterday for severe anemia, hemoglobin was found to be 6.9 g/dL, he was advised to come to the hospital for further management. He had recent myocardial infarction and underwent recent angioplasty. He has history of chronic rectal bleeding likely from hemorrhoid. He had colonoscopy done in 2013, which was negative for mass or lesion. He continues to have bleeding frequently. He has shortness of breath on exertion and fatigue. He denies any abdominal pain. recent angioplasty. asprin, Brilanta on hold . continue to have bleeding per rectum. Hb stable today . PAST MEDICAL HISTORY: 1. Chronic anemia. 2. Chronic rectal bleeding. 3. Coronary artery disease. 4. B12 deficiency. 5. Cardiomyopathy, ejection fraction of 30%. PAST SURGICAL HISTORY: Angioplasty. ALLERGIES: NO KNOWN DRUG ALLERGIES. HOME MEDICATIONS: Lipitor 40 mg daily, Brilinta 90 mg twice a day, Clarinex p.r.n., Zocor 40 mg daily, and metoprolol 25 twice a day. SOCIAL HISTORY: and lives at home. PERSONAL HISTORY: Nonsmoker. No history of alcohol abuse. REVIEW OF SYSTEMS: As per HPI. Rest of 12-point review of systems reviewed and negative. PHYSICAL EXAMINATION GENERAL: Comfortable in bed, in no acute distress. VITAL SIGNS: reviewed. CARDIOVASCULAR: S1 and S2 normal. No murmur and no gallop. ABDOMEN: Soft and nontender. No hepatosplenomegaly. EXTREMITIES: No edema. CHEST: Air entry present and equal bilateral. No added sound. CENTRAL NERVOUS SYSTEM: Alert and oriented x3. No focal sensory or motor deficits. SKIN: No petechiae and no rash. LABORATORY DATA: reviewed. ASSESSMENT: 1. Severe anemia. 2. Chronic rectal bleeding. 3. Coronary artery disease, status post recent angioplasty. 4. B12 deficiency. PLAN: He was transfused 2 units of PRBCs yesterday .Hb improved . He has low ejection fraction of 30%, coronary artery disease. Aspirin, brilanta to be resumed. because of recent angioplasty. He has severe iron deficiency. discussed with Dr. Pa . EGD and colonoscopy planned for Friday. B12 1 mg IM daily. Folic acid 1 mg PO Daily. Thank you Dr. Pizano for allowing us to participate in Mr. Newton's care. Nery Richard MD Objective - Vital Signs/Intake and Output Vital Signs (last 24 hours): Temp Pulse Resp BP Pulse Ox 98.9 F 69 20 105/58 L 99 07/06/17 17:28 07/06/17 17:28 07/06/17 17:28 07/06/17 17:28 07/06/17 17:28 Intake and Output: 07/06/17 07/07/17 18:59 06:59 Intake Total 1080 Output Total 2 Balance 1078 - Medications Medications: Current Medications Aspirin (Ecotrin) 81 mg PO DAILY [facility] Last Admin: 07/06/17 12:11 Dose: 81 mg Atorvastatin Calcium (Lipitor) 40 mg PO HS [facility] Last Admin: 07/05/17 21:23 Dose: 40 mg Cyanocobalamin (Vitamin B12 1000 Mcg/Ml Inj) 1,000 mcg IM DAILY [facility] Last Admin: 07/06/17 10:01 Dose: 1,000 mcg Folic Acid (Folic Acid) 1 mg PO DAILY [facility] Last Admin: 07/06/17 10:01 Dose: 1 mg Sodium Chloride (Sodium Chloride 0.9%) 1,000 mls @ 100 mls/hr IV .Q10H [facility] Last Admin: 07/06/17 17:28 Dose: 100 mls/hr Metoprolol Tartrate (Lopressor) 25 mg PO BID [facility] Last Admin: 07/06/17 17:24 Dose: 25 mg Pantoprazole Sodium (Protonix Ec Tab) 40 mg PO 0630 [facility] Last Admin: 07/06/17 05:55 Dose: 40 mg Polyethylene Glycol (Miralax) 17 gm PO BID [facility] Last Admin: 07/06/17 17:24 Dose: 17 gm Ticagrelor (Brilinta) 90 mg PO BID [facility] Last Admin: 07/06/17 17:24 Dose: 90 mg - Labs Labs: 07/06/17 05:30 07/06/17 05:30 PT 11.9 SECONDS (9.4-12.5) 07/04/17 11:35 INR 1.08 (0.93-1.08) 07/04/17 11:35 APTT 27.6 Seconds (25.1-36.5) 07/04/17 11:35
[2017-07-07] MEDS: Sodium Chloride 0.9% 1,000 ML IV SCH ×2 (04:00→14:14)
[2017-07-07] MEDS: Pantoprazole 40 mg EC Tab PO SCH (05:48)
[2017-07-07 07:26] LABS: MEAN CELL VOLUME 78.2 fl (80.0-105.0); MEAN CORPUSCULAR HGB CONC 30.6 g/dl (31.0-37.0); MEAN PLATELET VOLUME 10.3 fl (7.0-11.0); RED CELL DISTRIBUTION WIDTH 20.3 % (11.5-14.5); WHITE BLOOD COUNT 5.5 10^3/ul (4.5-11.0)
[2017-07-07 07:46] LABS: BLOOD UREA NITROGEN 7 mg/dL (7-21); CALCIUM 8.2 mg/dL (8.4-10.5); CARBON DIOXIDE 25 mmol/L (21-33); CHLORIDE 114 mmol/L (98-107); GFR AFRICAN-AMERICAN > 60; GLUCOSE,RANDOM 87 mg/dL (70-110); IRON 18 ug/dL (45-180); POTASSIUM 3.9 mmol/L (3.6-5.0); SODIUM 143 mmol/L (132-148)
--- NOTE | 2017-07-07 08:31 | CP.PCM.PCO ---
Physician Communication Note - Physician Communication Note Physician Communication Note: Still bleeding/Hgb 9.8drop/Gustavo HOLD Brilinta-ASA/ colonoscopy soon
--- NOTE | 2017-07-07 08:47 | CON ---
CARDIOLOGY CONSULTATION DATE: 07/04/2017 REASON FOR CONSULTATION: History of coronary artery disease and acute GI bleeding. HISTORY OF PRESENT ILLNESS: The patient is a 62-year-old male, who has history of coronary artery disease, underwent coronary stenting to the LAD in 2015 after he sustained acute anterior wall myocardial infarction. The most recent cardiac catheterization was in 01/2017, which revealed patent stent to the LAD, was markedly improved left ventricular systolic function from his acute anterior wall infarction. There is also 50% stenosis of the PDA and 50% stenosis of the second diagonal branch and medical therapy was recommended. The patient was admitted because of GI bleeding, which has been on and off for the past one month. The patient is known to have anemia in the past and was placed on iron therapy with questionable blood transfusion in the past, that the patient could not confirm. The patient denies any retrosternal chest pain. SOCIAL HISTORY: Nonsmoker. MEDICATIONS: Brilinta 90 mg once a day, Lipitor 40 mg once a day, Lopressor 25 mg once a day, and Protonix 40 mg p.o. once a day. REVIEW OF SYSTEMS: No hematemesis. No fever or chills. No syncope. PHYSICAL EXAMINATION: GENERAL: The patient is a middle-aged male, who does not appear to be in acute distress. VITAL SIGNS: Blood pressure 125/65, heart rate 71, temperature 97.8, and respirations 16. HEENT: Pale conjunctivae. CHEST: Clear. HEART: S1 and S2 regular. EXTREMITIES: No edema. LABORATORY DATA: Hemoglobin and hematocrit 6.5 and 21.7 respectively, white count and platelet count are 4.1 and 250,000 respectively. SMA-7 is within normal limits except for creatinine of 0.7. One set of troponin is negative. PT, PTT, and INR are within normal limits. EKG revealed normal sinus rhythm with poor R wave progression. ASSESSMENT: 1. Coronary artery disease, status post coronary stenting in 04/2016. 2. Rectal bleeding. 3. Severe anemia. RECOMMENDATIONS: Discontinue Brilinta for now. As per records, the stent is more than one year ago. Continue Lipitor and Protonix. Continue the baby aspirin if cleared by engagement manager. The patient is currently receiving packed RBC transfusion and will be monitored for any signs of volume overload. Luis Daniel Riley MD
--- NOTE | 2017-07-07 09:05 | CP.PCM.PN ---
<Deshawn Hector - Last Filed: 07/07/17 08:47> Subjective - Date & Time of Evaluation Date of Evaluation: 07/07/17 Time of Evaluation: 08:48 - Subjective Subjective: PGY1 General Surgery Note for Dr. Ross Patient seen and examined this morning at bedside. No acute events overnight. Patient still reports blood in the toilet bowl with bowel movements. Patient has no other complaints at this time. Denies fevers, chills, nausea or vomiting. Objective - Vital Signs/Intake and Output Vital Signs (last 24 hours): Temp Pulse Resp BP Pulse Ox 97.6 F 69 20 95/58 L 98 07/07/17 06:00 07/07/17 06:00 07/07/17 06:00 07/07/17 06:00 07/07/17 06:00 Intake and Output: 07/07/17 07/07/17 06:59 18:59 Intake Total 1300 Output Total 0 Balance 1300 - Medications Medications: Current Medications Aspirin (Ecotrin) 81 mg PO DAILY [facility] Last Admin: 07/06/17 12:11 Dose: 81 mg Atorvastatin Calcium (Lipitor) 40 mg PO HS [facility] Last Admin: 07/06/17 22:23 Dose: 40 mg Cyanocobalamin (Vitamin B12 1000 Mcg/Ml Inj) 1,000 mcg IM DAILY [facility] Last Admin: 07/06/17 10:01 Dose: 1,000 mcg Folic Acid (Folic Acid) 1 mg PO DAILY [facility] Last Admin: 07/06/17 10:01 Dose: 1 mg Sodium Chloride (Sodium Chloride 0.9%) 1,000 mls @ 100 mls/hr IV .Q10H [facility] Last Admin: 07/07/17 04:00 Dose: 100 mls/hr Metoprolol Tartrate (Lopressor) 25 mg PO BID [facility] Last Admin: 07/06/17 17:24 Dose: 25 mg Pantoprazole Sodium (Protonix Ec Tab) 40 mg PO 0630 [facility] Last Admin: 07/07/17 05:48 Dose: 40 mg Polyethylene Glycol (Miralax) 17 gm PO BID [facility] Last Admin: 07/06/17 17:24 Dose: 17 gm Ticagrelor (Brilinta) 90 mg PO BID [facility] Last Admin: 07/06/17 17:24 Dose: 90 mg - Labs Labs: 07/07/17 07:00 07/07/17 07:00 PT 11.9 SECONDS (9.4-12.5) 07/04/17 11:35 INR 1.08 (0.93-1.08) 07/04/17 11:35 APTT 27.6 Seconds (25.1-36.5) 07/04/17 11:35 - Constitutional Appears: Non-toxic, No Acute Distress - Head Exam Head Exam: ATRAUMATIC, NORMOCEPHALIC - Eye Exam Eye Exam: EOMI, Normal appearance - ENT Exam ENT Exam: Mucous Membranes Moist - Respiratory Exam Respiratory Exam: NORMAL BREATHING PATTERN. absent: Accessory Muscle Use, Respiratory Distress - Cardiovascular Exam Cardiovascular Exam: REGULAR RHYTHM - GI/Abdominal Exam GI & Abdominal Exam: Soft. absent: Distended, Firm, Guarding, Rigid, Tenderness - Extremities Exam Extremities Exam: absent: Calf Tenderness, Pedal Edema - Neurological Exam Neurological Exam: Alert, Awake, Oriented x3 - Psychiatric Exam Psychiatric exam: Normal Affect, Normal Mood - Skin Skin Exam: Dry, Warm Assessment and Plan - Assessment and Plan (Free Text) Assessment: 62M w/GI bleed & hemorrhoids with episodes of blood per rectum with BM Plan: Monitor H/H, rec hold Brilinta-ASA Cont CLD Cont Miralax as per Dr Ross GI recs/following- colonoscopy tentatively scheduled for early this week Case discussed with Dr. Cody Hess Krunal PGY1 <Sea Ross - Last Filed: 07/08/17 07:13> Objective - Vital Signs/Intake and Output Vital Signs (last 24 hours): Temp Pulse Resp BP Pulse Ox 98.3 F 57 L 18 103/53 L 99 07/08/17 06:00 07/08/17 06:00 07/08/17 06:00 07/08/17 06:00 07/08/17 06:00 Intake and Output: 07/08/17 07/08/17 06:59 18:59 Intake Total 1200 Output Total 500 Balance 700 - Medications Medications: Current Medications Aspirin (Ecotrin) 81 mg PO DAILY [facility] Last Admin: 07/07/17 09:47 Dose: 81 mg Atorvastatin Calcium (Lipitor) 40 mg PO HS [facility] Last Admin: 07/07/17 21:46 Dose: 40 mg Cyanocobalamin (Vitamin B12 1000 Mcg/Ml Inj) 1,000 mcg IM DAILY [facility] Last Admin: 07/07/17 09:41 Dose: 1,000 mcg Folic Acid (Folic Acid) 1 mg PO DAILY [facility] Last Admin: 07/07/17 09:47 Dose: 1 mg Sodium Chloride (Sodium Chloride 0.9%) 1,000 mls @ 100 mls/hr IV .Q10H [facility] Last Admin: 07/07/17 14:14 Dose: 100 mls/hr Metoprolol Tartrate (Lopressor) 25 mg PO BID [facility] Last Admin: 07/07/17 19:02 Dose: 25 mg Pantoprazole Sodium (Protonix Ec Tab) 40 mg PO 0630 [facility] Last Admin: 07/08/17 05:43 Dose: 40 mg Polyethylene Glycol (Miralax) 17 gm PO BID [facility] Last Admin: 07/07/17 19:02 Dose: Not Given - Labs Labs: 07/08/17 06:00 07/07/17 07:00 PT 11.9 SECONDS (9.4-12.5) 07/04/17 11:35 INR 1.08 (0.93-1.08) 07/04/17 11:35 APTT 27.6 Seconds (25.1-36.5) 07/04/17 11:35 Assessment and Plan - Assessment and Plan (Free Text) Plan: Brilinta discontinued/Bleeding slowinf/Hgb 10.4 Plan Colonoscopy/EGD tomorrow(Prep per GI) Galina Ross MD FACS
[2017-07-07] MEDS: POLYETHYLENE GLYCOL 3350 17 GM/Dose PACKET PO SCH ×2 (09:40→19:02)
--- NOTE | 2017-07-07 10:06 | PN ---
DATE: 07/06/2017 SUBJECTIVE: This patient was seen and evaluated earlier today. The patient has bowel movements. His bleeding is slowly subsiding. He was staying on liquid diet. PHYSICAL EXAMINATION: VITAL SIGNS: Temperature is 98.9, pulse 69, blood pressure 105/58. HEENT: Atraumatic, anicteric. NECK: Supple. HEART: S1 and S2 heard. LUNGS: Bilateral air entry present. ABDOMEN: Soft. There is no mass palpable. No tenderness. EXTREMITIES: No edema, no cyanosis. LABORATORY DATA: Hemoglobin 10.4, hematocrit 33, WBC 7, and platelets 235. BUN 11, creatinine 0.8. IMPRESSION: This 62-year-old patient with coronary artery disease, status post percutaneous coronary intervention and stent placement in 10/2016. The patient has been on Brilinta and also aspirin. The patient has significant amount of bleeding. Hemoglobin was 6.5 at the time of admission. He had worsening of the bleeding for the last 2 weeks. The patient has a drug-eluting stent. It is reasonable to do diagnostic endoscopy and colonoscopy if it is agreeable with Cardiology. The patient got an endoscopy and colonoscopy in 2013, was found to have only internal hemorrhoids and also gastritis. I have detailed discussion with Dr. Richard today. At that time, the plan was to check with Cardiology and consider restarting the Brilinta and aspirin with a close followup. We will consider EGD and colonoscopy, diagnostic workup if the patient remains stable with no bleeding from the anticoagulation. Thank you, we will continue to closely follow up his care and suggest further management based on the clinical course. Jack Pa MD
--- NOTE | 2017-07-07 11:56 | CP.PCM.PCO ---
Physician Communication Note - Physician Communication Note Physician Communication Note: Still bleeding(?less):T/X 2 UPRBC am pre colonoscopy
--- NOTE | 2017-07-07 12:56 | PN ---
CARDIOLOGY FOLLOWUP DATE: 07/07/2017 SUBJECTIVE: The patient had an episode of bright red blood this morning. PHYSICAL EXAMINATION: VITAL SIGNS: Blood pressure is 109/56 and heart rate in the 60s. NECK: Negative JVD. LUNGS: Without rales. HEART: S1 and S2. EXTREMITIES: Without edema. LABORATORY DATA: BUN and creatinine are unremarkable. The hemoglobin is 9.8. IMPRESSION: 1. Lower gastrointestinal bleed. 2. Marked anemia. 3. History of an old anterior wall myocardial infarction. 4. History of percutaneous transluminal coronary angioplasty and stent on dual antiplatelet therapy. 5. Hypercholesterolemia. PLAN: Given these findings, we will hold the Brilinta for now. The patient is for GI workup in the morning. We will reconsider when to restart or the need to continue Brilinta once his GI workup is complete. Dave Osullivan MD
[2017-07-07] MEDS ORDERED: Peg-Electrolyte Oral Soln 4L (Golytely) PO ONE (14:00)
--- NOTE | 2017-07-07 14:22 | PN ---
DATE: SUBJECTIVE: The patient is a 62-year-old who came in with rectal bleeding and he has symptomatic anemia. The patient recently had angioplasty done in 10/2016. He received 3 blood transfusions, has been on clear liquids, still has rectal bleeding, although it has come down somewhat. Plan is for colonoscopy and endoscopy tomorrow. His Brilinta and aspirin is being held and discussed with Dr. Osullivan. PHYSICAL EXAMINATION: GENERAL: He is awake, alert, oriented, and communicative. VITAL SIGNS: He is afebrile, pulse 69, respirations 20, and blood pressure 109/56. LUNGS: Bilateral fair airflow. No rhonchi or crackles. HEART: S1 and S2 audible. ABDOMEN: Soft and nontender. No rebound. No guarding. NEUROLOGIC: He is awake, alert, oriented, and communicative. Moves all extremities. LABORATORY DATA: WBC is 5.5, hemoglobin is 9.8, hematocrit is 32, and platelet of 219. Chemistry; sodium 143, potassium 3.9, chloride 114, CO2 of 25, BUN 7, creatinine 0.8, and blood sugar of 85. ASSESSMENT: 1. Symptomatic anemia. 2. Rectal bleeding. 3. Recent angioplasty in 10/2016. 4. B12 deficiency. 5. Hyperlipidemia. PLAN: He is being prepped for colonoscopy and endoscopy tomorrow. We will continue him on PPI. I will give him a dose of vitamin B12. We will follow up his H and H in a.m. Rand Pizano MD
--- NOTE | 2017-07-07 20:11 | PN ---
DATE: 07/07/2017 SUBJECTIVE: This patient was seen and evaluated earlier today. The patient still have episodes of bleeding per rectum. The patient is back on Brilinta and also aspirin. On clear liquid diet. PHYSICAL EXAMINATION VITAL SIGNS: Temperature 98.1, pulse 57, and blood pressure 112/69. HEENT: Atraumatic, anicteric. NECK: Supple. HEART: S1 and S2 heard. LUNGS: Bilateral air entry present. ABDOMEN: Soft. There is no tenderness. EXTREMITIES: No edema. No cyanosis. NEUROLOGIC: Alert and oriented. Moves all the extremities. LABORATORY DATA: Hemoglobin 9.8, hematocrit 32, WBC 5.5, and platelets 215. BUN 7, creatinine 0.8. IMPRESSION: This is a 62-year-old patient with a coronary artery disease, status post percutaneous coronary intervention, on Brilinta and aspirin, presented with a severe anemia of 6.5. He has been worsening of the rectal bleeding over the past few weeks. The patient is also followed by Dr. Richard, [employer] Crew Supervisor and advised to go the ER because of the low blood count. He had a status post transfusion. The patient still has episodes of bleeding. The patient had a last percutaneous coronary intervention stent was in the 10/2016. The patient also has a history of B12 deficiency. The patient had a colonoscopy and endoscopy in 2013, he was found to have a gastritis and hemorrhoids. It is reasonable to consider diagnostic EGD and a colonoscopy in view of this recent stent, on Brilinta and aspirin. We will recommend further evaluation based on the clinical course. Would also consider, CT of the abdomen and pelvis with p.o. and IV contrast, which will consider after reviewing the endoscopy and colonoscopic evaluation if needed. The patient is scheduled for an EGD and colonoscopy tomorrow. Thank you very much for allowing us to participate in the care of the patient. Jack aP MD
[2017-07-08] MEDS: Pantoprazole 40 mg EC Tab PO SCH (05:43)
[2017-07-08 06:31] LABS: BASO # 0.02 K/mm3 (0.0-2.0); BASO % 0.4 % (0.0-3.0); EOS # 0.2 (0.0-0.7); EOS % 4.3 % (1.5-5.0); GRAN # 3.74 (1.4-6.5); GRAN % 70.4 % (50.0-68.0); HEMATOCRIT 30.2 % (42.0-52.0); LYMPH # 0.8 (1.2-3.4); LYMPH % 14.9 % (22.0-35.0); MEAN CELL VOLUME 78.2 fl (80.0-105.0); MEAN CORPUSCULAR HEMOGLOBIN 24.1 pg (25.0-35.0); MEAN CORPUSCULAR HGB CONC 30.8 g/dl (31.0-37.0); MEAN PLATELET VOLUME 9.8 fl (7.0-11.0); MONO # 0.5 (0.1-0.6); RED CELL DISTRIBUTION WIDTH 20.7 % (11.5-14.5); WHITE BLOOD COUNT 5.3 10^3/ul (4.5-11.0)
[2017-07-08 06:41] LABS: ALB/GLOB RATIO 1.1 (1.1-1.8); ALKALINE PHOSPHATASE 52 U/L (38-126); ALT/SGPT 40 U/L (7-56); AST/SGOT 30 U/L (17-59); BLOOD UREA NITROGEN 6 mg/dL (7-21); CALCIUM 8.3 mg/dL (8.4-10.5); CARBON DIOXIDE 26 mmol/L (21-33); CHLORIDE 114 mmol/L (95-110); GFR AFRICAN-AMERICAN > 60; GLUCOSE,RANDOM 81 mg/dL (70-110); POTASSIUM 3.9 mmol/L (3.6-5.0); SODIUM 144 mmol/L (132-148); TOTAL PROTEIN 6.2 g/dL (5.8-8.3)
--- NOTE | 2017-07-08 07:17 | CP.PCM.PCO ---
Physician Communication Note - Physician Communication Note Physician Communication Note: Hgb 9.4(dropping):Colonoscopy-EGD 2PM today
[2017-07-08 07:20] LABS: BILIRUBIN,TOTAL 0.8 mg/dL (0.2-1.3)
[2017-07-08] MEDS ORDERED: Midazolam 2 MG/2 ML VIAL ONE (10:56)
[2017-07-08] MEDS ORDERED: Etomidate 20 mg/10ml Inj IV ONE ×2 (11:20→11:21)
[2017-07-08] MEDS: POLYETHYLENE GLYCOL 3350 17 GM/Dose PACKET PO SCH ×2 (12:13→18:57)
--- NOTE | 2017-07-08 13:46 | CP.PCM.PN ---
Subjective - Date & Time of Evaluation Date of Evaluation: 07/08/17 Time of Evaluation: 07:05 - Subjective Subjective: PGY1 General Surgery Note for Dr. Ross Patient seen and examined this morning at bedside. No acute events overnight. Patient denies bloody bowel movements this morning. Denies fevers, chills, nausea, vomiting, SOB, and CP. Objective - Vital Signs/Intake and Output Vital Signs (last 24 hours): Temp Pulse Resp BP Pulse Ox 97.7 F 64 15 111/62 98 07/08/17 12:24 07/08/17 12:24 07/08/17 12:24 07/08/17 12:24 07/08/17 12:24 Intake and Output: 07/08/17 07/08/17 06:59 18:59 Intake Total 1200 Output Total 500 Balance 700 - Medications Medications: Current Medications Aspirin (Ecotrin) 81 mg PO DAILY [facility] Last Admin: 07/08/17 12:12 Dose: Not Given Atorvastatin Calcium (Lipitor) 40 mg PO HS [facility] Last Admin: 07/07/17 21:46 Dose: 40 mg Cyanocobalamin (Vitamin B12 1000 Mcg/Ml Inj) 1,000 mcg IM DAILY [facility] Last Admin: 07/08/17 12:13 Dose: Not Given Folic Acid (Folic Acid) 1 mg PO DAILY [facility] Last Admin: 07/08/17 12:12 Dose: Not Given Sodium Chloride (Sodium Chloride 0.9%) 1,000 mls @ 100 mls/hr IV .Q10H [facility] Metoprolol Tartrate (Lopressor) 25 mg PO BID [facility] Last Admin: 07/08/17 12:12 Dose: Not Given Pantoprazole Sodium (Protonix Ec Tab) 40 mg PO 0630 [facility] Last Admin: 07/08/17 05:43 Dose: 40 mg Polyethylene Glycol (Miralax) 17 gm PO BID [facility] Last Admin: 07/08/17 12:13 Dose: Not Given - Labs Labs: 07/08/17 06:00 07/08/17 06:00 PT 11.9 SECONDS (9.4-12.5) 07/04/17 11:35 INR 1.08 (0.93-1.08) 07/04/17 11:35 APTT 27.6 Seconds (25.1-36.5) 07/04/17 11:35 - Constitutional Appears: Non-toxic, No Acute Distress - Head Exam Head Exam: ATRAUMATIC, NORMOCEPHALIC - Eye Exam Eye Exam: EOMI, Normal appearance - ENT Exam ENT Exam: Mucous Membranes Moist - Respiratory Exam Respiratory Exam: NORMAL BREATHING PATTERN. absent: Accessory Muscle Use, Respiratory Distress - Cardiovascular Exam Cardiovascular Exam: REGULAR RHYTHM - GI/Abdominal Exam GI & Abdominal Exam: Soft. absent: Distended, Firm, Guarding, Rigid, Tenderness - Extremities Exam Extremities Exam: Normal Inspection - Neurological Exam Neurological Exam: Alert, Awake - Psychiatric Exam Psychiatric exam: Normal Affect, Normal Mood - Skin Skin Exam: Dry, Intact, Warm Assessment and Plan - Assessment and Plan (Free Text) Assessment: 62M w/GI bleed & hemorrhoids Plan: - Monitor H/H, rec hold Brilinta-ASA - Continue CLD - Continue Miralax - GI recs/following, colonoscopy/EGD planned for today - d/w Dr. Cody Jamison, PGY-2 Surgery
--- NOTE | 2017-07-08 14:26 | PN ---
DATE: 07/08/2017 SUBJECTIVE: The patient is a 62-year-old, had endoscopy and colonoscopy done, seems to be unremarkable except hemorrhoid. PHYSICAL EXAMINATION: VITAL SIGNS: He is afebrile, pulse is 64, respirations are 15, and blood pressure is 111/62. LUNGS: Bilateral fair airflow. No rhonchi or crackle. HEART: S1 and S2, audible. ABDOMEN: Soft and nontender. No rebound. No guarding. NEUROLOGICAL: The patient is awake, alert, oriented, and communicative. LABORATORY DATA: WBC is 5.3, hemoglobin is 9.3, hematocrit is 30, and platelets of 208. Chemistry: Sodium of 144, potassium of 3.9, chloride of 114, CO2 of 26, BUN of 6, creatinine of 0.8, and blood sugar of 81. ASSESSMENT: 1. Symptomatic anemia. 2. Status post rectal bleeding secondary to hemorrhoid. 3. Status post endoscopy and colonoscopy. 4. Coronary artery disease, status post myocardial infarction in 10/2016. 5. Chronic constipation. PLAN: The patient will be restarted on aspirin 81 daily. He will continue on folic acid. He is on statin and metoprolol. Will continue him on MiraLax 17 grams twice a day. We will discontinue his IV fluid. He will be started on regular diet. He also has B12 deficiency, for that he is receiving B12 everyday. We will discuss with Dr. Osullivan, probably we will start him on low-dose of Brilinta and followup his hemoglobin and hematocrit and he will follow with Dr. Card to have his hemorrhoid ligation done as an outpatient. Rand Pizano MD
--- NOTE | 2017-07-08 18:13 | PN ---
DATE: 07/08/2017 CARDIOLOGY FOLLOWUP SUBJECTIVE: The patient is comfortable in bed without shortness of breath, without chest pain. PHYSICAL EXAMINATION: VITAL SIGNS: Blood pressure 111/62, heart rates in the 60s. NECK: Negative JVD. LUNGS: Without rales. HEART: With S1, S2. EXTREMITIES: Without edema. LABORATORY DATA: The hemoglobin is stable at 9.3. Chemistries unremarkable. IMPRESSION: 1. Likely hemorrhoidal gastrointestinal bleed. 2. History of [id number] myocardial infarction in the past. 3. History of drug-eluting stents placed in the coronary arteries. 4. History of hypercholesterolemia. PLAN: Given these findings, we will restart the patient on his Brilinta at 60 mg b.i.d. Dave Osullivan MD
[2017-07-08 18:31] VITALS: RESP 20
[2017-07-08] MEDS: Sodium Chloride 0.9% 1,000 ML IV SCH (21:50)
[2017-07-09] MEDS: Sodium Chloride 0.9% 1,000 ML IV SCH ×2 (05:51→08:19)
[2017-07-09] MEDS: Pantoprazole 40 mg EC Tab PO SCH (05:51)
[2017-07-09] MEDS ORDERED: Barium Sulfate Susp 2.1% w/v, 2.0% w/w 450 mL Bottle PO ONE (07:07)
[2017-07-09 07:38] VITALS: O2SAT 96
[2017-07-09] MEDS: POLYETHYLENE GLYCOL 3350 17 GM/Dose PACKET PO SCH (10:02)
[2017-07-09] MEDS ORDERED: Iohexol 350 MG/100 ML VIAL ONE (10:27)
--- NOTE | 2017-07-09 11:29 | CT ---
PROCEDURE: CT Abdomen and Pelvis with contrast HISTORY: anemia.gi bleed COMPARISON: None. TECHNIQUE: Contrast dose: 100 cc of Omni 350 Radiation dose: Total exam DLP = 334 mGy-cm. This CT exam was performed using one or more of the following dose reduction techniques: Automated exposure control, adjustment of the mA and/or kV according to patient size, and/or use of iterative reconstruction technique. FINDINGS: LOWER THORAX: Small pleural effusions LIVER: Unremarkable. No gross lesion or ductal dilatation. GALLBLADDER AND BILE DUCTS: Unremarkable. PANCREAS: Unremarkable. No gross lesion or ductal dilatation. SPLEEN: Unremarkable. ADRENALS: Unremarkable. No mass. KIDNEYS AND URETERS: Unremarkable. No hydronephrosis. No solid mass. VASCULATURE: Unremarkable. No aortic aneurysm. BOWEL: Unremarkable. No obstruction. No gross mural thickening. The stomach is distended and filled with food debris. This could be secondary to gastroparesis or partial obstruction. The duodenum is normal in caliber. The small bowel and colon are normal in caliber. APPENDIX: Normal appendix. PERITONEUM: Unremarkable. No free fluid. No free air. LYMPH NODES: Unremarkable. No enlarged lymph nodes. BLADDER: Unremarkable. REPRODUCTIVE: Unremarkable. BONES: No acute fracture. OTHER FINDINGS: None. IMPRESSION: The stomach is distended and filled with food debris. This could be secondary to gastroparesis or partial obstruction. The duodenum is normal in caliber. The small bowel and colon are normal in caliber.
[2017-07-09 12:10] LABS: BASO # 0.01 K/mm3 (0.0-2.0); BASO % 0.2 % (0.0-3.0); EOS # 0.1 (0.0-0.7); EOS % 2.1 % (1.5-5.0); GRAN # 4.85 (1.4-6.5); GRAN % 79.1 % (50.0-68.0); HEMATOCRIT 31.9 % (42.0-52.0); LYMPH # 0.6 (1.2-3.4); LYMPH % 10.4 % (22.0-35.0); MEAN CELL VOLUME 78.2 fl (80.0-105.0); MEAN CORPUSCULAR HEMOGLOBIN 24.3 pg (25.0-35.0); MEAN PLATELET VOLUME 10.3 fl (7.0-11.0); MONO # 0.5 (0.1-0.6); MONO % 8.2 % (1.0-6.0); RED CELL DISTRIBUTION WIDTH 20.8 % (11.5-14.5); WHITE BLOOD COUNT 6.1 10^3/ul (4.5-11.0)
--- NOTE | 2017-07-09 13:34 | CP.PCM.PN ---
Subjective - Date & Time of Evaluation Date of Evaluation: 07/09/17 Time of Evaluation: 13:30 - Subjective Subjective: General Surgery Progress Note for Thispatient was seen and examined this Am at bedside.no acute events overnight. Patient reports no morebloody bowel movements. Denies fevers chills chest pain nausea vomiting. Objective - Vital Signs/Intake and Output Vital Signs (last 24 hours): Temp Pulse Resp BP Pulse Ox 98 F 78 20 112/62 96 07/09/17 06:00 07/09/17 10:02 07/09/17 06:00 07/09/17 10:02 07/09/17 06:00 Intake and Output: 07/09/17 07/09/17 06:59 18:59 Intake Total 300 Balance 300 - Medications Medications: Current Medications Aspirin (Ecotrin) 81 mg PO DAILY [facility] Last Admin: 07/09/17 10:02 Dose: 81 mg Atorvastatin Calcium (Lipitor) 40 mg PO HS [facility] Last Admin: 07/08/17 21:47 Dose: 40 mg Cyanocobalamin (Vitamin B12 1000 Mcg/Ml Inj) 1,000 mcg IM DAILY [facility] Last Admin: 07/09/17 10:02 Dose: 1,000 mcg Folic Acid (Folic Acid) 1 mg PO DAILY [facility] Last Admin: 07/09/17 10:02 Dose: 1 mg Sodium Chloride (Sodium Chloride 0.9%) 1,000 mls @ 100 mls/hr IV .Q10H [facility] Last Admin: 07/09/17 08:19 Dose: Not Given Metoprolol Tartrate (Lopressor) 25 mg PO BID [facility] Last Admin: 07/09/17 10:02 Dose: 25 mg Pantoprazole Sodium (Protonix Ec Tab) 40 mg PO 0630 [facility] Last Admin: 07/09/17 05:51 Dose: 40 mg Polyethylene Glycol (Miralax) 17 gm PO BID [facility] Last Admin: 07/09/17 10:02 Dose: 17 gm Ticagrelor (Brilinta) 60 mg PO BID [facility] Last Admin: 07/09/17 11:20 Dose: 60 mg - Labs Labs: 07/09/17 11:45 07/08/17 06:00 PT 11.9 SECONDS (9.4-12.5) 07/04/17 11:35 INR 1.08 (0.93-1.08) 07/04/17 11:35 APTT 27.6 Seconds (25.1-36.5) 07/04/17 11:35 - Constitutional Appears: Non-toxic, No Acute Distress - Head Exam Head Exam: ATRAUMATIC, NORMOCEPHALIC - Eye Exam Eye Exam: EOMI - ENT Exam ENT Exam: Mucous Membranes Moist - Respiratory Exam Respiratory Exam: NORMAL BREATHING PATTERN - Cardiovascular Exam Cardiovascular Exam: REGULAR RHYTHM - GI/Abdominal Exam GI & Abdominal Exam: Soft. absent: Rigid, Tenderness - Neurological Exam Neurological Exam: Alert, Awake - Psychiatric Exam Psychiatric exam: Normal Affect, Normal Mood - Skin Skin Exam: Dry, Intact Assessment and Plan - Assessment and Plan (Free Text) Assessment: This is a 62M who presented with GI bleed No overt clinicalsigns of bleeding currently No acute surgical intervention at this time If bleeding restarts I would recommend re-evaluating antiplatlet and anticoagulation regiment with bell clerk Will discuss with Dr. Cody Monk PGY2
--- NOTE | 2017-07-09 15:16 | PN ---
DATE: 07/09/2017 SUBJECTIVE: The patient is asymptomatic. He is ambulating without symptoms. PHYSICAL EXAMINATION: VITAL SIGNS: Blood pressure 112/62, heart rate in the 70s. NECK: Negative JVD. LUNGS: Without rales. HEART: Reveals S1 and S2. EXTREMITIES: Without edema. LABORATORY DATA: Hemoglobin is 9.9. Chemistries: BUN and creatinine unremarkable. IMPRESSION: 1. Status post lower GI bleed. 2. Stable angina. 3. Coronary artery disease. 4. History of PTCA and stent. 5. Hypercholesterolemia. PLAN: Given these findings, the patient's hemoglobin has stayed stable despite restarting on his Brilinta. From a cardiac perspective, the patient can be discharged. He will need to go home on Brilinta at a lower dose at 60 mg b.i.d. Dave Osullivan MD
--- NOTE | 2017-07-09 17:04 | CP.PCM.PN ---
<Aleyda Youssef - Last Filed: 07/09/17 17:03> Subjective - Date & Time of Evaluation Date of Evaluation: 07/09/17 Time of Evaluation: 10:30 - Subjective Subjective: S&E at bedside, chart reviewed, no acute overnight complaints or events. Had EGD /coon, no source of GI bleeding or acute findings, sent for ct scan this am, report reviewed, see [facility] [place] [facility] for full details: stomach distended and filled w/ food debris, could be gastroparesis or partial obstruction. Patient reports having BM this am, no bleeding or c/o pain. Tolerated oral intake. Objective - Vital Signs/Intake and Output Vital Signs (last 24 hours): Temp Pulse Resp BP Pulse Ox 98 F 78 20 112/62 96 07/09/17 06:00 07/09/17 10:02 07/09/17 06:00 07/09/17 10:02 07/09/17 06:00 Intake and Output: 07/09/17 07/09/17 06:59 18:59 Intake Total 300 Balance 300 - Medications Medications: Current Medications Aspirin (Ecotrin) 81 mg PO DAILY [facility] Last Admin: 07/09/17 10:02 Dose: 81 mg Atorvastatin Calcium (Lipitor) 40 mg PO HS [facility] Last Admin: 07/08/17 21:47 Dose: 40 mg Cyanocobalamin (Vitamin B12 1000 Mcg/Ml Inj) 1,000 mcg IM DAILY [facility] Last Admin: 07/09/17 10:02 Dose: 1,000 mcg Folic Acid (Folic Acid) 1 mg PO DAILY [facility] Last Admin: 07/09/17 10:02 Dose: 1 mg Metoprolol Tartrate (Lopressor) 25 mg PO BID [facility] Last Admin: 07/09/17 10:02 Dose: 25 mg Pantoprazole Sodium (Protonix Ec Tab) 40 mg PO 0630 [facility] Last Admin: 07/09/17 05:51 Dose: 40 mg Polyethylene Glycol (Miralax) 17 gm PO BID [facility] Last Admin: 07/09/17 10:02 Dose: 17 gm Ticagrelor (Brilinta) 60 mg PO BID [facility] Last Admin: 07/09/17 11:20 Dose: 60 mg - Labs Labs: 07/09/17 11:45 07/08/17 06:00 PT 11.9 SECONDS (9.4-12.5) 07/04/17 11:35 INR 1.08 (0.93-1.08) 07/04/17 11:35 APTT 27.6 Seconds (25.1-36.5) 07/04/17 11:35 - Constitutional Appears: No Acute Distress - Eye Exam Eye Exam: Normal appearance. absent: Scleral icterus - ENT Exam ENT Exam: Mucous Membranes Moist - Respiratory Exam Respiratory Exam: Clear to Ausculation Bilateral, NORMAL BREATHING PATTERN. absent: Respiratory Distress - Cardiovascular Exam Cardiovascular Exam: +S1, +S2 - GI/Abdominal Exam GI & Abdominal Exam: Soft, Normal Bowel Sounds. absent: Guarding, Tenderness, Rebound - Extremities Exam Extremities Exam: Normal Capillary Refill. absent: Pedal Edema - Neurological Exam Neurological Exam: Alert, Awake, Oriented x3 Assessment and Plan - Assessment and Plan (Free Text) Assessment: ASSESSMENT: Anemia Rectal bleeding, h/o hemorrhoids s/p EGD/COLON, no source of GI bleeding, Hemorrhoid/cecal diverticulum Constipation CAD, h/o SD PLAN: diet as tolerated monitor H/H continue PPI on ASA/Brilinta continue Miralax BID Seen and discussed w/ Dr. Pa. <Jack Pa V - Last Filed: 07/09/17 21:45> Objective - Vital Signs/Intake and Output Vital Signs (last 24 hours): Temp Pulse Resp BP Pulse Ox 98.5 F 65 20 149/78 96 07/09/17 17:25 07/09/17 17:25 07/09/17 17:25 07/09/17 17:25 07/09/17 06:00 - Labs Labs: 07/09/17 11:45 07/08/17 06:00 PT 11.9 SECONDS (9.4-12.5) 07/04/17 11:35 INR 1.08 (0.93-1.08) 07/04/17 11:35 APTT 27.6 Seconds (25.1-36.5) 07/04/17 11:35 Attending/Attestation - Attestation I have personally seen and examined this patient.: Yes I have fully participated in the care of the patient.: Yes I have reviewed all pertinent clinical information, including history, physical exam and plan: Yes Notes (Text): This is an addendum to GI progress report dictated by Aleyda Youssef APN.The patient was seen and examined earlier. Medical records, lab studies, imagings were reviewed. Last 24 hours events reviewed. Agreed with the above treatment plan as outlined in Aleyda Youssef APN's notes the with the addition of the following Patient's was at bedside at the time of examination Abdomen soft no tenderness No further episodes of bleeding. CT scan reviewed findings discussed with the patient Advised to follow up with the Dr. Huitron and also with the hematologists Follow up with the Dr. Ross regarding hemorrhoids 07/09/17 21:44
[2017-07-09] MEDS ORDERED: Influenza Vaccine 60 mcg/0.5 mL SYR (4YR UP) IM ONE (17:14)
[2017-07-09 17:26] VITALS: BP 149/78; PULSE 65; TEMP 98.5
--- NOTE | 2017-07-11 05:50 | DS ---
HISTORY OF PRESENT ILLNESS: The patient is a 62-year-old who came to emergency room on 07/04/[address] Richard did blood work in office and he was found to have hemoglobin of 6.5. He was having rectal bleeding 2 days prior to coming to 07/04/2017, so he was given 3 blood transfusions. He kept on bleeding for extra 2 days, so he was scheduled to have endoscopy and colonoscopy done to find out the source why he is having bright red rectal bleeding, both above named tests were negative. The patient's Brilinta and aspirin were held after mutual discussion with other consultants. However, after finding out that his endoscopy and colonoscopy is negative, he is being started, but on smaller dose of Brilinta. PHYSICAL EXAMINATION: GENERAL: Today, no more episode of rectal bleeding. He is awake, alert, oriented, and communicative. VITAL SIGNS: Afebrile, pulse 65, respirations 20, and blood pressure 149/78. LUNGS: Bilateral fair airflow. No rhonchi or crackles. HEART: S1 and S2 audible. ABDOMEN: Soft and nontender. No rebound. No guarding. NEUROLOGICAL: He is awake, alert, oriented,communicative, and ambulatory. LABORATORY DATA: WBC 6.1, hemoglobin 9.9, hematocrit 31.9, and platelet of 210. Chemistry; sodium 144, potassium 3.9, chloride 114, CO2 of 26, BUN 6, creatinine 0.8, and blood sugar of 81. B12 is 199. ASSESSMENT: 1. Probably internal hemorrhoids, source of bleeding. 2. Iron deficiency anemia. 3. B12 deficiency. 4. Coronary artery disease, status post angioplasty. PLAN: The patient is being discharged home. His discharge medications are Brilinta 60 mg twice a day, atorvastatin 40 mg daily, aspirin 81 daily, simvastatin 40 mg daily, and metoprolol 25 twice a day. I will follow up with him in office and he is advised to follow with Dr. Card as outpatient to have his hemorrhoid ligated. Rand Pizano MD
== END 2017-07-09 17:57 | disposition home or self-care (01) | DRG 394 ==
LOC: ED 10:23 → ERH 12:58 → 2RNO 14:30 → 3RSO 07-08 12:29
PROVIDERS: ADMIT Internal Medicine; ATTEND Internal Medicine
PROC: 30233N1 Transfusion of Nonautologous Red Blood Cells into Peripheral Vein, Percutaneous Approach (ICD-10-PCS; principal; 2017-07-04)
PROC: 0DJD8ZZ Inspection of Lower Intestinal Tract, Via Natural or Artificial Opening Endoscopic (ICD-10-PCS; 2017-07-08)
PROC: 0DJ08ZZ Inspection of Upper Intestinal Tract, Via Natural or Artificial Opening Endoscopic (ICD-10-PCS; 2017-07-08 09:45)
DX: K64.8 Other hemorrhoids (principal); D50.0 Iron deficiency anemia secondary to blood loss (chronic); K64.4 Residual hemorrhoidal skin tags; I42.9 Cardiomyopathy, unspecified; I10 Essential (primary) hypertension; E53.8 Deficiency of other specified B group vitamins; I25.118 Atherosclerotic heart disease of native coronary artery with other forms of angina pectoris; K57.30 Diverticulosis of large intestine without perforation or abscess without bleeding; E78.00 Pure hypercholesterolemia, unspecified; K59.09 Other constipation; I25.2 Old myocardial infarction; Z95.5 Presence of coronary angioplasty implant and graft

== ENCOUNTER 2017-08-14 18:59 | Inpatient (IN) | payer BC ==
[2017-08-14 19:14] VITALS: BMI 22.6
--- NOTE | 2017-08-14 19:38 | ED PDOC ---
Arrival/HPI - General Chief Complaint: GI Problem Time Seen by Provider: 08/14/17 19:16 Historian: Patient - History of Present Illness Narrative History of Present Illness (Text): you have a history of bleeding from the rectum had an egd/colonoscopy without acute findings recently, heart disease with stents and on brillinta/asprin, were treated in the ED today for bleeding from the rectum otherwise without any nausea/vomiting/headache/dizziness/difficulty breathing/chest pain/abdomen pain/ numbness/tingling/loss of limb function/pain with urination. 08/14/17 19:37 Time/Duration: > week Past Medical History - Travel History Have you recently traveled outside [place] w/in the past 3 mons?: No - Infectious Disease Hx of Infectious Diseases: None - Cardiac Hx Cardiac Disorders: Yes Hx Angina: Yes Hx Hypertension: Yes - Pulmonary Hx Respiratory Disorders: No - Neurological Hx Neurological Disorder: Yes HX Cerebrovascular Accident: Yes (Patient stated "He had a stroke") - HEENT Hx HEENT Disorder: No - Renal Hx Renal Disorder: No - Endocrine/Metabolic Hx Endocrine Disorders: No - Hematological/Oncological Hx Blood Transfusions: Yes (FEW YRS AGO) Hx Blood Transfusion Reaction: No - Integumentary Hx Dermatological Disorder: No - Musculoskeletal/Rheumatological Hx Musculoskeletal Disorders: No Hx Falls: No - Gastrointestinal Hx Gastrointestinal Disorders: Yes (RECTAL BLEEDING) - Genitourinary/Gynecological Hx Genitourinary Disorders: Yes (difficulty urinating) - Psychiatric Hx Psychophysiologic Disorder: No Hx Substance Use: No - Surgical History Hx Cardiac Catheterization: Yes (1 stent) Hx Coronary Stent: Yes Other/Comment: cardiac cath - Anesthesia Hx Anesthesia: Yes Hx Anesthesia Reactions: No Hx Malignant Hyperthermia: No - Suicidal Assessment Feels Threatened In Home Enviroment: No Family/Social History Family/Social History: No Known Family HX Smoking Status: Smoker Currrent Status Unknown Hx Alcohol Use: No Hx Substance Use: No Allergies/Home Meds Allergies/Adverse Reactions: Allergies No Known Allergies Allergy (Verified 08/14/17 19:17) Home Medications: Home Meds Medication Instructions Recorded Confirmed Desloratadine [Clarinex] 5 mg PO DAILY 07/04/17 07/04/17 Simvastatin [Zocor] 40 mg PO DAILY 07/04/17 07/04/17 Review of Systems - Review of Systems Constitutional: Normal Eyes: Normal ENT: Normal Respiratory: Normal Cardiovascular: Normal Gastrointestinal: Other (gib rectum) Genitourinary Male: Normal Musculoskeletal: Normal Skin: Normal Neurological: Normal Endocrine: Normal Hemo/Lymphatic: Normal Psychiatric: Normal Physical Exam Vital Signs Reviewed: Yes Vital Signs Temp Pulse Resp BP Pulse Ox 08/14/17 19:19 98.7 F 77 17 144/76 100 Temperature: Afebrile Blood Pressure: Hypertensive Pulse: Regular Respiratory Rate: Normal Appearance: Positive for: Well-Appearing, Non-Toxic, Comfortable Pain Distress: None Mental Status: Positive for: Alert and Oriented X 3 - Systems Exam Head: Present: Atraumatic, Normocephalic Pupils: Present: PERRL, Other Extroacular Muscles: Present: EOMI Conjunctiva: Present: Normal, Other (mild pale) Ears: Present: Normal Mouth: Present: Moist Mucous Membranes Pharnyx: Present: Normal Nose (External): Present: Atraumatic Nose (Internal): Present: Normal Inspection Neck: Present: Normal Range of Motion Respiratory/Chest: Present: Clear to Auscultation, Good Air Exchange Cardiovascular: Present: Regular Rate and Rhythm Abdomen: Present: Tenderness. No: Distention, Normal Bowel Sounds, Peritoneal Signs, Rebound, Guarding, McBurney's Point Tender, Rovsing's Sign Present, Hernias, Feeding Tubes, Ostomy Tubes, Mass/Organomegaly, Scars, Other Rectal: Present: Occult Blood (positive, no active bleeding, skin tags+/ hemorrhoids) Back: Present: Normal Inspection Upper Extremity: Present: Normal Inspection Lower Extremity: Present: Normal Inspection Neurological: Present: GCS=15, CN II-XII Intact, Speech Normal, Motor Func Grossly Intact Skin: Present: Warm, Normal Color Psychiatric: Present: Alert, Oriented x 3, Normal Insight, Normal Concentration Medical Decision Making ED Course and Treatment: you have a history of bleeding from the rectum had an egd/colonoscopy without acute findings recently, heart disease with stents and on brillinta/asprin, were treated in the ED today for bleeding from the rectum otherwise without any nausea/vomiting/headache/dizziness/difficulty breathing/chest pain/abdomen pain/ numbness/tingling/loss of limb function/pain with urination. You were otherwise breathing easily, smiling, good strength/sensation, walking easily, clear lungs , no abdomen tenderness, rectal exam without acute bleeding but noted positive guaic card testing blue, no fever temp 98.1, stable heart rate 77, stable breathing rate 17, excellent oxygen level 100% room air, elevated blood pressure 144/76_ which we recommend repeat in 2-3 days primary care office to determine further treatment, you have blood tests no infection count, low blood level hemoglobin 8.7 down from 10.4 from 07/06/17/platelets 186, heart blood test normal, ECG NSR, protonix, intravenous done in the ED with improvement, discussed with DR. Drew for admission for npo, ivf, gi consult with dr. artis. 08/14/17 20:01 08/14/17 20:50 08/14/17 22:09 08/14/17 22:11 - Lab Interpretations Lab Results: 08/14/17 19:26 08/14/17 19:26 Lab Results 08/14/17 19:45: Blood Type A POSITIVE, Antibody Screen Negative, BBK History Checked Patient has bt 08/14/17 19:26: Sodium 143, Potassium 3.8, Chloride 105, Carbon Dioxide 25, Anion Gap 17, BUN 12, Creatinine 0.8, Est GFR ( Amer) > 60, Est GFR (Non- Af Amer) > 60, Random Glucose 81, Calcium 9.4, Total Bilirubin 0.3, AST 23, ALT 27, Alkaline Phosphatase 43, Lactate Dehydrogenase 290 L, Total Creatine Kinase 49, Troponin I < 0.01, Total Protein 7.5, Albumin 4.1, Globulin 3.4, Albumin/ Globulin Ratio 1.2 08/14/17 19:26: PT 12.3, INR 1.13 H, APTT 30.7 08/14/17 19:26: WBC 5.1, RBC 3.52, Hgb 8.7 L, Hct 28.6 L, MCV 81.3 D, MCH 24.7 L, MCHC 30.4 L, RDW 20.1 H, Plt Count 186, MPV 9.9, Gran % 60.7, Lymph % (Auto) 25.2, Gallia % (Auto) 8.8 H, Eos % (Auto) 4.7, Baso % (Auto) 0.6, Gran # 3.10, Lymph # 1.3, Gallia # 0.5, Eos # 0.2, Baso # 0.03 I have reviewed the lab results: Yes - EKG Interpretation Interpreted by ED Physician: Yes (NSR, flipped avr, v1, v2) - Medication Orders Current Medication Orders: Discontinued Medications Pantoprazole Sodium (Protonix Inj) 80 mg IVP STAT STA Stop: 08/14/17 19:35 Last Admin: 08/14/17 19:43 Dose: 80 mg IVP Administration Document 08/14/17 19:43 IT (Rec: 08/14/17 19:43 IT [id number]) Charges for Administration # of IVP Administrations 1 Disposition/Present on Arrival - Present on Arrival Any Indicators Present on Arrival: No History of DVT/PE: No History of Uncontrolled Diabetes: No Urinary Catheter: No History of Decub. Ulcer: No History Surgical Site Infection Following: None - Disposition Have Diagnosis and Disposition been Completed?: Yes Diagnosis: GIB (gastrointestinal bleeding) Disposition: HOSPITALIZED Disposition Time: 22:20 Patient Plan: Admission, Discharge, Telemetry Condition: IMPROVED Referrals: Rand Pizano MD [Primary Care Provider] - Follow up with primary Forms: icix (Haitian)
[2017-08-14 19:44] LABS: BASO # 0.03 K/mm3 (0.0-2.0); BASO % 0.6 % (0.0-3.0); EOS # 0.2 (0.0-0.7); EOS % 4.7 % (1.5-5.0); GRAN # 3.1 (1.4-6.5); GRAN % 60.7 % (50.0-68.0); HEMATOCRIT 28.6 % (42.0-52.0); LYMPH # 1.3 (1.2-3.4); LYMPH % 25.2 % (22.0-35.0); MEAN CELL VOLUME 81.3 fl (80.0-105.0); MEAN CORPUSCULAR HEMOGLOBIN 24.7 pg (25.0-35.0); MEAN CORPUSCULAR HGB CONC 30.4 g/dl (31.0-37.0); MEAN PLATELET VOLUME 9.9 fl (7.0-11.0); MONO # 0.5 (0.1-0.6); MONO % 8.8 % (1.0-6.0); RED CELL DISTRIBUTION WIDTH 20.1 % (11.5-14.5); WHITE BLOOD COUNT 5.1 10^3/ul (4.5-11.0)
[2017-08-14 19:54] LABS: ALB/GLOB RATIO 1.2 (1.1-1.8); ALKALINE PHOSPHATASE 43 U/L (38-126); ALT/SGPT 27 U/L (7-56); AST/SGOT 23 U/L (17-59); BILIRUBIN,TOTAL 0.3 mg/dL (0.2-1.3); BLOOD UREA NITROGEN 12 mg/dL (7-21); CALCIUM 9.4 mg/dL (8.4-10.5); CARBON DIOXIDE 25 mmol/L (21-33); CHLORIDE 105 mmol/L (98-107); GFR AFRICAN-AMERICAN > 60; GLUCOSE,RANDOM 81 mg/dL (70-110); POTASSIUM 3.8 mmol/L (3.6-5.0); SODIUM 143 mmol/L (132-148); TOTAL PROTEIN 7.5 g/dL (5.8-8.3)
[2017-08-14 19:56] LABS: INR 1.13 (0.93-1.08); PARTIAL THROMBOPLASTIN TIME 30.7 Seconds (25.1-36.5)
[2017-08-14 20:06] LABS: TROPONIN I < 0.01 ng/mL
[2017-08-14] MEDS: Dextrose 5%/0.45% NS 1,000 ML IV SCH (22:52)
--- NOTE | 2017-08-15 05:20 | HP ---
HISTORY OF PRESENT ILLNESS: The patient is a 62-year-old who came to emergency room because of intermittent rectal bleeding. The patient has been having bleeding from more than a week. He was seen by Dr. Card couple of days ago, had internal hemorrhoid banded. According to the patient's , he has been still intermittently bleeding. He was seen by Dr. Richard on Friday, had iron infusion, at that point his hemoglobin was 9.4. According to the patient's , he had bleeding yesterday again and this morning complained of feeling weak, tired, rectal burning. Denies any fever or chills. No history of nausea or vomiting. PAST MEDICAL HISTORY: Significant for; 1. Anemia. 2. B12 deficiency. 3. Coronary artery disease, status post recent angioplasty that was done in 01/2017. He had LAD stenting done and had 50% stenosis in posterior descending artery and 50% in the second diagonal vessel. ALLERGIES: HE IS NOT ALLERGIC TO ANY MEDICATIONS. MEDICATIONS AT HOME: He was on Brilinta 60 mg daily, but that was stopped few days ago; Zocor 40 mg daily; metoprolol 25 mg b.i.d.; Clarinex 5 mg daily; Lipitor 40 mg at bedtime; and aspirin 81 mg daily. SOCIAL HISTORY: Denies smoking, drinking, or alcohol use. REVIEW OF SYSTEMS: Significant for generalized weakness and intermittent rectal bleeding. PHYSICAL EXAMINATION: GENERAL: He is awake, alert, oriented, and communicative. VITAL SIGNS: He is afebrile. Pulse 77, respirations 17, blood pressure 144/76. LUNGS: Bilateral fair airflow. No rhonchi or crackle. HEART: S1 and S2 audible. ABDOMEN: Soft, nontender. No rebound. No guarding. He is guaiac positive. NEUROLOGIC: He is awake, alert, and oriented. LABORATORY DATA: WBC 5.1, hemoglobin 8.7, hematocrit 28.6, platelets 186. PT 12.3, INR 1.13. Chemistry; sodium 143, potassium 3.8, chloride 105, CO2 of 25, BUN 12, creatinine 0.8, blood sugar of 81. LFTs are within normal limits. LDH is 290, troponin is 0.01. ASSESSMENT: 1. Rectal bleeding. 2. Recent colonoscopy and endoscopy was unremarkable. 3. Coronary artery disease, status post left anterior descending stenting. 4. B12 deficiency. 5. Iron deficiency. 6. Internal hemorrhoid. PLAN: We will keep patient n.p.o. We will give him IV fluid, start him on Protonix. Dr. Pa for consult. Dr. Osullivan for consult. We will hold aspirin and Brilinta for now. We will give him beta-blockers. Rand Pizano MD
[2017-08-15] MEDS ORDERED: Peg-Electrolyte Oral Soln 4L (Golytely) PO ONE (06:00)
[2017-08-15] MEDS: Pantoprazole 40 mg EC Tab PO SCH (06:14)
[2017-08-15 06:43] LABS: ALB/GLOB RATIO 1.2 (1.1-1.8); ALKALINE PHOSPHATASE 39 U/L (38-126); ALT/SGPT 17 U/L (7-56); AST/SGOT 35 U/L (17-59); BILIRUBIN,TOTAL 0.3 mg/dL (0.2-1.3); BLOOD UREA NITROGEN 10 mg/dL (7-21); CARBON DIOXIDE 26 mmol/L (21-33); CHLORIDE 109 mmol/L (98-107); GFR AFRICAN-AMERICAN > 60; GLUCOSE,RANDOM 94 mg/dL (70-110); POTASSIUM 3.8 mmol/L (3.6-5.0); SODIUM 143 mmol/L (132-148); TOTAL PROTEIN 6.6 g/dL (5.8-8.3)
[2017-08-15 06:45] LABS: BASO # 0.02 K/mm3 (0.0-2.0); BASO % 0.5 % (0.0-3.0); EOS # 0.3 (0.0-0.7); EOS % 6.6 % (1.5-5.0); GRAN # 1.83 (1.4-6.5); GRAN % 44.5 % (50.0-68.0); HEMATOCRIT 25.9 % (42.0-52.0); LYMPH # 1.6 (1.2-3.4); LYMPH % 37.7 % (22.0-35.0); MEAN CELL VOLUME 80.9 fl (80.0-105.0); MEAN CORPUSCULAR HGB CONC 30.9 g/dl (31.0-37.0); MEAN PLATELET VOLUME 10.2 fl (7.0-11.0); MONO # 0.4 (0.1-0.6); MONO % 10.7 % (1.0-6.0); RED CELL DISTRIBUTION WIDTH 20.2 % (11.5-14.5); WHITE BLOOD COUNT 4.1 10^3/ul (4.5-11.0)
--- NOTE | 2017-08-15 10:23 | CARD ---
APPROVED REPORT EKG Measurement Heart [id number] <Conclusion> Normal sinus rhythm Incomplete right bundle branch block Anteroseptal infarct, age undetermined LAD NSSTW changes No change
[2017-08-15] MEDS: Dextrose 5%/0.45% NS 1,000 ML IV SCH (12:49)
--- NOTE | 2017-08-15 14:26 | CP.PCM.CON ---
History of Present Illness - History of Present Illness History of Present Illness: Seen and examined at the bedside earlier today. The chart was reviewed. Request for GI consult is for GI bleed. HPI: this is a 62-year-old male with a's past medical history of coronary artery disease status post angioplasty on 01/2017 with LAD stent on aspirin and Brilinta. This patient has history of internal hemorrhoid status post banding done by Dr. Ross a few days ago. The patient endorses intermittent bleeding. 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 Richard and had an iron infusion. The hemoglobin was reported to be over 9. The patient came with complaints of feeling weak and having rectal burning. The patient on admission found to have a hemoglobin of 8.0. He denies any shortness of breath , chest pain, nausea, hematemesis, or abdominal pain. No complaint of fever or chills.this patient had EGD/[id number]/14/2017 found to have normal EGD, hemorrhoid, cecal diverticulum and erythema mucosa in the sigmoid, no biopsies obtained at the time as patient was on Brilinta. Currently the patient tolerated of GoLYTELY and is having clear BM for colonoscopy. No further reports of bleeding. Past medical history: B12 deficiency, anemia, coronary artery disease status post angioplasty 01/2017 on aspirin and Brilinta. Hemorrhoids, cecal diverticulum, dyslipidemia Surgical history: Angioplasty Allergies: No known drug allergies Family history: Noncontributory to this time Medications: Reviewed as per MAR Social history: Denies smoking, drinking, or drugs. ROS: Systems reviewed with positive findings see HPI Past Patient History - Infectious Disease Hx of Infectious Diseases: None - Past Medical History & Family History Past Medical History?: Yes - Past Social History Smoking Status: Never Smoked - CARDIAC Hx Cardiac Disorders: Yes Hx Peripheral Vascular Disease: Yes - PULMONARY Hx Respiratory Disorders: No - NEUROLOGICAL Hx Neurological Disorder: Yes - HEENT Hx HEENT Problems: No - RENAL Hx Chronic Kidney Disease: No - ENDOCRINE/METABOLIC Hx Endocrine Disorders: No - HEMATOLOGICAL/ONCOLOGICAL Hx Blood Disorders: No - INTEGUMENTARY Hx Dermatological Problems: No - MUSCULOSKELETAL/RHEUMATOLOGICAL Hx Musculoskeletal Disorders: No Hx Falls: No - GASTROINTESTINAL Hx Gastrointestinal Disorders: Yes - GENITOURINARY/GYNECOLOGICAL Hx Genitourinary Disorders: No - PSYCHIATRIC Hx Psychophysiologic Disorder: No - SURGICAL HISTORY Hx Surgeries: No Hx Cardiac Catheterization: Yes - ANESTHESIA Hx Anesthesia: Yes Hx Anesthesia Reactions: No Hx Malignant Hyperthermia: No Meds Allergies/Adverse Reactions: Allergies Allergy/AdvReac Type Severity Reaction Status Date / Time No Known Allergies Allergy Verified 08/14/17 19:17 - Medications Medications: Current Medications Atorvastatin Calcium (Lipitor) 40 mg PO HS [facility] Dextrose/Sodium Chloride (Dextrose 5%/0.45% Ns 1000 Ml) 1,000 mls @ 75 mls/hr IV .[id number] [facility] Last Admin: 08/15/17 12:49 Dose: 75 mls/hr Metoprolol Tartrate (Lopressor) 25 mg PO BID [facility] Last Admin: 08/15/17 09:26 Dose: 25 mg Pantoprazole Sodium (Protonix Ec Tab) 40 mg PO 0600 [facility] Last Admin: 08/15/17 06:14 Dose: 40 mg Physical Exam - Constitutional Appears: No Acute Distress - Head Exam Head Exam: NORMOCEPHALIC - Eye Exam Eye Exam: Normal appearance. absent: Scleral icterus - ENT Exam ENT Exam: Mucous Membranes Moist - Neck Exam Neck exam: Positive for: Normal Inspection - Respiratory Exam Respiratory Exam: Clear to Auscultation Bilateral, NORMAL BREATHING PATTERN. absent: Respiratory Distress - Cardiovascular Exam Cardiovascular Exam: +S1, +S2 - GI/Abdominal Exam GI & Abdominal Exam: Normal Bowel Sounds, Soft. absent: Guarding, Organomegaly , Rebound, Tenderness - Extremities Exam Extremities exam: Positive for: pedal pulses present. Negative for: calf tenderness, pedal edema - Neurological Exam Neurological exam: Alert, CN II-XII Intact, Oriented x3 - Skin Skin Exam: Dry, Warm Results - Vital Signs Recent Vital Signs: Last Vital Signs Temp 97.4 F L 08/15/17 12:00 Pulse 78 08/15/17 12:00 Resp 20 08/15/17 12:00 BP 102/52 L 08/15/17 12:00 Pulse Ox 98 08/15/17 01:20 - Labs Result Diagrams: 08/15/17 05:50 08/15/17 05:50 Labs: Laboratory Results - last 24 hr 08/15/17 08/15/17 05:50 05:50 WBC 4.1 L RBC 3.20 L Hgb 8.0 L Hct 25.9 L MCV 80.9 MCH 25.0 MCHC 30.9 L RDW 20.2 H Plt Count 167 MPV 10.2 Gran % 44.5 L Lymph % (Auto) 37.7 H [place] % (Auto) 10.7 H Eos % (Auto) 6.6 H Baso % (Auto) 0.5 Gran # 1.83 Lymph # 1.6 [place] # 0.4 Eos # 0.3 Baso # 0.02 Sodium 143 Potassium 3.8 Chloride 109 H Carbon Dioxide 26 Anion Gap 12 BUN 10 Creatinine 0.8 Est GFR ( Amer) > 60 Est GFR (Non-Af Amer) > 60 Random Glucose 94 Calcium 9.0 Total Bilirubin 0.3 AST 35 ALT 17 Alkaline Phosphatase 39 Total Protein 6.6 Albumin 3.6 Globulin 3.1 Albumin/Globulin Ratio 1.2 Assessment & Plan - Assessment and Plan (Free Text) Assessment: Assessment: GI bleed/rectal bleeding 1I's and he is adifferential to consider is diverticular bleed, angiodysplasia status post recent EGD/colon 06/2017 unremarkable Anemia B12 deficiency Internal hemorrhoids status post recent banding CAD status post LAD stent Plan: Nothing by mouth, continue IV F Continue Protonix Trend H&H and monitor overt GI bleed Aspirin and Brilinta currently on hold Cardiology on case Patient is prepped for colonoscopy today Discussed with Dr. Pizano at bedside, patient will be given 2 units of packed RBC, first unit to be infused prior to colonoscopy, discussed with nursing staff. Thank you for this consult and for allowing us to participate in your patient's care, further recommendations based upon clinical course. Seen and discussed with Dr. Pa.
[2017-08-15] MEDS ORDERED: Propofol 10 mg/ml Inj (20 ML) ONE (16:04)
[2017-08-15] MEDS ORDERED: Lidocaine 2% Jelly (30 ml) TOP ONE (16:09)
[2017-08-15] MEDS ORDERED: Lidocaine 2% Jelly (30 ml) ONE (16:10)
[2017-08-15] MEDS ORDERED: Sodium Chloride 0.9% 1,000 ML IV SCH (16:30)
--- NOTE | 2017-08-15 21:56 | PN ---
DATE: SUBJECTIVE: The patient is a 62-year-old, seen and examined. He states he did not have rectal bleeding since he came last night. No nausea, vomiting. No diarrhea. No abdominal pain. PHYSICAL EXAMINATION: VITAL SIGNS: He is afebrile, pulse 62, respirations 18, blood pressure 90/56. LUNGS: Bilateral good airflow. No rhonchi or crackle. HEART: S1 and S2 audible. ABDOMEN: Soft and nontender. No rebound. No guarding. NEUROLOGIC: He is awake, alert, oriented, and communicative. Moves all extremities. LABORATORY EXAMINATION: WBC is 4.1, hemoglobin 9.0, hematocrit 25.9, platelets of 167. Chemistry: Sodium 143, potassium 3.8, chloride 109, CO2 24, BUN 10, creatinine 0.8, blood sugar of 94. ASSESSMENT AND PLAN: 1. Rectal bleeding, etiology is still unclear. 2. History of coronary artery disease, status post angioplasty. 3. B12 deficiency. 4. Iron deficiency. PLAN: The patient is going for colonoscopy today. He will receive 2 blood transfusions. After colonoscopy, we will start him on clear liquid and will advance as tolerated. Follow up CBC in a.m. Rand Pizano MD
--- NOTE | 2017-08-15 23:13 | CON ---
CARDIOLOGY CONSULTATION DATE: 08/15/2017 HISTORY OF PRESENT ILLNESS: The patient is a 62-year-old male who presents with lower GI bleed. The patient has had recurrent bleeds in the past. The patient's past medical history is notable for an acute anterior wall myocardial infarction suffered in 10/2016. The patient underwent successful PTCA and stent of an occluded LAD. He is currently been on Brilinta 60 mg b.i.d. PAST MEDICAL HISTORY: His past medical history also includes hypercholesterolemia which he is on a statin therapy. He denies chest pain, denies shortness of breath. SOCIAL HISTORY: The patient does not smoke. REVIEW OF SYSTEMS: A 14-point review of systems was reviewed in detail. No cardiac symptoms are noted. PHYSICAL EXAMINATION: VITAL SIGNS: Blood pressure is 109/62, heart rate in the 60s, normal sinus rhythm. NECK: Negative JVD. LUNGS: Without rales. HEART: S1, S2. EXTREMITIES: Without edema. LABORATORY DATA: The hemoglobin is down to 8.0. Chemistries, BUN and creatinine is 10 and creatinine is 0.8. Troponin negative x1. EKG shows no acute changes. IMPRESSION: 1. Gastrointestinal bleed which is likely due to hemorrhoids. However, this has recurrent bleed. 2. Stable angina. 3. Coronary artery disease. 4. No evidence for acute coronary syndrome. 5. History of emergency percutaneous transluminal coronary angioplasty and stent of an occluded left anterior descending. Given these findings, and with the patient's history of recurrent bleed, we will hold the aspirin and Brilinta for now. The patient is scheduled for colonoscopy today. Depending on the source of bleeding, we may need to stop his Brilinta. If possible I would like to restart him on aspirin and Plavix once GI has been able to evaluate the source of his bleed. Dave Osullivan MD
[2017-08-16] MEDS: Dextrose 5%/0.45% NS 1,000 ML IV SCH ×2 (01:25→06:33)
[2017-08-16] MEDS: Pantoprazole 40 mg EC Tab PO SCH (06:33)
[2017-08-16 06:51] VITALS: O2SAT 98
[2017-08-16 07:22] LABS: BASO # 0.03 K/mm3 (0.0-2.0); BASO % 0.7 % (0.0-3.0); EOS # 0.2 (0.0-0.7); EOS % 5.7 % (1.5-5.0); GRAN # 2.24 (1.4-6.5); GRAN % 55.7 % (50.0-68.0); LYMPH # 1.1 (1.2-3.4); LYMPH % 27.5 % (22.0-35.0); MEAN CELL VOLUME 82.1 fl (80.0-105.0); MEAN CORPUSCULAR HEMOGLOBIN 25.6 pg (25.0-35.0); MEAN CORPUSCULAR HGB CONC 31.3 g/dl (31.0-37.0); MEAN PLATELET VOLUME 10.3 fl (7.0-11.0); MONO # 0.4 (0.1-0.6); MONO % 10.4 % (1.0-6.0); RED CELL DISTRIBUTION WIDTH 18.5 % (11.5-14.5)
[2017-08-16 13:37] VITALS: BP 116/68; PULSE 68; RESP 18; TEMP 97.6
--- NOTE | 2017-08-16 15:17 | PN ---
DATE: Covering for Dr. Dave Osullivan. SUBJECTIVE: According to the nurse, there is reported rectal bleeding. The patient denies any chest pain. PHYSICAL EXAMINATION: VITAL SIGNS: Blood pressure 98/55, heart rate 70, temperature 97.7, and respirations 16. HEENT: Pale conjunctivae. CHEST: Clear. HEART: S1 and S2 regular. EXTREMITIES: No edema. LABORATORY DATA: Hemoglobin and hematocrit 10 and 32.0, white count 4.0, and platelet count 163,000. Yesterday's SMA-7 is within normal limits except for chloride of 109. Colonoscopy revealed anal/rectal ulceration with the evidence of recent bleeding. ASSESSMENT: 1. Coronary artery disease with history of left anterior descending artery stenting few months ago. 2. Rectal bleeding. 3. History of hyperlipidemia. CONDITIONS: Resume Lipitor at 40 mg once a day. Case was discussed with Dr. Dave Osullivan and the patient would be maintained on Plavix instead of Brilinta at 75 mg once a day. Resume aspirin 81 mg once a day once cleared by order picker and continue Protonix at 40 mg once a day. Luis Daniel Riley MD
--- NOTE | 2017-08-17 03:55 | DS ---
HISTORY OF PRESENT ILLNESS: The patient is a 62-year-old, seen and examined, has been intermittently bleeding for a week and had internal hemorrhoid ligated by Dr. Card. Since then, it has been painful and has been bleeding even more, so he came to the Emergency Room yesterday, had colonoscopy done that was unremarkable; however, he was found to have anal fissure. The fissure is close to the blood vessels from where he has been bleeding as per Dr. Pa. The patient was given 2 blood transfusions. His hemoglobin yesterday was 8, today is 10. Feels little better. No chest pain. No shortness of breath. PHYSICAL EXAMINATION: VITAL SIGNS: He is afebrile, pulse 60, respirations 18, blood pressure 116/68. LUNGS: Bilateral good airflow. No rhonchi or crackles. HEART: S1 and S2 audible. ABDOMEN: Soft, nontender. No rebound. No guarding. NEUROLOGIC: The patient is awake and alert. Able to communicate. LABORATORY EXAMINATION: WBC 4.0, hemoglobin 10, hematocrit 32, platelet of 163. Chemistries; sodium 143, potassium 3.8, chloride 109, CO2 of 26, BUN 10, creatinine 0.8, blood sugar of 94. ASSESSMENT: 1. Rectal bleeding secondary to anal fissure. 2. Coronary artery disease status post angioplasty for left anterior descending artery. 3. Iron-deficiency anemia. 4. B12 deficiency. PLAN: The patient will discontinue Brilinta. We will continue him on Plavix 75 daily, Protonix 40 mg daily, atorvastatin 40 mg daily, metoprolol 25 twice a day, and aspirin 81 daily. I advised the patient to have a stool softener all the time. He will be given prescription of lidocaine with nifedipine or nitroglycerin as per Dr. Pa's discretion and to see him, and after he is seen by Dr. Pa, the patient will be discharged today. He will follow up with Dr. Pa as an outpatient. Rand Pizano MD
== END 2017-08-16 16:20 | disposition home or self-care (01) | DRG 394 ==
LOC: ED 18:59 → ERH 22:27 → 2RSO 08-15 01:20
PROVIDERS: ADMIT Internal Medicine; ATTEND Internal Medicine
PROC: 0DJD8ZZ Inspection of Lower Intestinal Tract, Via Natural or Artificial Opening Endoscopic (ICD-10-PCS; principal; 2017-08-15 12:30)
DX: K62.6 Ulcer of anus and rectum (principal); K92.2 Gastrointestinal hemorrhage, unspecified; K60.2 Anal fissure, unspecified; K64.8 Other hemorrhoids; I25.2 Old myocardial infarction; I10 Essential (primary) hypertension; E78.5 Hyperlipidemia, unspecified; E78.00 Pure hypercholesterolemia, unspecified; E53.8 Deficiency of other specified B group vitamins; D50.9 Iron deficiency anemia, unspecified; I25.118 Atherosclerotic heart disease of native coronary artery with other forms of angina pectoris; I73.9 Peripheral vascular disease, unspecified; K57.30 Diverticulosis of large intestine without perforation or abscess without bleeding; Z95.5 Presence of coronary angioplasty implant and graft; Z86.73 Personal history of transient ischemic attack (TIA), and cerebral infarction without residual deficits; Z79.899 Other long term (current) drug therapy; Z79.82 Long term (current) use of aspirin

== ENCOUNTER 2017-12-19 06:40 | Day surgery (SDC) | payer BC ==
[2017-12-10 12:44] VITALS: BMI 21.7
[2017-12-19] MEDS ORDERED: Lidocaine 2% Inj (20ml) ONE (06:47)
[2017-12-19] MEDS ORDERED: Phenylephrine 10 mg/ml Inj ONE (06:48)
[2017-12-19] MEDS ORDERED: Midazolam 2 MG/2 ML VIAL ONE ×2 (06:49→07:16)
[2017-12-19] MEDS ORDERED: Nitroglycerin 50mg in D5W 50 MG/250 ML BOTTLE IV ONE (06:50)
[2017-12-19] MEDS ORDERED: Iohexol 350mgl/ml 50 ML ONE (06:50)
[2017-12-19] MEDS ORDERED: Iodixanol 320 MG/ML 200 ML BOTTLE IV ONE (06:50)
[2017-12-19] MEDS ORDERED: Iodixanol 320 MG/ML 100 ML BOTTLE IV ONE (06:50)
[2017-12-19 07:08] VITALS: O2SAT 100
[2017-12-19] MEDS ORDERED: Sodium Chloride 0.9% 1,000 ML IV SCH (09:00)
[2017-12-19 09:01] VITALS: TEMP 97.6
[2017-12-19 09:58] VITALS: RESP 18
--- NOTE | 2017-12-19 11:03 | CARDCATH ---
PROCEDURE DATE: 12/19/2017 HISTORY: The patient is a 62-year-old male with multiple cardiac risk factors, who presents with deterioration of his LV function as well as a history of chest pain. His stress test was abnormal. The patient has had previous myocardial infarction and stents in the past. PROCEDURE: Left heart catheterization with coronary arteriography, left ventriculogram. The right femoral artery was cannulated with a 6-Pal[place] sheath. There were no complications. I performed moderate sedation, which included the presence of an independent trained observer that assisted in monitoring the patient's level of consciousness and physiologic status. After administration of Versed and fentanyl, my intra service time was 15 minutes. Findings on catheterization revealed a left ventricle that was mildly hypokinetic. Estimated ejection fraction is approximately 45%. There was no mitral regurgitation. There was segmental wall motion abnormality in the anteroapical segment. His coronary arteries revealed a right dominant circulation. The RCA revealed intimal irregularities without critical lesions. The left main artery was unremarkable. The LAD revealed diffuse atherosclerosis without critical lesions. The first diagonal vessel revealed a 70% stenosis in its proximal portion. The circumflex artery revealed a patent stent with intimal irregularities without critical lesions. The patient tolerated the procedure well. Angio-Seal was used to close the femoral artery site. In summary, the procedure revealed a decrease in LV function compared to his previous study. This may represent remodelling of the LV. There is segmental wall motion abnormality of the anteroapical segment. Cardiac catheterization revealed a patent stent in the circumflex artery as well as a 70% stenosis in the proximal portion of the first diagonal vessel. Given these findings, the patient's treatment will be continued medical therapy. Emphasize on continue strict cardiac risk reduction program and blood pressure control would be appropriate. Dave Osullivan MD
[2017-12-19 13:38] VITALS: BP 125/75; PULSE 64
== END 2017-12-19 14:30 | disposition home or self-care (01) ==
LOC: CATH 06:40
PROVIDERS: ATTEND Internal Medicine Cardiovascular Disease
DX: I25.110 Atherosclerotic heart disease of native coronary artery with unstable angina pectoris (principal); I25.2 Old myocardial infarction; Z95.5 Presence of coronary angioplasty implant and graft
CPT/HCPCS: 93458; 99152; 99153; C1760; C1769; C2629; J1644; J2250; J3010; J7030; J7040; Q9966; Q9967